=== PATIENT | male | born 1955 | race Caucasian/White ===

== ENCOUNTER 2017-03-18 07:10 | Outpatient (CLI) | payer MEDICAID | END 2017-03-18 07:11 | disposition critical access hospital (66) | LOC: EMS 07:10 | PROVIDERS: ATTEND Surgery | DX: R10.9 Unspecified abdominal pain (principal) | CPT/HCPCS: A0425; A0427 ==

== ENCOUNTER 2017-03-18 07:55 | Emergency (ER) | payer MEDICAID ==
[2017-03-18] MEDS ORDERED: SODIUM CHLORIDE 0.9% 1,000 ML IV ONE ×2 (08:08→10:36)
[2017-03-18] MEDS ORDERED: HYDROmorphone 1 MG/ML SYRINGE IVP STA ×4 (08:08→12:18)
[2017-03-18] MEDS ORDERED: ONDANSETRON 4 MG/2 ML VIAL IVP STA (08:08)
[2017-03-18] MEDS ORDERED: ONDANSETRON 4 MG/2 ML VIAL ONE (08:11)
[2017-03-18] MEDS ORDERED: HYDROmorphone 1 MG/ML SYRINGE ONE ×4 (08:11→12:21)
--- NOTE | 2017-03-18 08:12 | ED Physician Documentation ---
PD HPI ABD PAIN - Stated complaint Stated Complaint: ABD PAIN - Chief complaint Chief Complaint: Abd Pain - History obtained from History obtained from: Patient, EMS - History of Present Illness Timing - onset: How many days ago (2) Timing - duration: Days (2) Timing - details: Gradual onset, Still present, Waxing and waning (severe stabbing character at times.) Quality: Cramping, Aching, Pain Location: LUQ Radiation: Left flank. No: Chest Improved by: No: Eating Worsened by: No: Eating Associated symptoms: Fever (today), Nausea, Vomiting (once yesterday), Diarrhea (once yesterday and once today), Loss of appetite (today). No: Dysuria, Hematuria, Chest pain, Near syncope / syncope Similar symptoms before: Has not had sx before Recently seen: Clinic (has had 2 weeks of mid crampy abd pain not associated with eating. Seen at clinic and Rx Protonix but had not really changed. Has started an antidepressant a month ago and does not feel any side effects at time of starting it.) Review of Systems Constitutional: reports: Fever (today) Nose: denies: Rhinorrhea / runny nose, Congestion Throat: denies: Sore throat Cardiac: denies: Chest pain / pressure, Palpitations Respiratory: denies: Dyspnea, Cough, Wheezing GI: reports: Abdominal Pain, Nausea, Vomiting, Diarrhea. denies: Constipation, Hematemesis, Bloody / black stool : denies: Dysuria, Frequency Skin: reports: Rash (scaly rash left lower leg using steroid cream on it.) Musculoskeletal: denies: Neck pain, Back pain Neurologic: denies: Generalized weakness, Near syncope PD PAST MEDICAL HISTORY - Past Medical History Past Medical History: Yes Cardiovascular: Hypertension Respiratory: None Neuro: None Endocrine/Autoimmune: None GI: None Psych: Anxiety Other Past Medical History: gastritis - Past Surgical History Past Surgical History: No - Present Medications Home Medications: Ambulatory Orders Medication Instructions Recorded Confirmed Atenolol 100 mg PO DAILY 03/18/17 03/18/17 Bupropion HCl 100 mg PO DAILY 03/18/17 03/18/17 Fexofenadine HCl 180 mg PO DAILY 03/18/17 03/18/17 Fluticasone [Flonase] 1 spray PO DAILY 03/18/17 03/18/17 Lisinopril 40 mg PO DAILY 03/18/17 03/18/17 Pantoprazole [Protonix] 40 mg PO DAILY 03/18/17 03/18/17 Sertraline [Zoloft] 100 mg PO DAILY 03/18/17 03/18/17 - Allergies Allergies/Adverse Reactions: Allergies Allergy/AdvReac Type Severity Reaction Status Date / Time No Known Drug Allergies Allergy Verified 03/18/17 08:03 - Social History Does the pt smoke?: Yes Smoking Status: Current every day smoker Does the pt drink ETOH?: Yes ETOH Use: Liquor Substance Use and Type: Marijuana PD ED PE NORMAL - Vitals Vital signs reviewed: Yes - General General: Alert and oriented X 3, Well developed/nourished, Other (appears in pain intermittently, more with movement. ) - HEENT HEENT: PERRL (nonicteric), Pharynx benign, Other (hearing aids noted.) - Neck Neck: Supple, no meningeal sign, No adenopathy - Cardiac Cardiac: RRR, No murmur - Respiratory Respiratory: Clear bilaterally - Abdomen Abdomen: Normal bowel sounds, Soft, Non distended, No organomegaly, Other ( tender Left upper to mid abed with guarding. No perucssion tenderness. Some referred tender from LLQ. ) - Male Male : Deferred - Rectal Rectal: Deferred - Back Back: No CVA TTP - Derm Derm: Normal color - Extremities Extremities: No tenderness to palpate, No edema, No calf tenderness / cord - Neuro Neuro: Alert and oriented X 3, No motor deficit, Normal speech - Psych Psych: Normal mood, Normal affect Results - Vitals Vitals: Vital Signs - 24 hr 03/18/17 07:51 Temperature 38.4 C H Heart Rate 100 Respiratory 20 Rate Blood Pressure 160/74 H O2 Saturation 97 Oxygen O2 Source Room air - Labs Labs: Laboratory Tests 03/18/17 03/18/17 03/18/17 08:37 08:37 10:50 WBC 11.4 H RBC 3.53 L Hgb 8.4 L Hct 26.4 L MCV 74.9 L MCH 23.7 L MCHC 31.7 L RDW 18.7 H Plt Count 295 MPV 7.5 Neut # 9.7 H Lymph # 0.5 L [place] # 1.1 H Eos # 0.0 Baso # 0.0 Absolute Nucleated RBC 0.00 Nucleated RBCs 0.0 Sodium 137 Potassium 3.4 L Chloride 103 Carbon Dioxide 25 Anion Gap 9.0 BUN 16 Creatinine 0.9 Estimated GFR (MDRD) 85 L Glucose 119 H Calcium 8.5 Magnesium 1.9 Total Bilirubin 0.5 AST 18 ALT 13 Alkaline Phosphatase 63 Total Protein 6.3 L Albumin 3.3 Globulin 3.0 Albumin/Globulin Ratio 1.1 Lipase 24 Urine Color YELLOW Urine Clarity CLEAR Urine pH 5.0 Ur Specific [place] 1.010 Urine Protein NEGATIVE Urine Glucose (UA) NEGATIVE Urine Ketones NEGATIVE Urine Occult Blood MODERATE H Urine Nitrite NEGATIVE Urine Bilirubin NEGATIVE Urine Urobilinogen 0.2 (NORMAL) Ur Leukocyte Esterase NEGATIVE Urine RBC 0-5 Urine WBC 0-3 Ur Squamous Epith Cells NONE SEEN Urine Bacteria None Seen Ur Microscopic Review INDICATED Urine Culture Comments NOT INDICATED - Rads (name of study) abd CT Radiology: Prelim report reviewed, Discussed with rads (inflammation around transverse colon with 2.8 cm coalescence c/w early abscess. Also mesenteric nodes and possible liver ledions, rasing concern for colon Ca rather than diverticula.) PD MEDICAL DECISION MAKING - ED course Complexity details: considered differential (seems likely diverticulitis. Not had it in the past. Will get CT to eval for potential abscess/perf given the degree of pain. ), d/w patient, d/w information technology consultant (Dr. Fuller, surgery, with concern of the 2.8 cm abscess, that IR might be needed and suggests transfer. ) , other (Talked with Dr. Rojas, surgery at [facility], who accepts the patient. ) Departure - Departure Clinical Impression: Lesion of colon Diverticulitis Qualifiers: Diverticulitis site: large intestine Diverticulitis bleeding: without bleeding Diverticulitis complication: with abscess Qualified Code(s): K57.20 - Diverticulitis of large intestine with perforation and abscess without bleeding Abdominal pain Qualifiers: Abdominal location: left upper quadrant Qualified Code(s): R10.12 - Left upper quadrant pain Condition: Stable Record reviewed to determine appropriate education?: Yes
[2017-03-18] MEDS ORDERED: ACETAMINOPHEN 1,000 MG/100 ML 100 ML IV STA (08:53)
[2017-03-18] MEDS ORDERED: ACETAMINOPHEN 1,000 MG/100 ML 100 ML IV ONE (08:56)
[2017-03-18 09:02] LABS: BASOPHILS % (AUTO) 0.2 %; HCT - HEMATOCRIT 26.4 % (42.0-52.0); HGB - HEMOGLOBIN 8.4 g/dL (14.0-18.0); LYMPHOCYTES # (AUTO) 0.5 10^3/uL (1.5-3.5); LYMPHOCYTES % (AUTO) 4.6 %; MEAN CORPUSCULAR HEMOGLOBIN 23.7 pg (27.0-31.0); MEAN CORPUSCULAR HGB CONC 31.7 g/dL (32.0-36.0); MEAN CORPUSCULAR VOLUME 74.9 fL (80.0-94.0); MEAN PLATELET VOLUME 7.5 fL (7.4-11.4); MONOCYTES # (AUTO) 1.1 10^3/uL (0.0-1.0); MONOCYTES % (AUTO) 9.9 %; NEUTROPHILS # (AUTO) 9.7 10^3/uL (1.5-6.6); NEUTROPHILS % (AUTO) 85.3 %; RED BLOOD COUNT 3.53 10^6/uL (4.70-6.10); RED CELL DISTRIBUTION WIDTH 18.7 % (12.0-15.0); UNCORRECTED WHITE BLOOD COUNT 11.4 x10^3/uL; WHITE BLOOD COUNT 11.4 x10^3/uL (4.8-10.8)
[2017-03-18 09:05] LABS: ALBUMIN/GLOBULIN RATIO 1.1 (1.0-2.2); BILIRUBIN,TOTAL 0.5 mg/dL (0.2-1.0); CALCIUM 8.5 mg/dL (8.5-10.3); CREATININE 0.9 mg/dL (0.6-1.2); MAGNESIUM 1.9 mg/dL (1.7-2.8); POTASSIUM 3.4 mmol/L (3.5-5.0); TOTAL PROTEIN 6.3 g/dL (6.7-8.2)
[2017-03-18] MEDS ORDERED: IOPAMIDOL-300 100 ML VIAL IVP ONE (09:35)
[2017-03-18] MEDS ORDERED: metroNIDAZOLE 500 MG/100 ML 100 ML IV ONE (10:11)
[2017-03-18] MEDS ORDERED: cefTRIAXone 1 GM in SODIUM CHLORIDE 0.9% MINIBAG 100 ML IV STA (10:12)
--- NOTE | 2017-03-18 10:23 | CT Preliminary Report ---
Exam: CT Abdomen/Pelvis W/ IMPRESSION: 1. Inflammatory change greatest in left upper quadrant involving left aspect of transverse colon. Com plex air and fluid collection between colon and anterior abdominal wall may represent a giant diverti culum with inflammation, however, abscess measuring 2.8 cm diameter is not excluded. 2. Nonspecific colon wall thickening in transverse colon may be related to diverticulitis. Perforated colonic neoplasm not excluded. Free fluid in the abdomen and pelvis small in volume. No additional l oculated collection suspicious for abscess. No generalized free air. 3. Probable adenopathy in left upper quadrant and mid abdomen. Largest probable node 1.6 x 1.4 x 1.6 cm. Lymph nodes show suspicious low-attenuation centers with relative increased rim enhancement. 4. Multifocal liver masses suspicious for metastasis. 5. Nonspecific pancreatic duct dilation and probable pancreas divisum. No discrete pancreatic mass se en. 5. Exam otherwise as above. Report telephoned to Dr. Hernandez at [facility] 10:10 AM 03/18/2017. RADIA The above findings were discussed with Dr. Hernandez by Dr. Aydin Knox at 10:21 hrs on 03/18/17. SITE ID: [id number]
--- NOTE | 2017-03-18 10:26 | CT Report ---
EXAM: CT ABDOMEN AND PELVIS EXAM DATE: 03/18/2017 09:37 AM. CLINICAL HISTORY: Left abd pain for 2 days. COMPARISONS: None. TECHNIQUE: Routine helical CT imaging was performed through the abdomen and pelvis. IV contrast: 100 mL Isovue 300. Enteric contrast: No. Reconstructions: Coronal and sagittal. In accordance with CT protocol optimization, one or more of the following dose reduction techniques w ere utilized for this exam: automated exposure control, adjustment of mA and/or KV based on patient s ize, or use of iterative reconstructive technique. FINDINGS: Lung Bases: Heart size upper limits normal. Otherwise unremarkable. Liver: Multifocal areas of low attenuation in left and right lobe of liver. Pattern is suspicious for metastasis. Largest mass 3.7 cm diameter in subdiaphragmatic right lobe, series 3 image 16. Largest low-attenuation focus in the left lobe segment 3 measures 3.4 cm diameter, series 3 image 27. Gallbladder/Bile Ducts: Unremarkable. Spleen: Normal. Pancreas: Nonspecific prominence of main pancreatic duct measuring up to 4 mm in diameter in the panc reatic head and body. Ductal pattern in pancreas suspicious for pancreas disease and. No mass seen. O therwise unremarkable. Adrenal Glands: Normal. Kidneys: Subcentimeter low-attenuation lower pole focus most likely representing cyst on axial image 46. No additional masses, stones or hydronephrosis. Peritoneal Cavity/Bowel: Complex air and fluid collection between abdominal wall and anterior aspect of distal transverse colon, axial image 40 sagittal image 16, measuring 2.8 x 2.7 x 1.7 cm. Surroundi ng inflammatory change and adjacent thick-walled transverse colon. Multiple diverticula are seen in t he colon. Free fluid in the paracolic gutters and in the dependent pelvis. No generalized free intrap eritoneal air. No bowel obstruction. Multiple Probable enlarged lymph nodes in left upper abdomen and midabdomen anterior. Largest probable node in greater omentum axial image 3 sagittal image 6 14 x 16 x 16 mm. Lymph nodes show a typical pattern of low attenuation centrally. Pelvic Organs: The bladder and visualized pelvic organs are within normal limits. Vasculature: No aneurysms or other significant abnormality. Bones: No bone lesions suspicious for malignancy. No significant abnormality. Other: None. IMPRESSION: 1. Inflammatory change greatest in left upper quadrant involving left aspect of transverse colon. Com plex air and fluid collection between colon and anterior abdominal wall may represent a giant diverti culum with inflammation, however, abscess measuring 2.8 cm diameter is not excluded. 2. Nonspecific colon wall thickening in transverse colon may be related to diverticulitis. Perforated colonic neoplasm not excluded. Free fluid in the abdomen and pelvis small in volume. No additional l oculated collection suspicious for abscess. No generalized free air. 3. Probable adenopathy in left upper quadrant and mid abdomen. Largest probable node 1.6 x 1.4 x 1.6 cm. Lymph nodes show suspicious low-attenuation centers with relative increased rim enhancement. 4. Multifocal liver masses suspicious for metastasis. 5. Nonspecific pancreatic duct dilation and probable pancreas divisum. No discrete pancreatic mass se en. 5. Exam otherwise as above. Report telephoned to Dr. Hernandez at [facility] 10:10 AM 03/18/2017. RADIA The above findings were discussed with Dr. Hernandez by Dr. Aydin Knox at 10:21 hrs on 03/18/17. Referring Provider Line: [phone] SITE ID: [id number]
[2017-03-18] MEDS ORDERED: cefTRIAXone 1 GM VIAL ONE (10:56)
[2017-03-18 10:57] LABS: BILIRUBIN,URINE NEGATIVE (NEGATIVE)
[2017-03-18 11:02] LABS: UA w/ MICROSCOPIC CHARGE YES
[2017-03-18 11:13] LABS: UR CULTURE IF IND NOT INDICATED; WBC,URINE 0-3 /HPF (0-3)
[2017-03-18] MEDS ORDERED: metroNIDAZOLE 500 MG/100 ML 100 ML ONE (12:11)
[2017-03-18 13:01] VITALS: BP 154/74
== END 2017-03-18 12:22 | disposition short-term general hospital (02) ==
LOC: ED 07:55
DX: K63.9 Disease of intestine, unspecified (principal); K57.20 Diverticulitis of large intestine with perforation and abscess without bleeding; I10 Essential (primary) hypertension; F17.200 Nicotine dependence, unspecified, uncomplicated
CPT/HCPCS: 36415; 74177; 80053; 81001; 83690; 83735; 85025; 96361; 96365; 96375; 96376; 99284; 99285; J0131; J1170; Q9967; 81003; 87086

== ENCOUNTER 2017-03-18 12:30 | Outpatient (CLI) | payer MEDICAID | END 2017-03-18 12:31 | disposition short-term general hospital (02) | LOC: EMS 12:30 | PROVIDERS: ATTEND Surgery | DX: R10.9 Unspecified abdominal pain (principal) | CPT/HCPCS: A0170; A0425; A0428 ==

== ENCOUNTER 2017-05-18 09:50 | Outpatient (CLI) | payer MEDICAID ==
[2017-05-18 18:02] LABS: BASOPHILS % (AUTO) 0.8 %; EOSINOPHILS # (AUTO) 0.3 10^3/uL (0.0-0.7); EOSINOPHILS % (AUTO) 5.2 %; HCT - HEMATOCRIT 40.2 % (42.0-52.0); HGB - HEMOGLOBIN 13.2 g/dL (14.0-18.0); LYMPHOCYTES # (AUTO) 2.3 10^3/uL (1.5-3.5); LYMPHOCYTES % (AUTO) 38.5 %; MEAN CORPUSCULAR HEMOGLOBIN 26.6 pg (27.0-31.0); MEAN CORPUSCULAR HGB CONC 32.8 g/dL (32.0-36.0); MEAN CORPUSCULAR VOLUME 81.1 fL (80.0-94.0); MONOCYTES # (AUTO) 0.7 10^3/uL (0.0-1.0); MONOCYTES % (AUTO) 12.3 %; NEUTROPHILS # (AUTO) 2.5 10^3/uL (1.5-6.6); NEUTROPHILS % (AUTO) 43.2 %; NUCLEATED RED BLOOD CELLS AUTO 0.1 /100WBC; RED BLOOD COUNT 4.96 10^6/uL (4.70-6.10); RED CELL DISTRIBUTION WIDTH 25.3 % (12.0-15.0); UNCORRECTED WHITE BLOOD COUNT 5.9 x10^3/uL; WHITE BLOOD COUNT 5.9 x10^3/uL (4.8-10.8)
[2017-05-18 18:28] LABS: PLATELET ESTIMATE, MANUAL NORMAL (130-450,000) (NORMAL); PLATELET MORPHOLOGY NORMAL APPEARANCE (NORMAL)
[2017-05-18 18:41] LABS: ALBUMIN/GLOBULIN RATIO 1.5 (1.0-2.2); BILIRUBIN,TOTAL 0.5 mg/dL (0.2-1.0); BUN - BLOOD UREA NITROGEN 17 mg/dL (6-20); CALCIUM 9.8 mg/dL (8.5-10.3); CARBON DIOXIDE - CO2 26 mmol/L (21-32); CHLORIDE 109 mmol/L (101-111); GFR - MDRD 75 (>89); GLUCOSE 100 mg/dL (70-100); POTASSIUM 4.2 mmol/L (3.5-5.0); SODIUM 141 mmol/L (135-145); TOTAL PROTEIN 7.2 g/dL (6.7-8.2)
== END 2017-05-18 09:51 | disposition home or self-care (01) ==
LOC: LAB.F 09:50
PROVIDERS: ATTEND Internal Medicine
DX: R51 Headache (principal)
CPT/HCPCS: 36415; 80053; 85025; 85651; 86140

== ENCOUNTER 2017-09-19 14:42 | Outpatient (CLI) | payer MEDICAID | END 2017-09-19 14:43 | disposition home or self-care (01) | LOC: LAB.F 14:42 | PROVIDERS: ATTEND Internal Medicine Hematology & Oncology | DX: Z53.9 Procedure and treatment not carried out, unspecified reason (principal) ==

== ENCOUNTER 2017-09-26 13:56 | Emergency (ER) | payer MEDICAID ==
--- NOTE | 2017-09-26 16:29 | XRAY Preliminary Report ---
Exam: XR CHEST 2 VIEW PA/LAT IMPRESSION: No acute disease. RADIA SITE ID: [id number]
--- NOTE | 2017-09-26 16:32 | XRAY Report ---
EXAM: CHEST RADIOGRAPHY EXAM DATE: 09/26/2017 04:22 PM. CLINICAL HISTORY: Chest pain . COMPARISON: None. TECHNIQUE: 2 views. FINDINGS: Lungs/Pleura: Hyperexpanded with flattened diaphragm compatible with COPD. No localized infiltrate, c onsolidation, effusion, or pneumothorax. Mediastinum: Heart and mediastinal contours are unremarkable. Upper lobe vessels not distended. Other: Right Port-A-Cath. IMPRESSION: No acute disease. RADIA Referring Provider Line: [phone] SITE ID: [id number]
--- NOTE | 2017-09-26 16:52 | ED Physician Documentation ---
History of Present Illness - Stated complaint Stated Complaint: ESOPHIGIAL PX - Chief complaint Chief Complaint: Abd Pain - History obtained from History obtained from: Patient (pt is here for 4 days of problems swallowing. Pt states that 30 years ago he had an impacted Food bolus. had a scope in the past but that was 15 years ago. he states that 4 days ago he started to have pain with swallowing. is under chemo for colon cancer, no chest pain, no shortness of breath, did have some streaking of blood with a vomit.) Review of Systems Constitutional: denies: Fever, Chills Cardiac: reports: Chest pain / pressure (epigastric pain). denies: Palpitations Respiratory: denies: Dyspnea, Cough GI: reports: Abdominal Pain (epigastric pain), Other (colostomy bag in place). denies: Abdominal Swelling, Nausea : denies: Dysuria, Frequency Skin: denies: Rash, Lesions Musculoskeletal: denies: Joint swelling PD PAST MEDICAL HISTORY - Past Medical History Past Medical History: Yes Cardiovascular: Hypertension Respiratory: None Neuro: None Endocrine/Autoimmune: None GI: None, Esophageal varices Psych: Anxiety Other Past Medical History: colon CA - Past Surgical History Past Surgical History: No General: Bowel surgery - Present Medications Home Medications: Ambulatory Orders Medication Instructions Recorded Confirmed Atenolol 100 mg PO DAILY 03/18/17 09/26/17 Lisinopril 40 mg PO DAILY 03/18/17 09/26/17 Sertraline [Zoloft] 100 mg PO DAILY 03/18/17 09/26/17 Multivitamin [Multiple Vitamins] 1 each PO DAILY 04/24/17 09/26/17 Vitamin B Complex 1 each PO DAILY 04/24/17 09/26/17 Omeprazole [PriLOSEC] 20 mg PO DAILY 06/13/17 09/26/17 HYDROcod/ACETAM 5/325 [[place] 5/325] 1 - 2 tab ORAL Q4HR PRN 06/30/17 09/26/17 Fexofenadine HCl 180 mg PO DAILY 07/12/17 09/26/17 LORazepam [Ativan] 0.5 mg PO HS 08/22/17 09/26/17 Prochlorperazine Maleate 10 mg PO Q6H PRN 08/22/17 09/26/17 [Compazine] Ondansetron [Zuplenz] 4 mg PO Q4H PRN #30 film 08/25/17 09/26/17 Sucralfate [Carafate] 1 gm PO ACHS #120 ml 09/26/17 - Allergies Allergies/Adverse Reactions: Allergies Allergy/AdvReac Type Severity Reaction Status Date / Time No Known Drug Allergies Allergy Verified 03/18/17 08:03 - Social History Does the pt smoke?: Yes Smoking Status: Current every day smoker Does the pt drink ETOH?: Yes Does the pt have substance abuse?: No - POLST Patient has POLST: No PD ED PE NORMAL - Vitals Vital signs reviewed: Yes - General General: Alert and oriented X 3, No acute distress, Well developed/nourished - Cardiac Cardiac: RRR, No murmur - Respiratory Respiratory: No respiratory distress, Clear bilaterally - Abdomen Abdomen: Non tender, Other (colostomy bag in place ) - Derm Derm: Normal color, No rash - Neuro Neuro: Alert and oriented X 3, press maintainer 2-12 intact, No motor deficit, No sensory deficit Eye Opening: Spontaneous Motor: Obeys Commands Verbal: Oriented GCS Score: 15 - Psych Psych: Normal mood, Normal affect Results - Vitals Vitals: Vital Signs - 24 hr 09/26/17 09/26/17 09/26/17 14:03 15:50 16:14 Temperature 36.4 C L 36.8 C Heart Rate 83 64 72 Respiratory 18 15 13 Rate Blood Pressure 140/89 H 141/73 H 142/79 H O2 Saturation 99 99 98 09/26/17 16:50 Temperature 37.1 C Heart Rate 67 Respiratory 10 L Rate Blood Pressure 135/83 H O2 Saturation 99 Oxygen O2 Source Room air - Rads (name of study) CXR Radiology: Final report received PD MEDICAL DECISION MAKING - ED course Complexity details: d/w patient ED course: pt has a benign abdominal exam. CXR neg. pt with hx and PE that is C/W strictures. we discussed this. pt is on prilosec. No need for emergent GI consult. He has been in contact with a GI provider but does not have an appointment yet. Pt is not dehydrated. we discussed liquid diet and return precautions. Departure - Departure Disposition: 01 Home, Self Care Clinical Impression: Esophageal abnormality, Dysphagia Condition: Good Instructions: Dysphagia Follow-Up: primary, care provider [Other] Prescriptions: Sucralfate [Carafate] 1 gm PO ACHS #120 ml Comments: Chew your food. Recommend a mainly liquid diet until you see a GI provider. Return to the ER for any new worsening symptoms.
[2017-09-26 17:12] VITALS: BP 143/84
== END 2017-09-26 17:11 | disposition home or self-care (01) ==
LOC: ED 13:56
DX: R13.10 Dysphagia, unspecified (principal); K22.8 Other specified diseases of esophagus; I10 Essential (primary) hypertension; C18.9 Malignant neoplasm of colon, unspecified; F17.200 Nicotine dependence, unspecified, uncomplicated; Z93.3 Colostomy status; Z92.21 Personal history of antineoplastic chemotherapy
CPT/HCPCS: 71020; 99283

== ENCOUNTER 2018-01-26 13:20 | Emergency (ER) | payer MEDICAID ==
[2018-01-26] MEDS ORDERED: TETANUS/DIPHTHERIA/PERTUSSIS 0.5 ML SYRINGE IM ONE (13:55)
--- NOTE | 2018-01-26 13:59 | ED Physician Documentation ---
PD HPI UPPER EXT INJURY - Stated complaint Stated Complaint: L THUMB LAC - Chief complaint Chief Complaint: Laceration - History obtained from History obtained from: Patient - History of Present Illness Location: Left, Other (He cut his left thumb yesterday while working, he was chopping vegetables. Tetanus is unknown. No other injuries. This is about 10 AM yesterday, 27 hours ago.) Review of Systems Constitutional: reports: Reviewed and negative Cardiac: reports: Reviewed and negative Respiratory: reports: Reviewed and negative PD PAST MEDICAL HISTORY - Past Medical History Past Medical History: Yes Cardiovascular: Hypertension Respiratory: None Neuro: None Endocrine/Autoimmune: None GI: None, Esophageal varices Psych: Anxiety - Past Surgical History Past Surgical History: No General: Bowel surgery - Present Medications Home Medications: Ambulatory Orders Medication Instructions Recorded Confirmed Atenolol 100 mg PO DAILY 03/18/17 01/09/18 Lisinopril 40 mg PO DAILY 03/18/17 01/09/18 Sertraline [Zoloft] 100 mg PO DAILY 03/18/17 01/09/18 Multivitamin [Multiple Vitamins] 1 each PO DAILY 04/24/17 01/09/18 Vitamin B Complex 1 each PO DAILY 04/24/17 01/09/18 Fexofenadine HCl 180 mg PO DAILY 07/12/17 01/09/18 LORazepam [Ativan] 0.5 mg PO HS 08/22/17 01/09/18 Ondansetron [Zuplenz] 4 mg PO Q4H PRN #30 film 08/25/17 01/09/18 Sucralfate [Carafate] 1 gm PO BID 10/03/17 01/09/18 Gabapentin 300 mg PO DAILY 12/12/17 01/09/18 HYDROcod/ACETAM 5/325 [[place] 5/325] 1 - 2 tab ORAL Q12H PRN 12/12/17 01/09/18 Sucralfate [Carafate] 1 gm PO ACHS 12/12/17 01/09/18 HYDROcod/ACETAM 5/325 [[place] 5/325] 1 - 2 ea PO Q6H PRN #7 tablet 01/26/18 - Allergies Allergies/Adverse Reactions: Allergies Allergy/AdvReac Type Severity Reaction Status Date / Time No Known Drug Allergies Allergy Verified 01/26/18 13:47 - Social History Does the pt smoke?: Yes Smoking Status: Current every day smoker Does the pt drink ETOH?: Yes Does the pt have substance abuse?: No - Immunizations Immunizations are current?: No - POLST Patient has POLST: No PD ED PE NORMAL - Vitals Vital signs reviewed: Yes - General General: Alert and oriented X 3, No acute distress - Back Back: No CVA TTP, No spinal TTP - Extremities Extremities: Other (On the tip of the left thumb he has a partial thickness amputation of skin only measuring less than 1 cm.) - Neuro Neuro: Alert and oriented X 3, Normal speech Results - Vitals Vitals: Vital Signs - 24 hr 01/26/18 13:41 Temperature 36.9 C Heart Rate 62 Respiratory 14 Rate Blood Pressure 131/79 H O2 Saturation 95 Oxygen O2 Source Room air PD MEDICAL DECISION MAKING - ED course ED course: The wound was irrigated and dressed with Vaseline gauze and tube gauze and he was counseled on wound care. This should heal without specific intervention otherwise. Departure - Departure Disposition: 01 Home, Self Care Clinical Impression: Amputation, thumb, traumatic Qualifiers: Encounter type: initial encounter Laterality: left Qualified Code(s): S68.012A - Complete traumatic metacarpophalangeal amputation of left thumb, initial encounter Condition: Good Record reviewed to determine appropriate education?: Yes Instructions: ED Laceration Amputation Finger Tip Open Tx Prescriptions: HYDROcod/ACETAM 5/325 [[place] 5/325] 1 - 2 ea PO Q6H PRN #7 tablet PRN Reason: Pain Comments: Follow-up with your doctor next week for wound care. Return if worse. Your blood pressure was elevated today on check into the emergency department. This does not mean that you have hypertension, it is a common phenomenon to come to the emergency department and have elevated blood pressure. I recommend that you see your primary care physician within the week to have it rechecked when you are feeling better.
[2018-01-26 14:23] VITALS: BP 121/78
== END 2018-01-26 14:21 | disposition home or self-care (01) ==
LOC: ED 13:20
DX: S68.012A Complete traumatic metacarpophalangeal amputation of left thumb, initial encounter (principal); W45.8XXA Other foreign body or object entering through skin, initial encounter; Y93.G9 Activity, other involving cooking and grilling; I10 Essential (primary) hypertension; F17.200 Nicotine dependence, unspecified, uncomplicated
CPT/HCPCS: 99283

== ENCOUNTER 2019-02-28 11:46 | Outpatient (CLI) | payer MEDICARE, OTHER ==
[2019-02-28] MEDS ORDERED: IOVERSOL 320 50 ML VIAL ONE (12:01)
[2019-02-28] MEDS ORDERED: IOVERSOL 320 100 ML VIAL IVP ONE ×2 (12:01→18:09)
[2019-02-28] MEDS ORDERED: IOVERSOL 320 50 ML VIAL PO ONE (18:09)
--- NOTE | 2019-03-01 00:04 | CT Report ---
Reason: COLON CA, NEUROPATHY Procedure Date: 02/28/2019 Accession Number: [id number] / [id number] Procedure: CT - CHEST W CPT Code: FULL RESULT: EXAM: CT CHEST EXAM DATE: 02/28/2019 01:31 PM. CLINICAL HISTORY: COLON CA, NEUROPATHY. COMPARISONS: CHEST W/ 10/30/2018 9:44 AM. TECHNIQUE: Routine helical CT imaging was performed through the chest. IV contrast: None. Reconstructions: Coronal and sagittal. In accordance with CT protocol optimization, one or more of the following dose reduction techniques were utilized for this exam: automated exposure control, adjustment of mA and/or KV based on patient size, or use of iterative reconstructive technique. FINDINGS: Lungs/Pleura: There are a few scattered pulmonary nodules. Right upper lobe, series 3 image 20 small 3 mm nodule contiguous with the pleura unchanged. Left upper lobe series 3 image 21. Small pulmonary nodule measuring 5 mm unchanged. Superior segment left lower lobe series 3 image 28 small 3 mm pulmonary nodule unchanged. Left upper lobe series 3 image 31 small 3 mm pulmonary nodule unchanged. Small pulmonary nodule left lower lobe series 3 image 46 measuring 7 mm unchanged. Left lower lobe close to the left heart border small pulmonary nodule on series 3 image 54 measuring 8 mm slightly less conspicuous. Also on series 3 image 56 and other pulmonary nodule in the left lower lobe measuring 6 mm less conspicuous than on the prior study. Right lower lobe series 3 image 49 small 4 mm pulmonary nodule unchanged. Right lower lobe series 3 image 48 small pulmonary nodule measuring 8 mm unchanged. Importantly, no new pulmonary nodules have developed. Mediastinum: The diameter of the ascending thoracic aorta is aneurysmal measuring 48 mm. The diameter of the descending thoracic aorta measures 27 mm. The heart is not enlarged. There is no lymphadenopathy. Bones: Unremarkable. Visualized Abdomen: Unremarkable. Other: None. IMPRESSION: 1. Several small bilateral pulmonary nodule stable compared to the prior study. 2. Aneurysmal ascending thoracic aorta. No evidence for dissection. RADIA
--- NOTE | 2019-03-01 10:19 | CT Report ---
Reason: COLON CA, NEUROPATHY Procedure Date: 02/28/2019 Accession Number: [id number] / [id number] Procedure: CT - Abdomen/Pelvis W CPT Code: FULL RESULT: EXAM: CT ABDOMEN AND PELVIS WITH IV CONTRAST EXAM DATE: 02/28/2019 01:31 PM. CLINICAL HISTORY: Colon cancer, neuropathy. COMPARISONS: 10/30/2018. TECHNIQUE: Routine helical CT imaging was performed through the abdomen and pelvis. IV contrast: 100 cc of Optiray 320 contrast. Enteric contrast: 50 cc of Readi-Cat. Reconstructions: Coronal and sagittal. In accordance with CT protocol optimization, one or more of the following dose reduction techniques were utilized for this exam: automated exposure control, adjustment of mA and/or KV based on patient size, or use of iterative reconstructive technique. FINDINGS: Lung Bases: Dictated separately; please see separate chest CT report. Multiple basilar pulmonary nodules consistent with metastases. 3 nodules included on comparison exam of 10/30/2018 show minimal increase in volume. Liver: Multiple hepatic masses as previously described, majority of which are unchanged. Dominant heterogeneously rim-enhancing hypoechoic mass at the junctions of segments 8 and 4 showing interval increase in size, today measuring 42 x 27 x 41 mm compared to 25 x 38 x 29 mm on the prior exam. No new lesions appreciated. Gallbladder/Bile Ducts: Stable cholelithiasis without evidence of cholecystitis. No biliary ductal dilatation. Spleen: Normal. Pancreas: Normal. Adrenal Glands: Normal. Kidneys: No stone or hydronephrosis. Stable probable cortical cyst lower pole left kidney. Peritoneal Cavity/Bowel: Stable operative changes status post partial colectomy with a colostomy over the right mid abdomen. There is a colostomy defect which contains cecum and a portion of ascending colon as well as the ileocecal valve and portions of the appendix. No obstruction. Nonspecific low density in the region of the ileocecal valve most likely artifact of adherent stool. Stable appearance of the Marilyn's pouch with diverticulosis of the sigmoid and long-standing radiodense stool in the rectum. Stomach and small bowel are grossly unremarkable. There is new localized adenopathy in the high interaortocaval station with an 18 mm central low-density node seen best on series 6 image 27. New right pericrural node measuring 15 mm, series 6 image 31. No free fluid or free air. No masses or acute inflammatory process. The appendix is well visualized and normal. Pelvic Organs: Normal. The bladder and visualized pelvic organs are within normal limits. Vasculature: No aneurysms or other significant abnormality. Bones: No significant abnormality. Other: None. IMPRESSION: 1. Evidence of disease progression with enlargement in dominant hepatic mass, new focal adenopathy, and mild increase in size of basilar pulmonary nodules as described. 2. Stable cholelithiasis without evidence of cholecystitis. 3. Stable diverticulosis of the Marilyn's pouch. RADIA
== END 2019-02-28 11:47 | disposition home or self-care (01) ==
LOC: DI 11:46
PROVIDERS: ATTEND Internal Medicine Hematology & Oncology
DX: C18.9 Malignant neoplasm of colon, unspecified (principal); R91.8 Other nonspecific abnormal finding of lung field; I71.2 Thoracic aortic aneurysm, without rupture; R16.0 Hepatomegaly, not elsewhere classified; R59.0 Localized enlarged lymph nodes; K80.20 Calculus of gallbladder without cholecystitis without obstruction; K57.30 Diverticulosis of large intestine without perforation or abscess without bleeding
CPT/HCPCS: 71260; 74177; Q9967

== ENCOUNTER 2019-03-21 09:22 | Outpatient (CLI) | payer MEDICARE, OTHER ==
--- NOTE | 2019-03-21 23:00 | CONSULTATION NOTE ---
Palliative Care Consultation - Referral Referring Provider: Ivonne ALONZO Time of Visit: 0930-10:45 Referral setting: [facility] [place] Referral Reason: Metastatic Colon Cancer with liver mets/Peripheral neuropathy - Information Sources Records reviewed: RN notes reviewed, Previous records reviewed History/Review of Systems obtained from: Patient Exam limitations: No limitations - History of Present Illness Brief History of Present Illness: This is a 64-year-old gentleman who presented with acute pain and diarrhea, after several weeks of distress went to the ED in 03/2017. He was diagnosed with a bowel perforation, and had surgery at [place], this was complicated by alcohol withdrawal, which at that time was problematic, reports has since stopped drinking. He was found to have stage IV metastatic colon cancer with liver involvement, and underwent a laparotomy with transverse colectomy and colostomy with mobilization of the splenic flexure. He was originally treated with modified FOLFOX 6 with Avastin. He did have progression and was treated with FOLFIRI, again with progression and restarted on FOLFOX with Avastin and 02/2019. Last CT scan on 02/28/2019 shows several small bilateral pulmonary nodules stable compared to prior studies, multiple hepatic masses, with evidence of disease progression with enlargement in the dominant hepatic mass, new focal adenopathy, stable cholelithiasis without evidence of cholecystitis.He has high anxiety regarding his prognosis, has progressive peripheral neuropathy and abdominal pain. And presents for establishment with palliative care for pain and symptom management, advanced care planning, and anticipatory guidance. Medical/Surgical History - Past Medical History Cardiovascular: reports: Hypertension Respiratory: reports: None Neuro: reports: Peripheral neuropathy Endocrine/Autoimmune: reports: None GI: reports: GERD, Esophageal varices, Other (abdominal hernia; colostomy for colon cancer with liver mets) Psych: reports: Anxiety Musculoskeletal: reports: Gout, Fatigue, Chronic back pain MRSA Hx?: No - Past Surgical History General: reports: Bowel surgery, EGD - Substance History Use: Uses substance without health or social issues: Tobacco (smokes about 1/2 pack a day), Alcohol (hx of abuse) Social History - Living Situation Living arrangement: At home Living Situation: With family Support System: Patient does have one son, he is in [place]. He reports he is a big support to him. He lives with his mother who is 87 years old, who is starting to show signs and symptoms of 18 and concern about her health. They rent a house in [place], Reports significant financial stressors, he is on [employer] eye disability. 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 He has a father in [place] and stepmother, who is poor health as well, concerned about father's dementia and ability to understand of his condition. [place] have [place]. This is his fourth year here in [facility], reports is not a social person, but does have some friends he has not been able to work because of his difficulty standing on his feet, and pain in his hands. Family History - Family History Family History: Mother: Alive and Well, Father: Alive and Well, Alzheimer's Disease, CAD, Sister: Alive and Well Medications/Allergies - Medications Home Medications: Ambulatory Orders Medication Instructions Recorded Confirmed Atenolol 100 mg PO DAILY 03/18/17 03/22/19 Lisinopril 40 mg PO DAILY 03/18/17 03/22/19 Sertraline [Zoloft] 100 mg PO DAILY 03/18/17 03/22/19 Multivitamin [Multiple Vitamins] 1 each PO DAILY 04/24/17 03/22/19 Vitamin B Complex 1 each PO DAILY 04/24/17 03/22/19 Fexofenadine HCl 180 mg PO DAILY 07/12/17 03/22/19 Oxycodone HCl 10 mg PO Q4HR PRN MDD 5 X DAY 07/24/18 03/22/19 Ondansetron [Zofran Odt] 8 mg PO Q8H PRN 08/21/18 03/22/19 LORazepam [Lorazepam] 0.5 mg PO Q6HR 12/05/18 03/22/19 Cyclobenzaprine [Flexeril] 10 mg PO TID PRN 03/05/19 03/22/19 Pregabalin [Lyrica] 100 mg PO BID MDD titrate tid one 03/22/19 03/22/19 week - Allergies Allergies/Adverse Reactions: Allergies Allergy/AdvReac Type Severity Reaction Status Date / Time No Known Drug Allergies Allergy Verified 03/19/19 10:37 Review of Systems - Constitutional Constitutional: reports: Fatigue, Weight gain. denies: Fever, Chills - Eyes Eyes: reports: Vision loss, Corrective lenses - Ears, Nose & Throat Ears, Nose & Throat: reports: Hearing loss, Hearing aids, Postnasal drainage, Dry mouth - Cardiovascular Cardiovascular: reports: Exertional dyspnea, Decr. exercise tolerance. denies: Chest pain - Respiratory Respiratory: denies: SOB at rest - Gastrointestinal Gastrointestinal: reports: Good appetite, Other (colostomy). denies: Nausea - Musculoskeletal Musculoskeletal: reports: Back pain (recent acute back injury; resolved), Stiffness, Limited range of motion, Muscle weakness - Integumentary Integumentary: reports: Dryness - Neurological Neurological: reports: General weakness, Headache - Psychiatric Psychiatric: reports: Depression, Anxiety - Hematologic/Lymphatic Hematologic/Lymphatic: reports: Anemia - All Other Systems All Other Systems: reports: Reviewed and negative Physical Exam - Vital Signs Pulse Rate: 72 Respiratory Rate: 18 Blood Pressure: 141/104 (has not taken his b/p meds yet) - Physical Exam General Appearance: positive: Alert, Anxious Eyes Bilateral: positive: Normal inspection Neck: positive: No JVD, Trachea midline Cardiovascular: positive: Regular rate & rhythm Respiratory: positive: No respiratory distress, Diminished in bases. negative: Wheezes, Rales, Rhonchi Abdomen: positive: Non-tender, Soft, Other (noted abdominal hernia to right of colostomy; not easily reduced; patient reports weight gain worsened) Skin: positive: Pallor, Dryness Extremities: positive: No pedal edema Neurologic/Psychiatric: positive: Oriented x3, Depressed mood/affect Palliative Care - POLST Patient has POLST: No Pain: Pain worsening, Location (Patient reports worsening pain in his feet, also has bilateral pain in his thumbs, has been evaluated for surgery, orthopedist would not do it with his current health problems. His other pain is mostly mid abdominal kind of vague and achy in nature. He has been on gabapentin 300 mg 3 times daily, for 1 and half years feeling that does not help his peripheral neuropathy. He has oxycodone 5 mg at the limit of 5 and 24 hours, he usually needs to take 2 in the morning as it is acute and worsening. He often runs out as he is having progressive pain. He reports he does have headache now with a fast and this is new, is not addressed by the oxycodone but does respond to intermittent excedrin) Tiredness/Fatigue: Moderate (4-6) Drowsiness/Sedation: Moderate (4-6) Nausea: Mild (1-3) Depression: Moderate (4-6) Anxiety: Moderate (4-6) Dyspnea: Mild (1-3) Anorexia: Moderate (4-6) (patient has actually had weight gain) Sleep: Sleeps poorly, Variable sleep pattern Constipation: No Feelings of wellbeing/Perceived Quality of Life: Fair, Acceptable Performance Status: Patient's activity level is actually limited by his pain, with standing or walking does become worse. He is still able to drive, ambulate short distances and attend his own ADLs. I would put PPS 70% - Palliative Care Discussion: Patient's understanding of his disease is that it is palliative treatment in nature, he is having some increased anxiety with his CEA increasing, and needing to re-start alternative chemotherapy. He would like a more firm prognosis, if he had less than 2 years, he reports there would be other priorities or goals as far as follow-up with his family. Patient recognizes he is getting to the latter years of his original prognosis, but feels he still has several from understanding from oncologist. Patient does have a D POA, his son Mohsen Thorpe [phone] with an alternative of his mother Hodan Luong [phone]. He does have a POLST with attempt CPR/limited additional interventions filled out in May 2018. Patient is not really visited long-term goals are long-term planning regarding his disease, though is quite clear if his time is limited he has some other priorities he would be pursuing. Is very open and eager for me to follow-up with oncologist. Results - Lab Results Lab results reviewed: Yes Impression and Recommendations - Palliative Care Impression: This is a 64-year-old gentleman with metastatic colon cancer with liver and lung mets. Patient presents with poorly controlled pain, peripheral neuropathy secondary to prior chemotherapy, and progressive fatigue. Palliative care to establish rapport, ongoing support for pain and symptom management, and anticipatory guidance. Recommendations/Counseling Done: 1. Pain of neoplastic origin. Patient's most significant pain is actually his feet, limiting his ability to ambulate, tolerate activity. He also has severe neuropathic pain bilaterally in his thumbs, though this is present prior to his diagnosis of 6 to 7 years. Patient has been on gabapentin 300 mg 3 times daily, does not feel this is effective. Discussed could titrate up, or would recommend transitioning to Lyrica. Patient currently with some insurance issues, will go ahead and write prescription for Lyrica 100 mg twice daily, titrate up to 300 mg total over the next 2 to 3 weeks. Patient unable to get covered, will titrate up gabapentin. Patient also not getting adequate relief from 5 mg of oxycodone, he also has deep visceral abdominal pain, most acute first thing the morning. He is to using 2 pills with adequate relief, will increase his oxycodone to 10 mg tabs, given patient's history of substance abuse. Counseling provided regarding management of pain, and limitations at this point will make 5/tabs in 24 hours. Will focus on Lyrica, or titration of gabapentin. If this is not effective will transition over to fentanyl or methadone. 2. Abdominal hernia. Patient has had significant weight gain, discussed current intake and dietary choices. Counseling provided regarding decreasing fat and sugars, patient would benefit from 10 to 15 pound weight loss to decrease discomfort from hernia, and abdominal pressure. Patient verbalized understanding, and participated in problem solving. 3. Anxiety. Patient has multiple stressors including financial. Patient very much would like to have a better idea of his prognosis and expected long-term treatment plan. Will follow up with Dr. Zayas to assist with goal setting. Patient feels if he knew he had 2 years or less, he would be making different priorities and follow-up with his family. Patient's last scan did show progressive disease, and CEA has been increasing. Patient's most recent change in treatment plan was in February 2019, will await next set of scanning, but will continue to provide support and information as available and translation into prognosis. 4. Tobacco abuse. Counseling provided regarding patient's use of tobacco, is smoke about half a pack a day. Instructed prefer patient do not use Chantix given his multiple other medications he is on. Counseling provided just to focus on decreasing number of cigarettes daily, patient is doing it out of habit and with anxiety. Problem solving provided regarding ways to approach his current use. 5. Advanced care planning. Patient hope is to continue to have quality and quantity of life. Patient does have a son in [place], who is his D POA Mohsen Thorpe [phone]. Will revisit [facility] and goals of care and future visits, patient needing more information regarding his current prognosis. He feels he would make different priorities if he knew the "end was sooner". Counseling provided regarding the role of palliative care, and setting of rapport. Time Spent: 75 minutes was given 50% of this done in counseling regarding advanced care planning, pain and symptom management, counseling for safety regarding opioids and transition to Lyrica. Palliative care setting of rapport and counseling role of palliative care support.
== END 2019-03-21 09:23 | disposition home or self-care (01) ==
LOC: PC 09:22
PROVIDERS: ATTEND Nurse Practitioner Adult Health
DX: Z51.5 Encounter for palliative care (principal); C18.9 Malignant neoplasm of colon, unspecified; C78.7 Secondary malignant neoplasm of liver and intrahepatic bile duct; C78.00 Secondary malignant neoplasm of unspecified lung; Z93.3 Colostomy status; I10 Essential (primary) hypertension; G62.9 Polyneuropathy, unspecified; K46.9 Unspecified abdominal hernia without obstruction or gangrene; K21.9 Gastro-esophageal reflux disease without esophagitis; I85.00 Esophageal varices without bleeding; F41.9 Anxiety disorder, unspecified; F32.9 Major depressive disorder, single episode, unspecified; M10.9 Gout, unspecified; R53.83 Other fatigue; G89.29 Other chronic pain; M54.9 Dorsalgia, unspecified; F17.210 Nicotine dependence, cigarettes, uncomplicated; F10.11 Alcohol abuse, in remission; H54.7 Unspecified visual loss; H91.90 Unspecified hearing loss, unspecified ear; R53.1 Weakness; D64.9 Anemia, unspecified; Z74.09 Other reduced mobility; Z79.891 Long term (current) use of opiate analgesic
CPT/HCPCS: 99205

== ENCOUNTER 2019-04-02 11:16 | Outpatient (CLI) | payer MEDICARE, OTHER ==
--- NOTE | 2019-04-02 16:57 | CONSULTATION NOTE ---
Palliative Care Follow Up - Referral Referring Provider: Ivonne ALONZO Time of Visit: [id number] [place] setting[place] [facility] [place] Reason: Pain of neoplastic origin/Peripheral neuropathy/Met Colon Cancer - Information Sources Records reviewed: RN notes reviewed History/Review of Systems obtained from: Patient Exam limitations: No limitations - History of Present Illness Update Brief HPI Update: Patient has stage IV metastatic colon cancer with liver involvement, he is currently on FOLFOX with Avastin. His last CT scan 02/28/2019 showed several small bilateral pulmonary nodules stable compared to prior, but does have some evidence of disease progression with dominant hepatic mass, and new focal adenopathy. Patient has significant peripheral neuropathy, and moderate right upper abdominal pain. Patient's been on gabapentin 300 mg 3 times daily for long period of time, without any improvement. Had prescribed trialing Lyrica, unfortunately his insurance will not cover and he has a significant co-pay. We had titrated up to 400 mg as instructed, we discussed we still have some leeway to go, and we will go ahead and titrate him up to 600 mg 3 times daily, titration schedule provided and patient verbalized understanding. Patient has had better pain control with the oxycodone in his right upper quadrant of 10 mg, he is using about 4 tabs a day. Patient continues with high anxiety, feels like his family does not understand the seriousness of addition, reports if he had a better idea of his prognosis, particularly is less than 2 years, would be setting some different goals. And follow-up with oncology Dr. Zayas, felt he still may have extended past this imposed timeline. Patient will be due for rescanning, come May, at that point in time most likely be more clear as far as patient's ongoing prognosis and response to treatment. Also complaining of increased shortness of breath, this occurs at bedtime when laying flat. Reports continues to have a productive cough of dark brown sputum. He is continuing to smoke a half a pack of cigarettes a day. He reports these episodes last about 2 minutes, resolved with sitting up and taking deep breaths. He does have some expiratory wheezing and fine crackles in his left lower lobe. He does have some Advair and pro-air at home from his last bout of bronchitis. Social History - Living Situation Living arrangement: At home Living Situation: With family Support System: Patient lives with his mother, who is 87 years old, and is declining in health as well. He also has a son in [place], his father is quite ill also. [place] is fairly isolated socially. [place] Medications/Allergies - Medications Home Medications: Ambulatory Orders Medication Instructions Recorded Confirmed Atenolol 100 mg PO DAILY 03/18/17 04/02/19 Lisinopril 40 mg PO DAILY 03/18/17 04/02/19 Sertraline [Zoloft] 150 mg PO DAILY 03/18/17 04/02/19 Multivitamin [Multiple Vitamins] 1 each PO DAILY 04/24/17 04/02/19 Vitamin B Complex 1 each PO DAILY 04/24/17 04/02/19 Fexofenadine HCl 180 mg PO DAILY 07/12/17 04/02/19 Oxycodone HCl 10 mg PO Q4HR PRN MDD 5 X DAY 07/24/18 04/02/19 Ondansetron [Zofran Odt] 8 mg PO Q8H PRN 08/21/18 04/02/19 LORazepam [Lorazepam] 0.5 mg PO Q6HR 12/05/18 04/02/19 Cyclobenzaprine [Flexeril] 10 mg PO TID PRN 03/05/19 04/02/19 Albuterol Sulfate [Proair Hfa 2 puffs INH Q4HR PRN 04/02/19 04/02/19 Inhaler] Gabapentin 600 mg PO TID MDD titrating 04/02/19 04/02/19 - Allergies Allergies/Adverse Reactions: Allergies Allergy/AdvReac Type Severity Reaction Status Date / Time No Known Drug Allergies Allergy Verified 04/02/19 11:38 Review of Systems - Constitutional Constitutional: reports: Fatigue, Weight loss (loss of 5 pounds on purpose with decrease of sugar intake). denies: Fever, Chills - Ears, Nose & Throat Ears, Nose & Throat: reports: Hearing loss, Hearing aids, Nasal congestion - Cardiovascular Cardiovascular: reports: Decr. exercise tolerance - Respiratory Respiratory: reports: Cough, Sputum production (productive brown sputm), SOB with exertion, Other (reports when laying flat get brief episodes breathlessness resolve after 2 minutes; happening nightly; continues to smoke 1/2 pack daily) - Gastrointestinal Gastrointestinal: reports: Abdominal pain, Early satiety. denies: Nausea - Musculoskeletal Musculoskeletal: reports: Stiffness, Limited range of motion, Muscle weakness - Integumentary Integumentary: reports: Dryness - Neurological Neurological: reports: Other (peripheral neuropathy) - Psychiatric Psychiatric: reports: Anxiety (remains very anxious overall about his condition) - Hematologic/Lymphatic Hematologic/Lymphatic: reports: Anemia - All Other Systems All Other Systems: reports: Reviewed and negative Physical Exam - Vital Signs Temperature: 36.5 C Pulse Rate: 57 Respiratory Rate: 19 O2 Saturation: 98 (ra @ rest) Blood Pressure: 135/85 - Physical Exam General Appearance: positive: Anxious Eyes Bilateral: positive: Normal inspection ENT: positive: No signs of dehydration Neck: positive: No JVD, Trachea midline Cardiovascular: positive: Regular rate & rhythm Respiratory: positive: No respiratory distress, Wheezes (exp wheeze LLL; diminished in base) Abdomen: positive: Soft, Nml bowel sounds, Distended Skin: positive: Pallor, Dryness, Other (feet fungus right foot) Extremities: positive: No pedal edema Neurologic/Psychiatric: positive: Oriented x3 Palliative Care - POLST Patient has POLST: Yes POLST Status: Selective Treatment, Full Code Pain: Pain unchanged, Location (On gabapentin 400 mg 3 times daily, unable to access Lyrica secondary to cost and insurance. Is using oxycodone 10 mg up to 4 times a day, with better results. Still reports pain is still limiting as far as ambulation sharp shooting and numbness impacting his ability to be active.), Severity (5/10) Tiredness/Fatigue: Moderate (4-6) Drowsiness/Sedation: Moderate (4-6) Nausea: Moderate (4-6) Depression: Moderate (4-6) Anxiety: Mild (1-3) Dyspnea: Severe (7-10) Anorexia: Moderate (4-6) Sleep: Sleep improved Constipation: No Feelings of wellbeing/Perceived Quality of Life: Fair, Acceptable Performance Status: Patient able to attend his ADLs, though his activity is limited by his pain with standing or walking it becomes worse. He is able to drive currently. I would put him a PPS of 70%. - Palliative Care Discussion: Patient describes still feeling quite depressed, isolated, and perseverating on prognostic fair. When asked what he would do differently, he would travel, and take his mother on a trip. He has many financial constraints, but feels he would follow-up with his father regarding this. He feels currently that his family does not take in the seriousness of his underlying diagnosis. He would also spend more time with his son as well as perhaps moved back down to [place]. Impression and Recommendations - Palliative Care Impression: This is a 64-year-old gentleman with metastatic colon cancer to the liver and lung. Patient continues with poorly controlled pain mostly related to his ro pheral neuropathy induced by prior chemotherapy, and ongoing progressive fatigue. He does present with some new respiratory symptoms, and has had some weight loss, though this is intentional. Palliative care to continue to provide ongoing support for pain and symptom management and anticipatory guidance Recommendations/Counseling Done: 1. Pain of neoplastic origin. Lyrica is no longer an option, given his insurance. Titration schedule written for gabapentin over the next 2 weeks, with final dosing 600 mg 3 times daily. Prescription provided for gabapentin 600 mg 1 tab every 8 hours. Patient is to contact me if this is not improving his pain, or has side effects. Introduced the possibility of starting him on methadone, as a follow-up. 2. Abdominal hernia. Patient has lost 5 pounds, he feels his ultimate goal would be 175. Positive reinforcement given, patient does report though has had some decrease in appetite as well. 3. Dyspnea. This is multifactorial in origin, patient does have new finding of some expiratory wheezing in the left lower lobe as well as some crackles. He has long-term been smoking, he reports increased smoking of at least half pack daily. Brown-tinged sputum. Denies fever chills, white count within normal limits. O2 sats within normal limits. Mostly happens when he lays flat. Patient does have pro-air, instructed to try to puffs of pro-air prior to laying down at bedtime to see if this helps. 4. Anxiety. Patient has multiple stressors, including financial. Remains quite perseverative on finding underlying prognosis, shared current information shared by oncologist. Patient does feel quite isolated, with escalating anxiety. Counseling provided weighing benefits and burdens of changing out antidepressant, and agreement which is titrate up. Sertraline titrated from 100 to 150 mg a day. Patient will contact me if increased side effects. 5. Advanced care planning. Patient's hope is to continue to have quality and quantity of life, does have a son in [place] as his D POSujatha Thorpe [phone]. Will revisit the POLST at a future visit. Gently challenged patient's priorities given he is waiting until his prognosis is 2 years or less, reviewed at this point in time he would tolerate traveling and better able to enjoy things that were "on his bucket list". Counseling provided again regarding the role of palliative care and continue with setting of rapport Time Spent: 45 minutes with greater than 50% of this done in counseling regarding pain and symptom management goals of care, anticipatory guidance, and addressing anxiety and depression.
== END 2019-04-02 11:17 | disposition home or self-care (01) ==
LOC: PC 11:16
PROVIDERS: ATTEND Nurse Practitioner Adult Health
DX: Z51.5 Encounter for palliative care (principal); G89.3 Neoplasm related pain (acute) (chronic); C34.90 Malignant neoplasm of unspecified part of unspecified bronchus or lung; C78.7 Secondary malignant neoplasm of liver and intrahepatic bile duct; C78.00 Secondary malignant neoplasm of unspecified lung; G62.2 Polyneuropathy due to other toxic agents; T45.1X5D Adverse effect of antineoplastic and immunosuppressive drugs, subsequent encounter; R06.00 Dyspnea, unspecified; F32.9 Major depressive disorder, single episode, unspecified; F41.9 Anxiety disorder, unspecified; F17.210 Nicotine dependence, cigarettes, uncomplicated; H91.90 Unspecified hearing loss, unspecified ear; R53.83 Other fatigue; Z79.51 Long term (current) use of inhaled steroids
CPT/HCPCS: 99215

== ENCOUNTER 2019-04-16 12:59 | Outpatient (CLI) | payer MEDICARE, OTHER ==
--- NOTE | 2019-04-16 17:15 | CONSULTATION NOTE ---
Palliative Care Follow Up - Referral Referring Provider: Dr. Ivonne Montano Time of Visit: 12:30-13:30 Referral setting: [facility] [place] Referral Reason: Pain on neoplastic origin/Peripheral neuropathy/Met Colon Cancer - Information Sources Records reviewed: Previous records reviewed History/Review of Systems obtained from: Patient Exam limitations: No limitations - History of Present Illness Update Brief HPI Update: This is a 64-year-old gentleman with stage IV metastatic colon cancer with mets to liver, he is currently on FOLFOX with Avastin. His last CT scan 02/28/2019 shows several small bilateral pulmonary nodules stable compared to prior, but did have some evidence of disease progression with dominant hepatic mass and new focal adenopathy. Patient has been having decrease in his CEA, yesterday's CEA was 13.8. Palliative care seen patient for management of his pain. Has been complicated as we have were wanting to trial Lyrica, now with insurance issues resolved, will mushroom picker today. He will initiate with 100 mg of Lyrica twice daily. We will check again in 1 week, and can titrate accordingly. Patient's most intense pain has been his peripheral neuropathy, reporting sharp shooting pains in his feet, exacerbated with walking, and has impacted his ability to sustain any kind of activity long-term. He also has bilateral pain in his tendons in his thumb, he is awaiting possibility of surgical intervention. Cortisone shots in the past of been ineffective. Patient does have some vague abdominal discomfort in the right upper quadrant, but this is been well controlled with his 10 mg oxycodone, he is using about 4 tabs a day. He had been titrated up on his gabapentin, but continued dosing was limited because of running out. Patient continues with high anxiety, he was unable to start the sertraline either secondary insurance issues, he will be increasing it from 100-1 50. He still fluctuates as far as intermittent panic attacks, he does use Lorazepam at that point in time, he reports only using 3-4 tabs a week. Patient also continues complain of shortness of breath, continues have intermit tent productive cough of brown sputum. He continues to smoke, today his lungs are clear without wheezes or crackles. Social History - Living Situation Living arrangement: At home Living Situation: With family Support System: He lives at home with his elderly mother, she is declining health as well. He also has a son in [place], as well as his father who is quite ill. He is fairly again isolated socially[place] Medications/Allergies - Medications Home Medications: Ambulatory Orders Medication Instructions Recorded Confirmed Atenolol 100 mg PO DAILY 03/18/17 04/16/19 Lisinopril 40 mg PO DAILY 03/18/17 04/16/19 Sertraline [Zoloft] 150 mg PO DAILY 03/18/17 04/16/19 Multivitamin [Multiple Vitamins] 1 each PO DAILY 04/24/17 04/16/19 Vitamin B Complex 1 each PO DAILY 04/24/17 04/16/19 Fexofenadine HCl 180 mg PO DAILY 07/12/17 04/16/19 Oxycodone HCl 10 mg PO Q4HR PRN MDD 5 X DAY 07/24/18 04/16/19 Ondansetron [Zofran Odt] 8 mg PO Q8H PRN 08/21/18 04/16/19 LORazepam [Lorazepam] 0.5 mg PO Q6HR PRN 12/05/18 04/16/19 Albuterol Sulfate [Proair Hfa 2 puffs INH Q4HR PRN 04/02/19 04/16/19 Inhaler] Omeprazole 20 mg PO DAILY 04/16/19 04/16/19 Pregabalin [Lyrica] 100 mg PO BID MDD 300 mg 04/16/19 04/16/19 - Allergies Allergies/Adverse Reactions: Allergies Allergy/AdvReac Type Severity Reaction Status Date / Time No Known Drug Allergies Allergy Verified 04/16/19 11:44 Review of Systems - Constitutional Constitutional: reports: Fatigue, Weight loss (185). denies: Fever, Chills - Eyes Eyes: reports: Vision loss, Corrective lenses - Ears, Nose & Throat Ears, Nose & Throat: reports: Hearing loss, Hearing aids, Nasal congestion - Cardiovascular Cardiovascular: reports: Decr. exercise tolerance (more limited by peripheral neuropathy) - Respiratory Respiratory: reports: Cough (continues to smoke;), Sputum production, SOB with exertion. denies: SOB at rest - Gastrointestinal Gastrointestinal: reports: Abdominal distention, Reflux/heartburn, Good appetite. denies: Constipation, Nausea - Musculoskeletal Musculoskeletal: reports: Stiffness, Muscle weakness - Integumentary Integumentary: reports: Dryness - Neurological Neurological: reports: General weakness - Psychiatric Psychiatric: reports: Depression, Anxiety - Hematologic/Lymphatic Hematologic/Lymphatic: denies: Recurrent infections - All Other Systems All Other Systems: reports: Reviewed and negative Physical Exam - Physical Exam General Appearance: positive: No acute distress, Alert Eyes Bilateral: positive: Normal inspection ENT: negative: Pharyngeal erythema, Oral lesions, Dry mucous membranes Neck: positive: No JVD, Trachea midline Cardiovascular: positive: Regular rate & rhythm Respiratory: positive: Diminished in bases. negative: Wheezes, Rales, Rhonchi Abdomen: positive: Soft, Nml bowel sounds, Distended (has severe hernia), Other (colostomy) Skin: positive: Dryness Extremities: positive: No pedal edema Neurologic/Psychiatric: positive: Oriented x3, Mood/affect nml Palliative Care - POLST Patient has POLST: No POLST Status: Full Code Pain: Pain unchanged, Location (see HPI) Tiredness/Fatigue: Moderate (4-6) Drowsiness/Sedation: None Nausea: None Depression: Moderate (4-6) Anxiety: Moderate (4-6) Dyspnea: Moderate (4-6) Anorexia: Mild (1-3), Weight loss (patient is hoping for decrease in weight goal 175) Sleep: Variable sleep pattern Constipation: No Feelings of wellbeing/Perceived Quality of Life: Fair, Acceptable, No change Performance Status: Patient's activity level actually impacted by his peripheral neuropathy, and difficulty walking. He does have poor activity tolerance, but is still able to drive and manage his own ADLs. - Palliative Care Discussion: Patient appears to be doing a little bit better with mood today, is feeling encouraged at the current resolution of his insurance issues. He is going to also access friends of friends to see if can assist with any co-pays. We did discuss looking at other ways to support him, introduced healing circles as possible social support, he will consider, but unclear if will follow through. Patient looking forward to his scans, and to get a better sense of where his disease status is. Patient's goals currently are to see if can qualify for surgery on his thumbs, get better pain control regarding his peripheral neuropathy, and try to stay positive in the midst of his fluctuating anxiety. Results - Lab Results Lab results reviewed: Yes Impression and Recommendations - Palliative Care Impression: This is a 64-year-old gentleman with stage IV metastatic colon cancer to liver and lung. Patient continues with poorly controlled pain mostly related to his peripheral neuropathy induced by prior chemotherapy. Patient to initiate trial of Lyrica, and titration of his sertraline to address increased anxiety. Palliative care continue provide ongoing support for pain and symptom management and anticipatory guidance. Recommendations/Counseling Done: 1. Pain of neoplastic origin. Patient did resolve insurance issue, will go ahead and trial Lyrica. Patient will start with Lyrica 100 mg twice daily, and will increase to 3 times daily next week if not effective. [facility], prescription sent to her [facility]. He still has a co-pay, will be contacting friends of friends. Prescription provided for oxycodone 10 mg tabs, patient using up to 4-day, this has little impact on his peripheral neuropathy, but does help with his abdominal pain and discomfort. Will trial Lyrica for the next month, if not effective, may consider transitioning to methadone as follow-up. 2. Abdominal hernia. Patient continues with mild weight loss, currently today continues with the goal for 175. Patient has gained weight, and feels this is worsened pressure on his hernia/colostomy. 3. Dyspnea. This is multifactorial in origin, his breath sounds have improved from baseline. Counseling provided regarding tobacco cessation, patient does often smoke out of boredom. Patient would like to decrease or quit. Counseling provided regarding strategies of slow taper. 4. Anxiety. Patient has multiple stressors, including financial. Patient is quite isolated, has not been able to initiate increase in sertraline, will mushroom picker prescriptions today. Counseling provided regarding other sources of support, and normalized feelings regarding his current situation. He is due to have scans, mid May, feels like this will help define his next set of goals. 5. Advanced care planning. Patient's D POA is his son Mohsen Thorpe [phone], who lives in [place]. Will continue to work with patient regarding goals of care, and follow-up on advanced care planning documents after next scan. Time Spent: 60 minutes with greater than 50% of this done in counseling regarding pain and symptom management and anticipatory guidance.
== END 2019-04-16 13:00 | disposition home or self-care (01) ==
LOC: PC 12:59
PROVIDERS: ATTEND Nurse Practitioner Adult Health
DX: Z51.5 Encounter for palliative care (principal); C18.9 Malignant neoplasm of colon, unspecified; C78.7 Secondary malignant neoplasm of liver and intrahepatic bile duct; C78.00 Secondary malignant neoplasm of unspecified lung; G89.3 Neoplasm related pain (acute) (chronic); K46.9 Unspecified abdominal hernia without obstruction or gangrene; R10.11 Right upper quadrant pain; G62.9 Polyneuropathy, unspecified; M79.645 Pain in left finger(s); M79.644 Pain in right finger(s); F41.9 Anxiety disorder, unspecified; R06.00 Dyspnea, unspecified; R05 Cough; F17.200 Nicotine dependence, unspecified, uncomplicated; Z93.3 Colostomy status; Z79.899 Other long term (current) drug therapy
CPT/HCPCS: 99215

== ENCOUNTER 2019-05-14 11:25 | Outpatient (CLI) | payer MEDICARE, OTHER ==
--- NOTE | 2019-05-14 12:33 | CONSULTATION NOTE ---
Palliative Care Follow Up - Referral Referring Provider: Dr Shah Time of Visit: Scotty 05/14/2019. 11:25 - 11:55 Referral setting: [facility] Referral Reason: Pain management - Information Sources Records reviewed: Previous records reviewed History/Review of Systems obtained from: Patient Exam limitations: No limitations - History of Present Illness Update Brief HPI Update: 64-year-old man with stage IV metastatic colon cancer with mets to liver and lung, currently on FOLFOX with Avastin. His last CT scan 02/28/2019 shows several small bilateral pulmonary nodules stable compared to prior, but did have some evidence of disease progression with dominant hepatic mass and new focal adenopathy. Medical history: colon cancer mets to liver and lung, on FOLFOX with Avastin; HTN; AAA; drug-induced neuropathic pain; current smoker; CKDIII; HLD; transverse colectomy with colostomy. Palliative Care has been seeing patient for pain management. His abdominal pain is controlled with oxycodone 10mg tablets which patient takes 4-5 times a day. He reports Lyrica is not working as well as he hoped. He no longer has pain in legs but has constant tingling pain on feet, particularly the medial aspect on plantar surfaces. The pain interferes with walking and he often has to lie down after exertion. We discussed increasing Lyrica or possibly switching back to gabapentin since Lyrica isn't working as well as previously. Agreed to increase dosing for now. He finds fatigue increasing, but not severely; he's better in the mornings, but his afternoons are shot. There are times he takes an afternoon nap and doesn't wake up until the next morning. His fatigue had worried his mother, with whom bernadine garza lives, but now she's adjusted and is less distressed about it. Discussed scheduling his priorities in the mornings as much as possible, "budgeting" his energy and his time. He had been pursuing having surgery done on his thumbs, he may get injections instead. Social History - Living Situation Living arrangement: At home Living Situation: With family (With mother) Support System: He lives at his elderly mother's house, who is in poor health. He moved from [facility] to [facility] about 4-5 years ago. His son lives in [place], as does his father who is quite ill. He is fairly again isolated socially, [place] Medications/Allergies - Medications Home Medications: Ambulatory Orders Medication Instructions Recorded Confirmed Atenolol 100 mg PO DAILY 03/18/17 04/30/19 Lisinopril 40 mg PO DAILY 03/18/17 04/30/19 Sertraline [Zoloft] 150 mg PO DAILY 03/18/17 04/30/19 Multivitamin [Multiple Vitamins] 1 each PO DAILY 04/24/17 04/30/19 Vitamin B Complex 1 each PO DAILY 04/24/17 04/30/19 Fexofenadine HCl 180 mg PO DAILY 07/12/17 04/30/19 Oxycodone HCl 10 mg PO Q4HR PRN MDD 5 X DAY 07/24/18 05/14/19 MAXIMUM Ondansetron [Zofran Odt] 8 mg PO Q8H PRN 08/21/18 04/30/19 Albuterol Sulfate [Proair Hfa 2 puffs INH Q4HR PRN 04/02/19 04/30/19 Inhaler] Omeprazole 20 mg PO DAILY 04/16/19 04/30/19 Pregabalin [Lyrica] 150 mg PO TID 05/14/19 05/14/19 - Allergies Allergies/Adverse Reactions: Allergies Allergy/AdvReac Type Severity Reaction Status Date / Time No Known Drug Allergies Allergy Verified 04/30/19 10:29 Review of Systems - Constitutional Constitutional: reports: Fatigue, Weight loss (183.5 lbs (83.4kg, 26.4 BMI)) - Eyes Eyes: reports: Vision loss, Corrective lenses - Ears, Nose & Throat Ears, Nose & Throat: reports: Hearing loss, Hearing aids - Cardiovascular Cardiovascular: reports: Edema, Decr. exercise tolerance (pain in feet from peripheral neuropathy) - Respiratory Respiratory: reports: Cough (active smoker), Sputum production, SOB with exertion. denies: SOB at rest - Gastrointestinal Gastrointestinal: reports: Good appetite. denies: Abdominal pain (improved with oxycodone) - Genitourinary Genitourinary: denies: Incontinence - Musculoskeletal Musculoskeletal: reports: Stiffness, Muscle weakness - Integumentary Integumentary: reports: Dryness - Neurological Neurological: reports: General weakness - Psychiatric Psychiatric: denies: Depression (excited about prospective trip to [place] with his son) - Hematologic/Lymphatic Hematologic/Lymphatic: denies: Recurrent infections - All Other Systems All Other Systems: reports: Reviewed and negative Physical Exam - Vital Signs Temperature: 96.4 F Pulse Rate: 65 O2 Saturation: 98 (room air) Blood Pressure: 145/77 (wrist cuff) - Physical Exam General Appearance: positive: No acute distress, Alert Eyes Bilateral: positive: Normal inspection ENT: positive: Oral lesions, Dry mucous membranes Neck: positive: No JVD, Trachea midline Cardiovascular: positive: Regular rate & rhythm, No murmur Respiratory: positive: Diminished in bases. negative: Wheezes, Rales, Rhonchi Skin: positive: Dryness Extremities: positive: Nml appearance, No pedal edema Neurologic/Psychiatric: positive: Oriented x3, Mood/affect nml Palliative Care - POLST Patient has POLST: No POLST Status: Full Code Pain: Pain worsening (neuropathic pain soles of feet) Tiredness/Fatigue: Moderate (4-6) Drowsiness/Sedation: Moderate (4-6) Nausea: None Depression: Mild (1-3) (excited about trip with son) Anxiety: Mild (1-3) Dyspnea: Moderate (4-6) (active smoker) Anorexia: Mild (1-3) Sleep: Variable sleep pattern Constipation: No Performance Status: Walking is curtailed due to pain Performs own ADLs Continues to drive - Palliative Care Discussion: Patient is feeling positive about a planned trip to [place] with his son to take place next week. He wants to change his appointment to accommodate this trip. Currently he receives chemotherapy every two weeks. He sounds philosophical today about his prognosis. He says he was given 4-5 years originally, which was 2-3 years ago. Then he says he was more recently told prognosis could be 7 years, so he's not worrying about it until it happens. Patient [place] 4-5 years. He says this is OK and it doesn't bother him. Impression and Recommendations - Palliative Care Impression: 64-year-old man with stage IV metastatic colon cancer to liver and lung. Patient continues to experience neuropathic pain in feet induced by prior chemotherapy. Palliative care will increase Lyrica dosing and continue to provide ongoing support for pain and symptom management. Recommendations/Counseling Done: Pain of neoplastic origin: Was started on Lyrica earlier this month after insurance issues were resolved. He started at 100mg BID, then increased to TID. Patient reports continuing pain in feet, so today we will increase Lyrica to 150 mg TID. He is considering switching back to gabapentin if Lyrica ultimately doesn't improve the pain control, or stopping neuropathic pain medication altogether if it wasn't making a difference. Did discuss that it takes several weeks for full effects, something to consider before stopping completely. Wrote refill script for oxycodone 10 mg tabs, maximum 5 per day, for his abdominal pain and discomfort. Primary Palliative [employer] had planned to trial Lyrica for the next month, and if not effective, would consider transitioning to methadone. Advance care planning: Patient is full code, with no POLST. His son/DPOA is Mohsen Thorpe [phone], in [place]. Patient has scheduled the next chemo appointment for 06/04/19 so he can take a trip with his son, starting next week. The next scans are in May and he feels that getting the scans will help define his next set of goals. Primary Palliative Care [employer] plans to follow-up on advanced care planning documents after next scan. Time Spent: 30 minutes were spent with greater than 50% of this spent in counseling, education, and coordination of care on pain and neuropathic medications.
== END 2019-05-14 11:26 | disposition home or self-care (01) ==
LOC: PC 11:25
PROVIDERS: ATTEND Nurse Practitioner
DX: Z51.5 Encounter for palliative care (principal); G89.3 Neoplasm related pain (acute) (chronic); G62.0 Drug-induced polyneuropathy; T45.1X5S Adverse effect of antineoplastic and immunosuppressive drugs, sequela; C18.9 Malignant neoplasm of colon, unspecified; C78.7 Secondary malignant neoplasm of liver and intrahepatic bile duct; C78.01 Secondary malignant neoplasm of right lung; C78.02 Secondary malignant neoplasm of left lung; R59.0 Localized enlarged lymph nodes; I12.9 Hypertensive chronic kidney disease with stage 1 through stage 4 chronic kidney disease, or unspecified chronic kidney disease; N18.3 Chronic kidney disease, stage 3 (moderate); F17.200 Nicotine dependence, unspecified, uncomplicated; Z93.3 Colostomy status; Z79.899 Other long term (current) drug therapy; Z90.49 Acquired absence of other specified parts of digestive tract; Z79.891 Long term (current) use of opiate analgesic
CPT/HCPCS: 99214

== ENCOUNTER 2019-06-20 10:09 | Outpatient (CLI) | payer MEDICARE, OTHER | END 2019-06-20 10:10 | disposition home or self-care (01) | LOC: PC 10:09 | PROVIDERS: ATTEND Nurse Practitioner Adult Health | DX: Z51.5 Encounter for palliative care (principal); C18.9 Malignant neoplasm of colon, unspecified; C78.7 Secondary malignant neoplasm of liver and intrahepatic bile duct; C78.00 Secondary malignant neoplasm of unspecified lung; G89.3 Neoplasm related pain (acute) (chronic); G62.9 Polyneuropathy, unspecified; R53.1 Weakness; F32.9 Major depressive disorder, single episode, unspecified; H54.7 Unspecified visual loss; H91.90 Unspecified hearing loss, unspecified ear; K94.09 Other complications of colostomy; Z79.891 Long term (current) use of opiate analgesic; Z79.51 Long term (current) use of inhaled steroids; Z79.899 Other long term (current) drug therapy | CPT/HCPCS: 99215 ==

== ENCOUNTER 2019-07-15 08:00 | Outpatient (CLI) | payer MEDICARE, OTHER | END 2019-07-15 08:15 | disposition home or self-care (01) | LOC: LAB.S 08:00 | PROVIDERS: ATTEND Nurse Practitioner Adult Health | DX: M10.9 Gout, unspecified (principal) | CPT/HCPCS: 36415; 84550 ==

== ENCOUNTER 2019-07-16 10:15 | Outpatient (CLI) | payer MEDICARE, OTHER ==
--- NOTE | 2019-07-16 21:18 | CONSULTATION NOTE ---
Palliative Care Follow Up - Referral Referring Provider: Dr. Nydia Zayas Time of Visit: [id number] [place] [facility] [place] Reason: Pain of neoplastic origin/Met Colon Ca with liver mets - Information Sources Records reviewed: RN notes reviewed, Previous records reviewed History/Review of Systems obtained from: Patient Exam limitations: No limitations - History of Present Illness Update Brief HPI Update: This is a 64-year-old gentleman with stage IV metastatic colon cancer with mets to liver and lung, currently on FOLFOX with Avastin. Patient's CEA has continued to decrease, he is doing fairly well overall, except for had an acute exacerbation of pain related to his gout in his right foot. With extreme piercing pain with weightbearing, has had it previously. In recall does remember now has been eating shrimp for the last 3 days, most likely the precipitating factor. He does have an elevated uric acid of 7.5. He did respond well to the colchicine, and feels like it is resolving. Patient reports his pain in his right upper abdomen, is well controlled with the intermittent oxycodone, is using anywhere from 3 to 5 tablets depending on how active he is. He has had more acute pain with his right foot and gout. His long-standing CIPN, is better controlled and tolerable with the Lyrica 150 mg TID. He has not followed through our been contacted by performance therapy, did recommend given he has done better in the past with exercise, to make contact and get started. He has developed over the last couple weeks increase in headache pain, this is intermittent and does not appear related to anything in particular. It does respond to Excedrin, we did discuss in the context of his decreased intake, if might be exacerbated by dehydration, he will make more observations regarding his headache pain. He has had no confusion, vision changes, or other neurological symptoms of concern.Patient continues to deal with multiple stressors regarding finances, transportation, but overall feels he is doing fairly well. He has had a decline in his appetite, but with no resulting weight loss. Social History - Living Situation Living arrangement: At home Living Situation: With family Support System: Patient lives at home with his mother, she is elderly, he is having to do more supportive functions in the household for her. They do get along quite well. He does have a son in [place] he states in close contact to. He has had more limited isolation with difficulty with his car, he has found transportation for his chemo appointments though. Medications/Allergies - Medications Home Medications: Ambulatory Orders Medication Instructions Recorded Confirmed Atenolol 100 mg PO DAILY 03/18/17 07/17/19 Lisinopril 40 mg PO DAILY 03/18/17 07/17/19 Sertraline [Zoloft] 150 mg PO DAILY 03/18/17 07/17/19 Multivitamin [Multiple Vitamins] 1 each PO DAILY 04/24/17 07/17/19 Vitamin B Complex 1 each PO DAILY 04/24/17 07/17/19 Fexofenadine HCl 180 mg PO DAILY 07/12/17 07/17/19 Oxycodone HCl 10 mg PO Q4HR PRN MDD 5 X DAY 07/24/18 07/17/19 MAXIMUM Ondansetron [Zofran Odt] 8 mg PO Q8H PRN 08/21/18 07/17/19 Albuterol Sulfate [Proair Hfa 2 puffs INH Q4HR PRN 04/02/19 07/17/19 Inhaler] Omeprazole 20 mg PO DAILY 04/16/19 07/17/19 Pregabalin [Lyrica] 150 mg PO TID 05/14/19 07/17/19 LORazepam [Ativan] 0.5 mg PO Q8HR PRN 07/17/19 07/17/19 - Allergies Allergies/Adverse Reactions: Allergies Allergy/AdvReac Type Severity Reaction Status Date / Time No Known Drug Allergies Allergy Verified 05/28/19 13:41 Review of Systems - Constitutional Constitutional: reports: Fatigue, Poor appetite, Weight stable. denies: Fever - Eyes Eyes: reports: Vision loss, Corrective lenses (needs adjusting; pending eye doctor visit) - Ears, Nose & Throat Ears, Nose & Throat: reports: Hearing loss, Hearing aids, Nasal congestion, Dry mouth - Cardiovascular Cardiovascular: reports: Decr. exercise tolerance. denies: Chest pain, Edema - Respiratory Respiratory: reports: Cough, Sputum production (yellow to brown), SOB with exertion, Other (continues to smoke). denies: SOB at rest - Gastrointestinal Gastrointestinal: reports: Early satiety, Other (colostomy; liquid/soft c onsistency; abdominal hernia). denies: Abdominal pain, Nausea - Musculoskeletal Musculoskeletal: reports: Stiffness, Limited range of motion, Muscle weakness, J oint pain (new foot pain attributed to gout) - Integumentary Integumentary: reports: Dryness - Neurological Neurological: reports: General weakness, Headache (new this last few weeks; intermittent; using occasional excedrin with relief), Abnormal gait (related to neuropathy) - Psychiatric Psychiatric: reports: Depression (controlled), Anxiety - Hematologic/Lymphatic Hematologic/Lymphatic: denies: Recurrent infections - All Other Systems All Other Systems: reports: Reviewed and negative Physical Exam - Physical Exam General Appearance: positive: No acute distress, Alert Eyes Bilateral: positive: Normal inspection ENT: positive: No signs of dehydration. negative: Pharyngeal erythema Neck: positive: No JVD, Trachea midline Cardiovascular: positive: Regular rate & rhythm Respiratory: positive: No respiratory distress, Breath sounds nml, Diminished in bases. negative: Wheezes, Rales, Rhonchi Abdomen: positive: Non-tender, Soft, Nml bowel sounds, Distended, Other (abdominal hernia) Skin: positive: Pallor, Dryness Extremities: positive: No pedal edema Neurologic/Psychiatric: positive: Oriented x3, Mood/affect nml Palliative Care - POLST Patient has POLST: No POLST Status: Full Code Pain: Severity (7/10), Comment (see HPI, Abdominal pain improved, CIPN managed with lyrica; acute pain of right foot with gout improving but not resolved) Tiredness/Fatigue: Severe (7-10) Drowsiness/Sedation: Severe (7-10) Nausea: Mild (1-3) Depression: Mild (1-3) Anxiety: Mild (1-3) Dyspnea: Moderate (4-6) Anorexia: Mild (1-3) Sleep: Variable sleep pattern Constipation: No Feelings of wellbeing/Perceived Quality of Life: Fair Performance Status: Patient limited in his ambulation the last few days because of his acute pain from his gout in his right foot. He is trying to black pickler his activity though previous to this, has gotten new boots, has been encouraged to follow through on his physical therapy and increased walking. Patient is able to manage his own ADLs. He has though been impacted by activity intolerance and fatigue - Palliative Care Discussion: Patient continues to hope for the best, continue to focus on quality of life issues. Still wondering about prognosis, though at this point in time does not feel he would make any other adjustments to his current living situation. His father is doing poorly, is looking at going down for another visit. Continues to struggle with financial stressors. Feels like he is doing fairly well overall, but has fluctuating mood at times. Results - Lab Results Lab results reviewed: Yes Impression and Recommendations - Palliative Care Impression: This is a 64-year-old gentleman with stage IV metastatic colon cancer to the liver and lung, who has chemotherapy-induced peripheral neuropathy, currently managed with Lyrica. He does have intermittent abdominal pain is right upper quadrant correlating with his liver mets, and abdominal hernia as well as presents today with acute pain secondary to his gout in his right foot.Palliative care continue to follow for pain and symptom management and quality of life issues. Recommendations/Counseling Done: 1. Pain of neoplastic origin, with multiple pain generators. Patient is currently on Lyrica 150 mg 3 times daily, for management of his lower extremity neuropathic pain. He also is taking oxycodone 10 mg has increased this over the last several days secondary to his acute gout pain. Patient has not followed through on physical therapy, but has gotten a new supportive boots. Patient does not require any changes to his current regimen. 2. Depression. Patient feels like despite his fluctuating mood at times, is doing well with his underlying depression. He does have quite a few financials and psychosocial stressors, he still continues with some intermittent anxiety. Uses the lorazepam only 1 or 2 times a month with good results if he gets "panicky. Patient has been encouraged to cut down or quit his smoking. 3. Gout. Patient with elevated uric acid, now with second round of gout. Does feel "crunchy" in his feet. Patient treated acutely with colchicine with some improvement, will go ahead and do 0.6 mg daily for two weeks, if renal function remains adequate, will put on allopurinol for prevention. 4. Advanced care planning. Patient's D POA is his son Mohesn Thorpe [phone] who lives in [place]. Patient's goals are to remain as independent as possible, continue with his treatment regimen, and is hoping to have some time, money, and energy to travel in the near future. Time Spent: 45 minutes with greater than 50% of this done in counseling regarding pain and symptom management, management of gout, and anticipatory guidance.
== END 2019-07-16 10:16 | disposition home or self-care (01) ==
LOC: PC 10:15
PROVIDERS: ATTEND Nurse Practitioner Adult Health
DX: Z51.5 Encounter for palliative care (principal); C18.9 Malignant neoplasm of colon, unspecified; C78.7 Secondary malignant neoplasm of liver and intrahepatic bile duct; C78.00 Secondary malignant neoplasm of unspecified lung; G62.0 Drug-induced polyneuropathy; T45.1X5A Adverse effect of antineoplastic and immunosuppressive drugs, initial encounter; G89.3 Neoplasm related pain (acute) (chronic); M10.9 Gout, unspecified; R51 Headache; F32.9 Major depressive disorder, single episode, unspecified; H54.7 Unspecified visual loss; H91.90 Unspecified hearing loss, unspecified ear; Z79.891 Long term (current) use of opiate analgesic; Z79.51 Long term (current) use of inhaled steroids
CPT/HCPCS: 99215

== ENCOUNTER 2019-08-13 10:40 | Outpatient (CLI) | payer MEDICARE, OTHER ==
--- NOTE | 2019-08-13 18:24 | CONSULTATION NOTE ---
Palliative Care Follow Up - Referral Referring Provider: Dr. Nydia Zayas Time of Visit: [id number] [place] [facility] [place] Reason: Pain of neoplastic origin/Met Colon Ca/Goals of Care - Information Sources Records reviewed: Previous records reviewed History/Review of Systems obtained from: Patient, Family (mother present) Exam limitations: No limitations - History of Present Illness Update Brief HPI Update: This is a 64-year-old gentleman with stage IV metastatic colon cancer with mets to liver and lung, currently on FOLFOX and Avastin every 2 weeks. He is starting to have some cumulative fatigue, has managed his CIPN, with Lyrica 150 mg TID, But this is his most limiting factor as far as ambulation and discomfort. He has also developed persistent headaches, they occur about 1 sometimes 2 times a day, across the top of his head. Have increased from just few times a week to daily, are not related to his ondansetron use, though he does have low-grade nausea. He denies any vision changes, balance changes or other confusion. It does respond to intermittent use of Excedrin, but does often need to take a nap. Patient does admit to poor fluid intake, may have dehydration contributing. If pain persists, will follow up with oncology if want any imaging. Patient to call if they become more intense or more persistent, for further follow-up. Patient reports his right upper quadrant pain is well controlled with intermittent use of oxycodone, he uses anywhere from 3-5 tabs depending on how active visits. His acute gout pain has resolved, though he does present with some superficial thrombophlebitis on his left ankle. There is no redness or heat, it is tender to palpation, does not report remember any trauma, has had ankle injury in the area before with mild swelling. Patient overall is doing fairly well, his mother wanted to attend and have an idea about what was going on, and how best to support him. She does see him less active, more fatigued, and worried about his fluctuating days. We did engage in a goals of care conversation today, we did complete the POLST, as a DNA R and selective treatment. Patient's biggest concern is his prognosis, he very much wants to know at what point he has 2 years of left to live, as he will reset his goals. His mother is quite frail, "they take care of each other". Patient does have quite a few financial stressors, is open to having the medical palliative care director social service meet with him and his mom. Social History - Living Situation Living arrangement: At home Living Situation: With family Support System: This with mother who is 86 years old, is quite frail herself. She does present with concerns about how best to support her son and his ongoing health issues. She is hoping for better understanding. [place] to [place]. Mother expresses sadness as there is some estrangement, patient's father is in [place] and his health is poor as well. Patient has multiple financial stressors, and known underlying depression and anxiety. Medications/Allergies - Medications Home Medications: Ambulatory Orders Medication Instructions Recorded Confirmed Atenolol 100 mg PO DAILY 03/18/17 07/30/19 Lisinopril 40 mg PO DAILY 03/18/17 07/30/19 Sertraline [Zoloft] 150 mg PO DAILY 03/18/17 07/30/19 Multivitamin [Multiple Vitamins] 1 each PO DAILY 04/24/17 07/30/19 Vitamin B Complex 1 each PO DAILY 04/24/17 07/30/19 Fexofenadine HCl 180 mg PO DAILY 07/12/17 07/30/19 Oxycodone HCl 10 mg PO Q4HR PRN MDD 5 X DAY 07/24/18 07/30/19 MAXIMUM Ondansetron [Zofran Odt] 8 mg PO Q8H PRN 08/21/18 07/30/19 Albuterol Sulfate [Proair Hfa 2 puffs INH Q4HR PRN 04/02/19 07/30/19 Inhaler] Omeprazole 20 mg PO DAILY 04/16/19 07/30/19 Pregabalin [Lyrica] 150 mg PO TID 05/14/19 07/30/19 - Allergies Allergies/Adverse Reactions: Allergies Allergy/AdvReac Type Severity Reaction Status Date / Time No Known Drug Allergies Allergy Verified 07/30/19 09:59 Review of Systems - Constitutional Constitutional: reports: Fatigue, Weight stable (184). denies: Fever, Chills - Eyes Eyes: reports: Vision loss, Corrective lenses - Ears, Nose & Throat Ears, Nose & Throat: reports: Hearing loss, Hearing aids, Nasal congestion - Cardiovascular Cardiovascular: reports: Decr. exercise tolerance. denies: Chest pain - Respiratory Respiratory: reports: Cough, Sputum production (productive), Wheezing (brown sputum in AM/ continues to smoke), SOB with exertion. denies: SOB at rest - Gastrointestinal Gastrointestinal: reports: Abdominal distention, Nausea (at least daily), Reflux/heartburn, Bloating, Early satiety. denies: Abdominal pain - Musculoskeletal Musculoskeletal: reports: Stiffness, Muscle weakness - Integumentary Integumentary: reports: Dryness, Other (pain at left ankle; palpalble firm area along venous area 1 x 2 cm; no redness or warmth; some venous congestion in area; old area of injury) - Neurological Neurological: reports: General weakness - Psychiatric Psychiatric: reports: Depression, Anxiety - Endocrine Endocrine: reports: Intolerance to cold (after treatment about 3 days) - Hematologic/Lymphatic Hematologic/Lymphatic: reports: Anemia. denies: Recurrent infections - All Other Systems All Other Systems: reports: Reviewed and negative Physical Exam - Vital Signs Temperature: 36.8 C Pulse Rate: 54 Respiratory Rate: 18 Blood Pressure: 134/79 - Physical Exam General Appearance: positive: No acute distress, Alert Eyes Bilateral: positive: Normal inspection ENT: negative: Oral lesions Neck: positive: No JVD, Trachea midline Respiratory: positive: No respiratory distress, Diminished in bases. negative: Wheezes Abdomen: positive: Soft, Nml bowel sounds, Distended, Other (large abdominal hernia; patient feels more distended) Skin: positive: Pallor, Dryness Extremities: positive: Full ROM, Pedal edema (slight swelling left leg-baseline from previous injury has not been wearing support hose) Neurologic/Psychiatric: positive: Oriented x3, Mood/affect nml Palliative Care - POLST Patient has POLST: Yes POLST Status: DNR, Selective Treatment (completed today at visit;) Pain: Pain unchanged, Location (abdominal RUQ controlled with oxycodone 10 mg 3- 4 tabs daily; LE neuropathy-worsens with ambulation and increasing in severeity- some relief with lyrica), Severity (3/10), Comment (headache pain most problematic; not managed with oxycodone uses ASA and rest) Tiredness/Fatigue: Moderate (4-6) Drowsiness/Sedation: Moderate (4-6) Nausea: None Depression: Mild (1-3) Anxiety: None Dyspnea: Moderate (4-6) Anorexia: Moderate (4-6) Sleep: Variable sleep pattern Constipation: No, Comment (has colostomy with liquid stool) Feelings of wellbeing/Perceived Quality of Life: Good, Acceptable Performance Status: Patient has had decreased activity level, some of this is impacted by his lower extremity neuropathy and also his intermittent headache pains. He is having more fatigue, does know he does better with ambulation, has not followed through and is declined further referral to physical therapy.Is able to manage his own ADLs - Palliative Care Discussion: Met with his mother first, Hodan Luong. She is a theodore 86-year-old woman, who is quite forgiving and wanting to be supporting her son. Is wanting to better understand his diagnosis and how best to support him, as he has had some persistent fatigue. She worries about how much to push him to get up and going, she also share some family dynamics and concerns. Patient does have significant financial stressors, as well as high anxiety. She is interested both for herself and son in meeting with the medical palliative care director social service. Met with patient and mother together, we discussed current concerns, patient does have Wang BILLINGSLEY who is his son Mohsen Thorpe [phone]. Reports they have had end-of-life conversations including with his mother, she he does feel like she knows what he would want not want. They have talked about cremation and disposition of this remains. He reports he does have a POLST, we reviewed that this was not on record and agreed to walk through it today. His goals are to focus on quality of life, treat reversible conditions and the end of life he would do have to have a comfortable respectful if possible at home. He does not quite sure where home will be at that point in time. He has some things that if he knew his life was more limited within a 2-year range, he would want to do some things on his bucket list. He is due for restaging scans in September, discussed that would be a good point to revisit prognosis with oncology and expectations. He is experiencing more side effects and cumulative side effects from his therapies, as well as feeling some treatment fatigue.POLST was completed with DNA R, selective treatments, use antibiotics for prolongation of life, and no medically assisted nutrition by tube. Results - Lab Results Lab results reviewed: Yes Impression and Recommendations - Palliative Care Impression: This is a 64-year-old gentleman with stage IV metastatic colon cancer to the liver and lung, who has chemotherapy-induced peripheral neuropathy currently managed moderately well with Lyrica. Patient's persistent and most impactful quality of life issue, has been his increasing intermittent headaches, no other neurological signs, patient does admit to poor fluid intake. He does respond to Excedrin, but does find himself taking more rest. He also is having more persistent fatigue. Palliative care providing support for pain and symptom management and ongoing discussions regarding advanced care planning. Recommendations/Counseling Done: 1. Headaches. These are multifactorial in origin, patient does not not feel they are related to his ondansetron use, though he is using this daily for low- grade nausea. He is using Excedrin intermittently, but headaches have persisted to daily. We will follow-up with oncology team if want to do further imaging, patient this point does not have any acute neurological changes other than the pain and discomfort. In these last for 45 minutes to a couple hours. Patient is going to increase his fluid intake, observe if related to it all to his ondansetron, and call if they increase in intensity or has any other neurological changes. 2.Left venous phelebitis. Is a small palpable area, it is tender on evaluation, but no redness or warmth. No significant swelling patient has low-grade edema in this area secondary to a left ankle injury. Instructed to use heat, wear his support hose, and watch for any further signs of swelling, redness, warmth or increase in pain. Verbalized understanding. 3. Gout. Patient did not to the colchicine x2 weeks as insurance would not pay. He does report his symptoms in his right foot have resolved. He would like a prescription if it recurs, as it was effective intervention for 3 tabs of colchchine. review and counseled on use. 4. Chemotherapy-induced peripheral neuropathy. This continues to be persistent, there may be some worsening as far as functional status impacted by pain. Has been instructed to try and be more active, short distances more frequently. Does not want further pursue physical therapy. He does find spending time in hot tub helpful, when he was in [place]. 5. Fatigue. This is multifactorial in origin. Patient is expressing both emotional and physical fatigue with his persistent ongoing treatment. Patient has had some decrease in his appetite, though no weight loss. Instructed again to increase activity to tolerance of both pain and endurance. 6. Cough. Patient has had ongoing intermittent cough with productive of brown sputum. This is not increased or decreased, intermittently uses his inhaler. Denies any changes in baseline shortness of breath, does have some deconditioning. No fever or chills, or changes in breath sounds. Patient does have known lung mets. 7. Advanced care planning. Discussion with both mother and patient regarding patient's goals of care, completed POLST. Counseling provided regarding the role of the medical palliative care director social service Derian, will have him make contact and provide counseling, support, exploration of family issues, as well as address financial stressors. Patient due for restaging scans in September, would be helpful to follow-up and have information available for patient regarding prognosis is best as possible. Time Spent: 45 minutes with greater than 50% of this done in counseling regarding goals of care, counseling regarding tooth disease process and expectations, symptom management, and anticipatory guidance
== END 2019-08-13 10:41 | disposition home or self-care (01) ==
LOC: PC 10:40
PROVIDERS: ATTEND Nurse Practitioner Adult Health
DX: Z51.5 Encounter for palliative care (principal); C18.9 Malignant neoplasm of colon, unspecified; C78.7 Secondary malignant neoplasm of liver and intrahepatic bile duct; C78.00 Secondary malignant neoplasm of unspecified lung; R53.83 Other fatigue; M10.9 Gout, unspecified; I80.02 Phlebitis and thrombophlebitis of superficial vessels of left lower extremity; F32.9 Major depressive disorder, single episode, unspecified; F41.9 Anxiety disorder, unspecified; H54.7 Unspecified visual loss; H91.90 Unspecified hearing loss, unspecified ear; G62.0 Drug-induced polyneuropathy; T45.1X5D Adverse effect of antineoplastic and immunosuppressive drugs, subsequent encounter; R51 Headache; R05 Cough; Z79.51 Long term (current) use of inhaled steroids; Z79.891 Long term (current) use of opiate analgesic
CPT/HCPCS: 99215

== ENCOUNTER 2019-08-29 13:44 | Outpatient (CLI) | payer MEDICARE, OTHER ==
--- NOTE | 2019-08-29 15:34 | Ultrasound Report ---
Reason: COLON CA Procedure Date: 08/29/2019 Accession Number: [id number] / [id number] Procedure: US - Duplex Ext Veins Left CPT Code: Addended Final Report FULL RESULT: EXAM: LEFT LOWER EXTREMITY VENOUS ULTRASOUND. EXAM DATE: 08/29/2019 02:50 PM. CLINICAL HISTORY: Colon cancer. COMPARISON: None. TECHNIQUE: Real-time sonographic vascular imaging was performed by the extrusion utility worker through the lower extremity utilizing both color-flow and Doppler spectral analysis. Multiple guest service representative static images were saved for review. FINDINGS: Common Femoral Vein (CFV): Normal. CFV-GSV Junction: Normal. Profunda Femoral Vein (PFV): Normal. Femoral Vein (FV) Prox: Normal. Femoral Vein (FV) Mid: Normal. Femoral Vein (FV) Dist: Normal. Popliteal Vein: Normal. Posterior Tibial Veins: Normal. Peroneal Veins: Normal. Contralateral Side CFV: Normal. Greater saphenous vein shows occlusive thrombus throughout its course. Other: None. IMPRESSION: No evidence for deep venous thrombosis. Greater saphenous vein (superficial vein), shows occlusive thrombus throughout its course. [facility] The call report notification system was initiated by Dr. Vaughn Kaplan at 03:31 PM on 08/29/2019. ADDENDUM: 08/29/19 16:00 The above call report findings were discussed with Charge Nurse by Dr. Vaughn Kaplan at 04:00 PM on 08/29/2019.
== END 2019-08-29 13:45 | disposition home or self-care (01) ==
LOC: DI 13:44
PROVIDERS: ATTEND Internal Medicine Hematology & Oncology
DX: I82.812 Embolism and thrombosis of superficial veins of left lower extremity (principal)

== ENCOUNTER 2019-08-29 17:23 | Outpatient (CLI) | payer MEDICARE | END 2019-08-29 17:24 | disposition short-term general hospital (02) | LOC: EMS 17:23 | PROVIDERS: ATTEND Surgery | DX: M79.652 Pain in left thigh (principal) | CPT/HCPCS: A0425; A0429 ==

== ENCOUNTER 2019-09-09 12:55 | Outpatient (CLI) | payer MEDICARE, OTHER | END 2019-09-09 23:59 | disposition home or self-care (01) | LOC: LAB.S 12:55 | PROVIDERS: ATTEND Internal Medicine | DX: I26.99 Other pulmonary embolism without acute cor pulmonale (principal) | CPT/HCPCS: 85610 ==

== ENCOUNTER 2019-09-10 08:57 | Outpatient (CLI) | payer MEDICARE, OTHER ==
--- NOTE | 2019-09-10 11:29 | CONSULTATION NOTE ---
Palliative Care Follow Up - Referral Referring Provider: Dr. Nydia Zayas Time of Visit: Ref[place] setting[place] [facility] [place] Reason: Pain of neoplastic origin/DVT & PE/Met Colon Ca with liver mets - Information Sources Records reviewed: Previous records reviewed History/Review of Systems obtained from: Patient Exam limitations: No limitations - History of Present Illness Update Brief HPI Update: This is a 64-year-old gentleman with stage IV metastatic colon cancer with mets to liver and lung, currently on FOLFOX and Avastin every 2 weeks. He was recently presented on 08/27 to oncologist, with left inner thigh pain and swelling, and ultrasound was ordered urgently. Unfortunately did not have this done until 08/29, it did show no evidence for deep vein thrombosis, but the greater saphenous vein showed occlusive thrombus through its course, and was to start on Lovenox. When the nurse called to give him instructions, he was having increased shortness of breath, progressive pain, and he called 911. He went to [facility], where he was admitted 08/29 and discharged 08/31 2019. He did have a CT of the lung, that showed his pleura with patchy groundglass infiltrates on his left lobe, and multiple PEs through all lower lobes, as well as his ascending aortic aneurysm. He was placed on Lovenox, was given teaching how to give the shots himself, and has had progressive improvement in his leg pain and shortness of breath. He did see his PCP Dr. Vásquez year on Monday, who had converted him then to warfarin, patient took his last dose of Lovenox yesterday. Patient also presenting with increased side effects and pain, which attributed to his oxaliplatin. He reports the pain is tolerable, has been better on the Lyrica, but has had worsening numbness and equilibrium. He is more unsteady in his feet, and does have difficulty even when getting from sitting to standing to center himself. This is been progressive, and more pronounced over the last couple weeks. He is managed with a combination of oxycodone 10 mg tablets usually takes 2 in the AM, and depending on how active he is up to 6 tabs during the day. He reports his sleep pattern has been messed up since he has been home, he has had increased back pain, but attributes this to spending more time in bed. His other pronounced and progressive symptom has been his fatigue, he is finding himself more tired, with less energy, discussed may also be some persistent depressive symptoms. Social History - Living Situation Living arrangement: At home (Patient lives with his elderly mother, he is quite concerned about him, he has 2 sisters who are supportive and one who is not so much. His father is in frail health, and he has multiple financial stressors.) Living Situation: With family Medications/Allergies - Medications Home Medications: Ambulatory Orders Medication Instructions Recorded Confirmed Atenolol 100 mg PO DAILY 03/18/17 09/10/19 Lisinopril 40 mg PO DAILY 03/18/17 09/10/19 Sertraline [Zoloft] 150 mg PO DAILY 03/18/17 09/10/19 Multivitamin [Multiple Vitamins] 1 each PO DAILY 04/24/17 09/10/19 Vitamin B Complex 1 each PO DAILY 04/24/17 09/10/19 Fexofenadine HCl 180 mg PO DAILY 07/12/17 09/10/19 Oxycodone HCl 10 mg PO Q4HR PRN MDD 6 X DAY 07/24/18 09/10/19 MAXIMUM Ondansetron [Zofran Odt] 8 mg PO Q8H PRN 08/21/18 09/10/19 Albuterol Sulfate [Proair Hfa 2 puffs INH Q4HR PRN 04/02/19 09/10/19 Inhaler] Omeprazole 20 mg PO DAILY 04/16/19 09/10/19 Pregabalin [Lyrica] 150 mg PO TID 05/14/19 09/10/19 Warfarin [Coumadin] 5 mg ORAL DAILY 08/30/19 09/10/19 Promethazine [Phenergan] 25 mg PO Q6HR PRN 09/10/19 09/10/19 - Allergies Allergies/Adverse Reactions: Allergies Allergy/AdvReac Type Severity Reaction Status Date / Time No Known Drug Allergies Allergy Verified 08/27/19 11:40 Review of Systems - Constitutional Constitutional: reports: Fatigue (worsening attributes to poor sleep as well), Weakness, Weight stable - Eyes Eyes: reports: Vision loss, Corrective lenses - Ears, Nose & Throat Ears, Nose & Throat: reports: Hearing loss, Hearing aids, Hoarseness, Dry mouth - Cardiovascular Cardiovascular: reports: Exertional dyspnea, Decr. exercise tolerance. denies: Chest pain (resolved) - Respiratory Respiratory: reports: Cough, Sputum production (thick sputum/brown flecks somewhat worse than baseline), SOB at rest (improved over last few days), SOB with exertion, Pleuritic pain (improved) - Gastrointestinal Gastrointestinal: reports: Abdominal distention (related to hernia), Nausea (fleeting and intermittent; worse day or two after treatment), Bloating, Early satiety, Other (taste changes). denies: Constipation, Reflux/heartburn - Genitourinary Genitourinary: reports: Frequency - Musculoskeletal Musculoskeletal: reports: Back pain (worsened with laying in bed more), Stiffness, Muscle weakness. denies: Gout - Integumentary Integumentary: reports: Dryness, Other (bruising with recent lovenox injections) - Neurological Neurological: reports: General weakness, Abnormal gait (worsening balance/equilibrium pain better but numbness worsening), Incoordination (no falls). denies: Headache (improved) - Psychiatric Psychiatric: reports: Depression (feeling somewhat overwhelmed with ongoing stressors; symptoms), Anxiety - Hematologic/Lymphatic Hematologic/Lymphatic: reports: Anemia, Blood clots (new dx of PE and DVT left vein) - All Other Systems All Other Systems: reports: Reviewed and negative Physical Exam - Vital Signs Temperature: 36.5 C Pulse Rate: 73 Respiratory Rate: 18 O2 Saturation: 94 (ra @ rest) Blood Pressure: 120/81 - Physical Exam General Appearance: positive: Mild distress, Anxious Eyes Bilateral: positive: Normal inspection ENT: positive: No signs of dehydration. negative: Pharyngeal erythema, Dry mucous membranes Neck: positive: Trachea midline Cardiovascular: positive: Regular rate & rhythm Respiratory: positive: No respiratory distress, Diminished in bases. negative: Wheezes, Rales, Rhonchi Abdomen: positive: Soft, Distended (abdominal hernia), Other (colostomy) Skin: positive: Pallor, Dryness Extremities: positive: No pedal edema, Other (left upper thigh with continued swelling; tender and palpable vein along inside; discolored) Neurologic/Psychiatric: positive: Oriented x3, Depressed mood/affect, Flat affect, Other (gait and balance worsening) Palliative Care - POLST Patient has POLST: Yes POLST Status: DNR, Selective Treatment Pain: Location (acute pain of left leg improving; mangle tender but not needing extra pain medication; baseline peripheral neuropathy with lyrica not much change though sensation of numbness and tingling worsening; using 2 oxycodone 10 mg in am; then as needed through day; pain worse on getting up; and with activity), Severity (6/10) Tiredness/Fatigue: Severe (7-10) (severe last few days) Drowsiness/Sedation: Severe (7-10) Nausea: None (feels ondansetron not working; intermittent) Anorexia: Mild (1-3) (attributes to taste changes as well) Dyspnea: Mild (1-3) Depression: Mild (1-3) Anxiety: Mild (1-3) Feelings of wellbeing/Perceived Quality of Life: Fair, Worsening Sleep: Sleeps poorly, Variable sleep pattern Constipation: No Performance Status: Patient having increased difficulty with walking with numbness, and increased pain overall. He is reporting balance issues and has been more sedentary. He has not followed through on physical therapy, is willing to have me send another referral. - Palliative Care Discussion: Patient is feeling more vulnerable with his most recent stay in the hospital, we did discuss in the context of the complexity of living with a cancer diagnosis that there can be complications specific to the cancer, and this is not an uncommon one. He does have on his "bucket list" wanting to go to [place], to take his mom and son. He is very insistent that when we know his prognosis is getting to 2 years or less, he would like to have that information to be able to plan and execute his wishes. We did discuss in the context of the unknown, would recommend he move forward on his plans. He has had conversations with the oncologist about the "what next", including possibly a drug holiday and a break to be able to do some traveling. He has had a good response his CEA continues to drop on 08/27 it was 2.9.Patient does have his POLST in place with DNA R and selective treatments, his son is his D JOSE CRUZ Connolly Maurilio [phone] Results - Lab Results Lab results reviewed: Yes Impression and Recommendations - Palliative Care Impression: This is a 64-year-old gentleman with stage IV metastatic colon cancer with mets to liver and lung, his chemotherapy-induced peripheral neuropathy is currently worsening, attributed to the oxaliplatin. He is having increased balance issues, increased numbness, and has led to increased sedentary lifestyle. Patient is having also more persistent fatigue. He also has presented now acutely with PEs, there is some question as far as whether to continue the Love nox versus the warfarin. I do have a call out to his PCP. Patient continues to want to focus on quality of life issues, is feeling somewhat discouraged and vulnerable with his most recent complication of his cancer and increased symptom burden. Palliative care continue to follow for pain and symptom management and anticipatory guidance. Recommendations/Counseling Done: 1. Headaches. He reports these have improved, he is only having these maybe once a week, he has ondansetron is not perceive it effective. He does use Excedrin intermittently and is trying to improve his fluid intake. 2. PEs. Patient hospitalized recently and started on Lovenox regarding his PEs and clot in his left saphenous vein. He saw his PCP on Monday who started him on warfarin, and follow-up with oncologist, unless there was specific rationale would recommend as a standard of care to continue Lovenox in the setting of malignancy vs warfarin. His shortness of breath and his pain in his left leg is improving, he still remains with significant fatigue. Agreed would follow up with PCP regarding treatment plan 3. Chemotherapy-induced peripheral neuropathy. This continues to be persistent, and patient perceives is worsening particularly in the area of numbness, balance, and fluctuating pain levels. The Lyrica has helped with his overall pain, but has continued to increase, despite the addition of oxycodone on a more regular basis. We will follow-up with oncology, would attribute it most likely to his oxaliplatin. He has been on for a long extended period of time. 4. Fatigue. This is multifactorial in origin. Patient is expressing both emotional and physical fatigue with his persistent treatment. He may also have some persistent depressive feelings. He is willing to meet with the palliative care mental health social worker, referral completed and report given. He is also willing to pursue again physical therapy, does admit his sedentary lifestyle is most likely adding to his back pain. Prescription sent off again to would be performance physical therapy, but he had not heard back from them last time. 5. Cough. Patient has ongoing intermittent cough with production of brown speckled sputum. He reports it is a little bit thicker, his shortness of breath had worsened with his diagnosis of PE, this is improving. He is not hypoxic, he does have decreased breath sounds in his right lower lobe, he is continue to try to cut down on smoking. 6. Pain of neoplastic origin. Patient at this point reports his peripheral neuropathy pain is worse than his abdominal pain. He is using the oxycodone appropriately, new Rx provided. 7. Advanced care planning. Patient quite anxious to get restaging scans done, very much wants to work on his "bucket list". Patient has been encouraged to pursue the sooner than later, given complications that can arise, as well as one would expect with progressive disease decline in functional status. Reported sooner particularly regarding travel is recommended versus waiting. He will continue to consider wearing those benefits of burdens moving forward. ADDENDUM: Follow up with Dr. Shah, feels adequate to continue warfarin, will defer to patient preference. Spoke with patient in follow up, will continue the warfarin, having trouble with bruising and the shots, will give it a try unless otherwise indicated medically. PCP to monitor and follow protimes. Time Spent: 45 minutes with greater than 50% of this done in counseling regarding new diagnosis, pain and symptom management, anticipatory guidance, and psychosocial support.
== END 2019-09-10 08:58 | disposition home or self-care (01) ==
LOC: PC 08:57
PROVIDERS: ATTEND Nurse Practitioner Adult Health
DX: Z51.5 Encounter for palliative care (principal); G89.3 Neoplasm related pain (acute) (chronic); I82.812 Embolism and thrombosis of superficial veins of left lower extremity; I26.99 Other pulmonary embolism without acute cor pulmonale; R53.83 Other fatigue; R51 Headache; G62.0 Drug-induced polyneuropathy; T45.1X5D Adverse effect of antineoplastic and immunosuppressive drugs, subsequent encounter; R05 Cough; C18.9 Malignant neoplasm of colon, unspecified; C78.00 Secondary malignant neoplasm of unspecified lung; C79.51 Secondary malignant neoplasm of bone; Z79.01 Long term (current) use of anticoagulants; Z79.899 Other long term (current) drug therapy; Z79.891 Long term (current) use of opiate analgesic; Z66 Do not resuscitate
CPT/HCPCS: 99215

== ENCOUNTER 2019-09-13 12:27 | Outpatient (CLI) | payer MEDICARE | END 2019-09-13 23:59 | disposition home or self-care (01) | LOC: LAB.S 12:27 | PROVIDERS: ATTEND Internal Medicine | DX: I26.99 Other pulmonary embolism without acute cor pulmonale (principal) | CPT/HCPCS: 85610 ==

== ENCOUNTER 2019-09-24 16:59 | Outpatient (CLI) | payer MEDICARE | END 2019-09-24 17:00 | disposition EMS.NT | LOC: EMS 16:59 | PROVIDERS: ATTEND Surgery | DX: R46.89 Other symptoms and signs involving appearance and behavior (principal); R32 Unspecified urinary incontinence ==

== ENCOUNTER 2019-10-09 18:23 | Outpatient (CLI) | payer MEDICARE | END 2019-10-09 18:24 | disposition critical access hospital (66) | LOC: EMS 18:23 | PROVIDERS: ATTEND Surgery | DX: R53.1 Weakness (principal); R11.0 Nausea; M54.9 Dorsalgia, unspecified; G89.29 Other chronic pain; R26.89 Other abnormalities of gait and mobility; R50.9 Fever, unspecified; Z93.3 Colostomy status; Z95.828 Presence of other vascular implants and grafts | CPT/HCPCS: A0425; A0427 ==

== ENCOUNTER 2019-10-09 18:59 | Emergency (ER) | payer MEDICARE ==
--- NOTE | 2019-10-09 19:18 | ED Physician Documentation ---
History of Present Illness - Stated complaint Stated Complaint: WEAKNESS, LETHARGY, CHEMO - Chief complaint Chief Complaint: General - History obtained from History obtained from: EMS - History of Present Illness Timing: Today (84-year-old gentleman with metastatic colon cancer presents by ambulance for altered mental status. He is unable to really give any history because he is altered. So the only history is from the paramedics. I guess this started today. I tried calling both phone numbers on the chart to get a hold of his mother with whom he lives on arrival, one was disconnected and the o ther just rang to the cell phone that was on the patient.) Review of Systems Unable to obtain: Confused PD PAST MEDICAL HISTORY - Past Medical History Past Medical History: Yes Cardiovascular: Hypertension Respiratory: None Neuro: Dementia Endocrine/Autoimmune: None GI: GERD, Esophageal varices, Other : None HEENT: None Psych: Anxiety Musculoskeletal: None, Gout, Fatigue, Chronic back pain Derm: None Other Past Medical History: colon cancer with mets to lung and liver - Past Surgical History Past Surgical History: No General: Bowel surgery, EGD - Present Medications Home Medications: Ambulatory Orders Medication Instructions Recorded Confirmed Sertraline [Zoloft] 150 mg PO DAILY 03/18/17 09/24/19 atenoloL [Atenolol] 100 mg PO DAILY 03/18/17 09/24/19 lisinopriL [Lisinopril] 40 mg PO DAILY 03/18/17 09/24/19 Multivitamin [Multiple Vitamins] 1 each PO DAILY 04/24/17 09/24/19 Vitamin B Complex 1 each PO DAILY 04/24/17 09/24/19 Fexofenadine HCl 180 mg PO DAILY 07/12/17 09/24/19 Oxycodone HCl 10 mg PO Q4HR PRN MDD 6 X DAY 07/24/18 09/24/19 MAXIMUM Ondansetron [Zofran Odt] 8 mg PO Q8H PRN 08/21/18 09/24/19 Omeprazole 20 mg PO DAILY 04/16/19 09/24/19 Pregabalin [Lyrica] 150 mg PO TID 05/14/19 09/24/19 Promethazine [Phenergan] 25 mg PO Q6HR PRN 09/10/19 09/24/19 Enoxaparin Sodium 0.8 ml SUBQ BID 09/24/19 09/24/19 - Allergies Allergies/Adverse Reactions: Allergies Allergy/AdvReac Type Severity Reaction Status Date / Time No Known Drug Allergies Allergy Verified 10/09/19 19:11 - Social History Does the pt smoke?: Yes Smoking Status: Current every day smoker Does the pt drink ETOH?: Yes Does the pt have substance abuse?: No - Immunizations Immunizations are current?: No - POLST Patient has POLST: Yes PD ED PE NORMAL - General General: Other ( He is alert to person only, he can figure out he is in the hospital but not why he is otherwise very confused. Does not know the date. Does not know circumstances.) - HEENT HEENT: Other (Right pupil is larger than the left; Unable to check extraocular movements due to some issues with following commands.) - Neck Neck: Supple, no meningeal sign, No bony TTP - Cardiac Cardiac: RRR, No murmur - Respiratory Respiratory: No respiratory distress, Clear bilaterally - Abdomen Abdomen: Other (Multiple anterior abdominal wall hernias with a right sided ostomy, hyperactive bowel tones. A lot of bruising on the abdomen. I guess he is on Lovenox and I am not sure why.) - Derm Derm: Normal color, Warm and dry - Extremities Extremities: No edema, No calf tenderness / cord Results - Vitals Vitals: Vital Signs - 24 hr 10/09/19 19:05 Temperature 37 C Heart Rate 75 Respiratory 18 Rate Blood Pressure 144/99 H O2 Saturation 98 Oxygen O2 Source Room air - EKG (time done) 1924 Rate: Rate (enter#) (75) Rhythm: NSR [place]: Normal Intervals: Prolonged QT, Other (lafb) QRS: Normal Computer interpretation: Agree with computer - Labs Labs: Laboratory Tests 10/09/19 10/09/19 10/09/19 19:24 19:24 19:24 WBC 4.1 L RBC 3.85 L Hgb 12.5 L Hct 37.2 L MCV 96.6 H MCH 32.5 H MCHC 33.6 RDW 17.4 H Plt Count 89 L MPV 9.6 Neut # (Auto) 1.9 Lymph # (Auto) 1.1 L [place] # (Auto) 1.0 Eos # (Auto) 0.0 Baso # (Auto) 0.0 Absolute Nucleated RBC 0.00 Nucleated RBC % 0.0 PT INR Sodium 142 Potassium 3.6 Chloride 107 Carbon Dioxide 24 Anion Gap 11.0 BUN 20 Creatinine 0.9 Estimated GFR (MDRD) 84 L Glucose 126 H Lactic Acid Calcium 9.9 Magnesium 2.2 Total Bilirubin 0.9 AST 33 ALT 29 Alkaline Phosphatase 57 Troponin I High Sens 7.6 Total Protein 7.1 Albumin 4.1 Globulin 3.0 Albumin/Globulin Ratio 1.4 Lipase 30 Ethyl Alcohol < 5.0 10/09/19 10/09/19 19:24 19:31 WBC RBC Hgb Hct MCV MCH MCHC RDW Plt Count MPV Neut # (Auto) Lymph # (Auto) [place] # (Auto) Eos # (Auto) Baso # (Auto) Absolute Nucleated RBC Nucleated RBC % PT 13.9 H INR 1.2 Sodium Potassium Chloride Carbon Dioxide Anion Gap BUN Creatinine Estimated GFR (MDRD) Glucose Lactic Acid 2.1 Calcium Magnesium Total Bilirubin AST ALT Alkaline Phosphatase Troponin I High Sens Total Protein Albumin Globulin Albumin/Globulin Ratio Lipase Ethyl Alcohol - Rads (name of study) Ct A/P Radiology: EMP read contemporaneously (1. No evidence of acute inflammatory or obstructive process in the abdomen or pelvis. 2. Stable partial colectomy and right abdominal colostomy with parastomal hernia. No bowel obstruction, free fluid or free air. 3. Sigmoid diverticula without evidence of acute diverticulitis. 4. Cholelithiasis without evidence of acute cholecystitis. 5. Decreased size of hepatic dome hypodense lesion measuring 2.9 cm, previously 3.8 cm. Previously seen segment 7 lesion not visualized. Stable hepatic hemangioma. 6. Scattered density and foci of air in subcutaneous fat along left anterior abdominal wall. Correlate for recent subcutaneous injections. 7. Small umbilical hernia containing nonobstructed small bowel.) 2v chest Radiology: EMP read contemporaneously (normal) CT Head Radiology: EMP read contemporaneously (normal) PD MEDICAL DECISION MAKING - ED course ED course: Got ahold of mom after trying several numbers: [phone] Decreased appetite and energy since yesterday maybe 48 hrs. Very tired today. Mom left for Xmas dinner and was worse on return. She wonders if he might have had too much oxycodone. He is on lovenox for PEs. After work-up though, no specific etiology was found and he had cleared his mental status. He actually became quite pushy about his pain medications, But was alert and oriented. Mom was updated and agreeable. Departure - Departure Disposition: 01 Home, Self Care Clinical Impression: Colon cancer Qualifiers: Colon location: unspecified part of colon Qualified Code(s): C18.9 - Malignant neoplasm of colon, unspecified Altered mental status Qualifiers: Altered mental status type: delirium Qualified Code(s): R41.0 - Disorientation, unspecified Condition: Good Record reviewed to determine appropriate education?: Yes Instructions: ED Altered Loc
[2019-10-09 19:36] LABS: BASOPHILS % (AUTO) 0.2 %; EOSINOPHILS % (AUTO) 0.5 %; HGB - HEMOGLOBIN 12.5 g/dL (14.0-18.0); LYMPHOCYTES # (AUTO) 1.1 10^3/uL (1.5-3.5); MEAN CORPUSCULAR HEMOGLOBIN 32.5 pg (27.0-31.0); MEAN CORPUSCULAR HGB CONC 33.6 g/dL (32.0-36.0); MEAN CORPUSCULAR VOLUME 96.6 fL (80.0-94.0); MEAN PLATELET VOLUME 9.6 fL (7.4-11.4); MONOCYTES % (AUTO) 24.6 %; NEUTROPHILS # (AUTO) 1.9 10^3/uL (1.5-6.6); NEUTROPHILS % (AUTO) 47.2 %; PLT - PLATELET COUNT 89 10^3/uL (130-450); RED BLOOD COUNT 3.85 10^6/uL (4.70-6.10); RED CELL DISTRIBUTION WIDTH 17.4 % (12.0-15.0); WHITE BLOOD COUNT 4.1 x10^3/uL (4.8-10.8)
[2019-10-09 19:47] LABS: ALBUMIN 4.1 g/dL (3.2-5.5); ALBUMIN/GLOBULIN RATIO 1.4 (1.0-2.2); ALKALINE PHOSPHATASE 57 IU/L (42-121); ALT ALANINE AMINOTRANSFERASE 29 IU/L (10-60); AST ASPARTATE AMINOTRANSFERASE 33 IU/L (10-42); BILIRUBIN,TOTAL 0.9 mg/dL (0.2-1.0); BUN - BLOOD UREA NITROGEN 20 mg/dL (6-20); CALCIUM 9.9 mg/dL (8.5-10.3); CARBON DIOXIDE - CO2 24 mmol/L (21-32); CHLORIDE 107 mmol/L (101-111); CREATININE 0.9 mg/dL (0.6-1.2); GFR - MDRD 84 (>89); GLUCOSE 126 mg/dL (70-100); LIPASE 30 U/L (22-51); MAGNESIUM 2.2 mg/dL (1.7-2.8); SODIUM 142 mmol/L (135-145); TOTAL PROTEIN 7.1 g/dL (6.7-8.2)
[2019-10-09] MEDS ORDERED: IOVERSOL 320 100 ML VIAL IVP ONE ×2 (19:51→20:45)
[2019-10-09 19:55] LABS: INR 1.2 (0.8-1.2); PT - PROTHROMBIN TIME 13.9 secs (9.9-12.6)
[2019-10-09] MEDS ORDERED: oxyCODONE 5 MG TABLET PO STA ×3 (20:43→21:55)
--- NOTE | 2019-10-09 21:05 | CT Report ---
Reason: altered Procedure Date: 10/09/2019 Accession Number: [id number] / [id number] Procedure: CT - HEAD WO CPT Code: Final Report FULL RESULT: EXAM: CT HEAD EXAM DATE: 10/09/2019 08:20 PM. CLINICAL HISTORY: Altered. COMPARISON: None. TECHNIQUE: Multiaxial CT images were obtained from the foramen magnum to the vertex. Reformats: Sagittal and coronal. IV contrast: None. In accordance with CT protocol optimization, one or more of the following dose reduction techniques were utilized for this exam: automated exposure control, adjustment of mA and/or KV based on patient size, or use of iterative reconstructive technique. FINDINGS: Parenchyma: No intraparenchymal hemorrhage. No evidence of mass, midline shift, or CT findings of infarction. Maldonado-white differentiation is distinct. Extraaxial Spaces: Normal for age. No subdural or epidural collections identified. Ventricles: Normal in size and position. Sinuses and Orbits: Imaged paranasal sinuses, orbits, and mastoids show no significant abnormality. Bones: No evidence of fracture or calvarial defect. Other: None. IMPRESSION: No acute intracranial abnormality. RADIA
--- NOTE | 2019-10-09 21:10 | XRAY Report ---
Reason: altered Procedure Date: 10/09/2019 Accession Number: [id number] / [id number] Procedure: XR - Chest 2 View X-Ray CPT Code: 91833 Final Report FULL RESULT: EXAM: CHEST RADIOGRAPHY EXAM DATE: 10/09/2019 08:34 PM. CLINICAL HISTORY: Altered. COMPARISON: CHEST 2 VIEW PA/LAT 09/26/2017 3:48 PM. TECHNIQUE: 2 views. FINDINGS: Lungs/Pleura: No focal opacities evident. No pleural effusion. No pneumothorax. Normal volumes. Mediastinum: Heart and mediastinal contours are unremarkable. Other: Right chest port noted. IMPRESSION: No acute cardiopulmonary abnormality. RADIA
--- NOTE | 2019-10-09 21:31 | CT Report ---
Reason: altered, abd TTP Procedure Date: 10/09/2019 Accession Number: [id number] / [id number] Procedure: CT - Abdomen/Pelvis W CPT Code: Final Report FULL RESULT: EXAM: CT ABDOMEN AND PELVIS EXAM DATE: 10/09/2019 08:24 PM. CLINICAL HISTORY: Altered, abd TTP. History of colon cancer with metastatic disease. COMPARISONS: ABDOMEN/PELVIS W/ 06/19/2019 11:44 AM ABDOMEN/PELVIS W02/28/2019 1:31 PM. TECHNIQUE: Routine helical CT imaging was performed through the abdomen and pelvis. IV contrast: 100 ML OPTIRAY 320. Enteric contrast: No. Reconstructions: Coronal and sagittal. In accordance with CT protocol optimization, one or more of the following dose reduction techniques were utilized for this exam: automated exposure control, adjustment of mA and/or KV based on patient size, or use of iterative reconstructive technique. FINDINGS: Lung Bases: Tiny hiatal hernia. Visualized lower chest otherwise unremarkable. Liver: Decreased size of hypodense lesion at hepatic dome measuring approximately 2.9 cm, previously 3.8 cm. Previously identified segment 7 lesion not seen. Subtle hemangioma is stable. Gallbladder/Bile Ducts: Cholelithiasis without evidence of acute cholecystitis. Spleen: Normal. Pancreas: Unremarkable. Adrenal Glands: Normal. Kidneys: Left renal cysts, largest measuring 1.7 cm. Kidneys otherwise unremarkable. No hydronephrosis or urinary calculi. Peritoneal Cavity/Bowel: Postsurgical changes of partial colectomy and right abdominal colostomy with stable parastomal hernia. Small umbilical hernia containing nonobstructed small bowel. Sigmoid diverticula without evidence of acute diverticulitis. Moderate stool compatible with fecal retention in rectum. Normal appendix visualized. No bowel obstruction, free fluid or free air. No lymphadenopathy. Further decrease in size of aortocaval lymph node measuring 4 mm, previously 7 mm. Pelvic Organs: Normal. The bladder and visualized pelvic organs are within normal limits. Vasculature: Atherosclerotic vascular disease. No abdominal aortic aneurysm. Bones: No acute osseous abnormality. Other: Scattered dense foci and foci of air along left anterior abdominal wall. Stable surgical clips in upper abdomen at midline. IMPRESSION: 1. No evidence of acute inflammatory or obstructive process in the abdomen or pelvis. 2. Stable partial colectomy and right abdominal colostomy with parastomal hernia. No bowel obstruction, free fluid or free air. 3. Sigmoid diverticula without evidence of acute diverticulitis. 4. Cholelithiasis without evidence of acute cholecystitis. 5. Decreased size of hepatic dome hypodense lesion measuring 2.9 cm, previously 3.8 cm. Previously seen segment 7 lesion not visualized. Stable hepatic hemangioma. 6. Scattered density and foci of air in subcutaneous fat along left anterior abdominal wall. Correlate for recent subcutaneous injections. 7. Small umbilical hernia containing nonobstructed small bowel. RADIA
[2019-10-09 22:19] VITALS: BP 147/93
[2019-10-09 22:20] LABS: MUDS CUTOFF CONCENTRATIONS CUTOFF CONC BELOW:
[2019-10-09 22:22] LABS: GLUCOSE, URINE (UA) NEGATIVE (NEGATIVE); KETONES,URINE (UA) 15 mg/dL (NEGATIVE); LEUKOCYTE ESTERASE, URINE NEGATIVE (NEGATIVE); NITRITE,URINE NEGATIVE (NEGATIVE); OCCULT BLOOD,URINE NEGATIVE (NEGATIVE); PROTEIN,URINE NEGATIVE (NEGATIVE); UROBILINOGEN,URINE 0.2 (NORMAL) E.U./dL (NORMAL)
[2019-10-09 22:23] LABS: BILIRUBIN,URINE NEGATIVE (NEGATIVE); CLARITY,URINE CLEAR (CLEAR); ICTOTEST,URINE NEGATIVE
[2019-10-09 22:32] LABS: AMPHETAMINE SCREEN,URINE NEGATIVE (NEGATIVE); BENZODIAZEPINES SCREEN, URINE POSITIVE (NEGATIVE); COCAINE SCREEN URINE NEGATIVE (NEGATIVE); METHADONE SCREEN, URINE NEGATIVE (NEGATIVE); METHAMPHETAMINES SCREEN, URINE NEGATIVE (NEGATIVE); OPIATE SCREEN, URINE POSITIVE (NEGATIVE); OXYCODONE SCREEN, URINE POSITIVE (NEGATIVE); PROPOXYPHENE SCREEN, URINE NEGATIVE (NEGATIVE); TRICYCLIC ANTIDEPRESSANT,URINE NEGATIVE (NEGATIVE)
== END 2019-10-09 23:15 | disposition home or self-care (01) ==
LOC: EDUNIT# → EDBD → ED 18:59
DX: R41.0 Disorientation, unspecified (principal); C78.00 Secondary malignant neoplasm of unspecified lung; C78.7 Secondary malignant neoplasm of liver and intrahepatic bile duct; Z85.038 Personal history of other malignant neoplasm of large intestine; Z90.49 Acquired absence of other specified parts of digestive tract; Z93.3 Colostomy status; Z86.711 Personal history of pulmonary embolism; Z79.01 Long term (current) use of anticoagulants; I44.4 Left anterior fascicular block; I45.81 Long QT syndrome; I10 Essential (primary) hypertension; K80.20 Calculus of gallbladder without cholecystitis without obstruction; K42.9 Umbilical hernia without obstruction or gangrene; K43.9 Ventral hernia without obstruction or gangrene; K44.9 Diaphragmatic hernia without obstruction or gangrene; F03.90 Unspecified dementia, unspecified severity, without behavioral disturbance, psychotic disturbance, mood disturbance, and anxiety; F17.200 Nicotine dependence, unspecified, uncomplicated
CPT/HCPCS: 36415; 70450; 71046; 74177; 80053; 81003; 83605; 83690; 83735; 84484; 85025; 85610; 87040; 93005; 99285; A9270; Q9967; 80306; 80320; 81001; 87086

== ENCOUNTER 2019-10-10 13:06 | Outpatient (CLI) | payer MEDICARE, OTHER ==
--- NOTE | 2019-10-10 16:43 | CONSULTATION NOTE ---
Palliative Care Follow Up - Referral Referring Provider: Dr. Nydia Zayas Time of Visit: [id number] Ref[place] setting: [facility] [place] Reason: Confusion/worsening pain/met colon cancer - Information Sources Records reviewed: RN notes reviewed, Previous records reviewed History/Review of Systems obtained from: Patient, Family (mother at visit; spoke to son on face time) Exam limitations: Clinical condition (patient with some mild STM issues continuing) - History of Present Illness Update Brief HPI Update: This is a 64-year-old gentleman who has had a series of unfortunate events over the last 24 hours. He had been feeling poorly for couple days, has been sleeping more, not eating or drinking, with escalating pain and increased confusion. When his mother came home from dinner, she ended up having called 911. Patient presented to the emergency room, unable to provide any history, patient was confused, and somewhat belligerent. They did work him up, with a CT of the head, concern for possible stroke, found no acute intracranial abnormality. His labs were within normal limits, he was somewhat dehydrated, d id receive some fluids. They did do a CT of abdomen pelvis, without any acute findings, looking for obstruction. They did not find any evidence of acute inflammatory obstructive process, no acute diverticulitis, he had cholelithiasis without evidence of acute cholecystitis, and in fact his hypodense lesion on the hepatic dome was measuring 2.9 cm down from previously 3.8 cm. He is recently on Lovenox injections, did correlate with recent subcutaneous injections. They are unable to identify the underlying etiology, and patient was returned home. Patient has very poor recall of events, is starting to feel little bit better and clear, he presents today with his mother with him. In review with patient, suspect underlying etiology was patient stopped his Lyrica acutely several days ago. His pain is been escalating, paresthesias worse, balance worse, unable to tolerate walking. [place] like Lyrica was not working, so decided to stop without any taper. Lyrica does need a taper and withdrawals, and can cause increased confusion, suspect this combined with patient took some lorazepam as he was feeling quite anxious, would attribute these to withdrawal symptoms, and increased oxycodone because of his escalating pain. His appetite is been poor, he has had several pound weight loss, reports poor changes, increased fatigue and decreased intake for several days. Nausea, headache most likely attributed to dehydration, and increased lethargy with above physical changes. Patient experiencing increased toxicities from his oxaliplatin, pain is becoming intolerable, worsening numbness and worsening balance. He is unsteady in his feet, has difficulty from getting sitting to standing to center himself. Lyrica is no longer effective, and oxycodone not touching it. Unfortunately patient has already started his infusion, will follow up with his oncologist. He was also scheduled for scans on 10/14, will follow up if needed repeat. Patient on Lovenox for PEs, reports breathing and no respiratory distress is returned back to baseline. Social History - Living Situation Living arrangement: At home Living Situation: With family Support System: Patient lives with his mother, who is in her 80s and has poor health as well. She is feeling somewhat overwhelmed and frustrated with him, recognizing he is not tracking well and will need to participate more in his care. She did ask for education and support regarding medication management and to be included more in his care plan. She would also like support from the medical palliative care licensed clinical social worker, who had come and visited patient, but with like specific support for her issues. This was communicated to an medical palliative care licensed clinical social worker. Medications/Allergies - Medications Home Medications: Ambulatory Orders Medication Instructions Recorded Confirmed Sertraline [Zoloft] 150 mg PO DAILY 03/18/17 10/10/19 atenoloL [Atenolol] 100 mg PO DAILY 03/18/17 10/10/19 lisinopriL [Lisinopril] 40 mg PO DAILY 03/18/17 10/10/19 Multivitamin [Multiple Vitamins] 1 each PO DAILY 04/24/17 10/10/19 Vitamin B Complex 1 each PO DAILY 04/24/17 10/10/19 Fexofenadine HCl 180 mg PO DAILY 07/12/17 10/10/19 Oxycodone HCl 10 mg PO Q4HR PRN MDD 6 X DAY 07/24/18 10/10/19 MAXIMUM Ondansetron [Zofran Odt] 8 mg PO Q8H PRN 08/21/18 10/10/19 Omeprazole 20 mg PO DAILY 04/16/19 10/10/19 Pregabalin [Lyrica] 150 mg PO TID 05/14/19 10/10/19 Promethazine [Phenergan] 25 mg PO Q6HR PRN 09/10/19 10/10/19 Enoxaparin Sodium 0.8 ml SUBQ BID 09/24/19 10/10/19 Dexamethasone 2 mg PO DAILY MDD 4 mg x 1 week, 10/10/19 10/10/19 then 2 mg daily LORazepam [Ativan] 0.5 mg PO DAILY PRN 10/10/19 10/10/19 - Allergies Allergies/Adverse Reactions: Allergies Allergy/AdvReac Type Severity Reaction Status Date / Time No Known Drug Allergies Allergy Verified 10/09/19 19:11 Review of Systems - Constitutional Constitutional: reports: Fatigue, Poor appetite, Weight loss (167). denies: Fever, Chills - Eyes Eyes: reports: Vision loss, Corrective lenses - Ears, Nose & Throat Ears, Nose & Throat: reports: Hearing loss, Hearing aids, Nasal congestion, Dry mouth - Cardiovascular Cardiovascular: reports: Lightheadedness, Decr. exercise tolerance - Respiratory Respiratory: reports: SOB with exertion, Other (decreased smoking to 2-3 cigerettes daily). denies: Cough, SOB at rest - Gastrointestinal Gastrointestinal: reports: Nausea (needing meds 1-2 times a day; worse last few days), Poor appetite, Early satiety, Other (taste changes) - Genitourinary Genitourinary: reports: Frequency - Musculoskeletal Musculoskeletal: reports: Muscle aches, Stiffness, Limited range of motion, Muscle weakness, Joint pain - Integumentary Integumentary: reports: Dryness - Neurological Neurological: reports: General weakness, Headache (occurs about 50% of days), Memory problems (worsening even before acute decline), Abnormal gait - Psychiatric Psychiatric: reports: Depression, Anxiety - Hematologic/Lymphatic Hematologic/Lymphatic: reports: Anemia, Bruising (left anticubital from contrast ), Blood clots (hx PE/DVT left leg) - All Other Systems All Other Systems: reports: Reviewed and negative Physical Exam - Vital Signs Temperature: 36.6 C Pulse Rate: 76 Respiratory Rate: 16 Blood Pressure: 139/90 - Physical Exam General Appearance: positive: Moderate distress, Anxious, Other (tired from last 24 hours) Eyes Bilateral: positive: Normal inspection ENT: positive: Other (will be getting 1 1/2 liter of fluids with meds today). negative: Pharyngeal erythema, Dry mucous membranes Neck: positive: No JVD, Trachea midline Cardiovascular: positive: Regular rate & rhythm Respiratory: positive: No respiratory distress, Breath sounds nml, Diminished in bases. negative: Wheezes, Rales, Rhonchi Abdomen: positive: Non-tender, Soft, Distended (hernia). negative: Mass Skin: positive: Pallor, Dryness Extremities: positive: No pedal edema Neurologic/Psychiatric: positive: Oriented x3, Weakness, Depressed mood/affect, Flat affect Palliative Care - POLST Patient has POLST: Yes POLST Status: DNR, Selective Treatment Pain: Pain worsening, Location (see HPI) Tiredness/Fatigue: Severe (7-10) Drowsiness/Sedation: Moderate (4-6) Nausea: Moderate (4-6) Anorexia: Severe (7-10), Weight loss Dyspnea: Mild (1-3) Depression: Moderate (4-6) Anxiety: Severe (7-10) Feelings of wellbeing/Perceived Quality of Life: Fair, Worsening Sleep: Variable sleep pattern Constipation: No Performance Status: Patient has had decline in physical status, reports this is attributed both pain, numbness, and equilibrium and balance issues. He has been able to manage his ADLs, but is less able to walk and more sedentary. - Palliative Care Discussion: Patient is somewhat overwhelmed with his latest series of unfortunate events. This now is his second acute event over the last couple months, is feeling somewhat discouraged. His pain has been escalating, impacting his quality of life dramatically, and is needing more support to manage his current regimen. Patient very much wants his son involved, he is coming in the next 2 weeks, requested that he be included in the conversation so did have him face time along with conversation with mother regarding most likely the withdrawal of Lyrica, and escalating neuropathy secondary to his oxaliplatin him explain the series of unfortunate events over the last few days. Patient's dx appears improved, but symptom burden worsening. Results - Lab Results Lab results reviewed: Yes Impression and Recommendations - Palliative Care Impression: This is a 64-year-old gentleman who acutely presented with confusion/AMS in ED yesterday, ruled out stroke or brain mets, most likely attributed to acute withdrawal of Lyrica and taking lorazepam in response to withdrawal symptoms and increased opioid use. Patient with escalating neuropathic pain as a side effect of his oxaliplatin, no longer managed with Lyrica and opioids, will follow up with oncology regarding ongoing treatment plan with recent escalation of toxicities. Patient continues with increasing symptom burden, palliative care continue to provide support for pain and symptom management and anticipatory guidance. Recommendations/Counseling Done: 1. Chemotherapy induced peripheral neuropathy. This now appears to have met threshold for grade 2/3 toxicity, patient with increased in severe pain, no longer controlled with Lyrica, increased numbness, balance issues, will follow- up with oncology regarding consistent concerns and treatment plan. Patient was to have CT scan 10/14 had one done in ED, that did show improvement in hepatic dome lesion, his CEA continues to improve, may be able to drop oxaliplatin. Counseling provided regarding need to taper Lyrica, would recommend given exacerbation of his pain, though it is not controlling it adequately it is better than off of it, patient will reinitiate Lyrica at 150 mg 3 times daily. 2. PEs. Patient was hospitalized last month, started on Lovenox, he is doing better with his Lovenox injections. His shortness of breath has resolved, back to baseline. Has not resumed heavy smoking, left leg pain improved as well. 3. Anorexia. Patient reports worsening anorexia, poor intake, patient did become dehydrated during this acute episode, but was having weight loss prior to this. Counseling provided regarding weighing benefits and burdens will initiate dexamethasone for appetite stimulant short-term, to help with both fatigue and appetite, was started on 4 mg to take with food x7 days, then decrease to 2 mg daily will reevaluate at next visit. 4. Pain of neoplastic origin, his abdominal pain has mostly resolved, he is using oxycodone more so for his worsening paresthesias in his lower extremities, he has been using up to 6-7 a day,. Did summer counselor regarding patient's altered mental status, and recommended to try to stay with him 4-5 oxycodone, patient is wanted to sleep to be devoid of the pain. 5. Fatigue. This is multifactorial in origin, patient is expressing both emotional and physical fatigue with his persistent treatment. He has met with the palliative care licensed clinical social worker, he has not followed through on physical therapy. He did recommend increased activity of short duration and short distance. Last time he tried it he went for almost 1/4 of a mile and worsened his pain. 6. Advanced care planning. Patient remains quite anxious, very much wants to work on his "bucket list". Patient does have POLST as DNA R and selective treatments, his DURABLE POWER OF DIRECT SELLING COUNSELOR is his son Mohsen who will be available in the next couple weeks. Patient had wanted do some traveling, recommended consider doing this sooner than later. 7.Medication adherence. Patient does get easily overwhelmed, his mother would like to understand better what he is taking so she can help him. Patient does have intermittent panic attacks, was recommended use lorazepam only as needed, has been up to 4 times a month, last several days I suspect his anxiety was exacerbated by his withdrawal symptoms. Written list was reviewed and medications reviewed with both patient and patient's mother. Time Spent: 60 minutes with greater than 50% of this done in counseling regarding pain and symptom management, particular around withdrawal symptoms of Lyrica, reached out to Dr. Jarrett regarding if needs repeat scans, and also concern for neurotoxicity.
== END 2019-10-10 13:07 | disposition home or self-care (01) ==
LOC: PC 13:06
PROVIDERS: ATTEND Nurse Practitioner Adult Health
DX: Z51.5 Encounter for palliative care (principal); G62.0 Drug-induced polyneuropathy; T45.1X5A Adverse effect of antineoplastic and immunosuppressive drugs, initial encounter; G89.3 Neoplasm related pain (acute) (chronic); R53.83 Other fatigue; R63.0 Anorexia; R63.4 Abnormal weight loss; Z79.899 Other long term (current) drug therapy; Z79.891 Long term (current) use of opiate analgesic; Z86.711 Personal history of pulmonary embolism; Z79.01 Long term (current) use of anticoagulants; Z66 Do not resuscitate
CPT/HCPCS: 99215

== ENCOUNTER 2019-11-12 09:58 | Outpatient (CLI) | payer MEDICARE, OTHER | END 2019-11-12 09:59 | disposition home or self-care (01) | LOC: PC 09:58 | PROVIDERS: ATTEND Nurse Practitioner Adult Health | DX: Z53.9 Procedure and treatment not carried out, unspecified reason (principal) ==

== ENCOUNTER 2019-11-12 10:30 | Emergency (ER) | payer MEDICARE, OTHER ==
--- NOTE | 2019-11-12 13:09 | Ultrasound Report ---
Reason: upper ext Procedure Date: 11/12/2019 Accession Number: [id number] / [id number] Procedure: US - Duplex Ext Veins Right CPT Code: Final Report FULL RESULT: EXAM: RIGHT UPPER EXTREMITY VENOUS ULTRASOUND EXAM DATE: 11/12/2019 12:17 PM. CLINICAL HISTORY: Upper extremity pain and swelling. COMPARISON: None. TECHNIQUE: Real-time sonographic vascular imaging was performed by the check and transfer beader through the upper extremity utilizing both color-flow and Doppler spectral analysis. Multiple teleservices representative static images were saved for review. FINDINGS: Internal Jugular Vein (IJV): Normal. Subclavian Vein (SCV): Normal. Axillary Vein : Normal. Cephalic Vein (superficial vein): Normal. Basilic Vein (superficial vein): Normal. Brachial Vein: Normal. Other: None. IMPRESSION: No evidence for deep vein thrombosis. [facility]
--- NOTE | 2019-11-12 13:31 | ED Physician Documentation ---
PD HPI UPPER EXT INJURY - Stated complaint Stated Complaint: RT ARM PX - Chief complaint Chief Complaint: Ext Problem - History obtained from History obtained from: Patient - History of Present Illness Location: Right, Elbow Type of injury: Other (takes lovenox) Where injury occurred: Home Timing - onset: How many days ago (2) Timing - duration: Days Timing - details: Abrupt onset, Still present Improved by: Rest, Immobilization Worsened by: Moving, Palpating Associated symptoms: Swelling. No: Weakness, Numbness, Tingling Contributing factors: Anticoagulated Similar symptoms before: Has not had sx before Recently seen: Other - Additonal information Additional information: 64-year-old male who is getting chemotherapy for colon cancer stage IV is on some Lovenox for pulmonary embolism and he has developed some pain in his right elbow. He is sent to the emergency department for evaluation of possible DVT in his upper extremity. He is unable to move the elbow in a flexion extension he is able to supinate and pronate the elbow without difficulty Review of Systems Constitutional: denies: Fever Eyes: denies: Decreased vision Ears: denies: Ear pain Nose: denies: Congestion Throat: denies: Sore throat Cardiac: denies: Chest pain / pressure Respiratory: denies: Dyspnea, Cough GI: denies: Vomiting : denies: Dysuria Musculoskeletal: reports: Joint pain, Joint swelling Neurologic: denies: Generalized weakness, Focal weakness, Numbness PD PAST MEDICAL HISTORY - Past Medical History Past Medical History: Yes Cardiovascular: Hypertension Respiratory: None Neuro: Dementia Endocrine/Autoimmune: None GI: GERD, Esophageal varices, Other : None HEENT: None Psych: Anxiety Musculoskeletal: None, Gout, Fatigue, Chronic back pain Derm: None - Past Surgical History Past Surgical History: Yes General: Bowel surgery, EGD - Present Medications Home Medications: Ambulatory Orders Medication Instructions Recorded Confirmed Sertraline [Zoloft] 150 mg PO DAILY 03/18/17 10/22/19 atenoloL [Atenolol] 100 mg PO DAILY 03/18/17 10/22/19 lisinopriL [Lisinopril] 40 mg PO DAILY 03/18/17 10/22/19 Multivitamin [Multiple Vitamins] 1 each PO DAILY 04/24/17 10/22/19 Vitamin B Complex 1 each PO DAILY 04/24/17 10/22/19 Fexofenadine HCl 180 mg PO DAILY 07/12/17 10/22/19 Oxycodone HCl 10 mg PO Q4HR PRN MDD 6 X DAY 07/24/18 10/22/19 MAXIMUM Ondansetron [Zofran Odt] 8 mg PO Q8H PRN 08/21/18 10/22/19 Omeprazole 20 mg PO DAILY 04/16/19 10/22/19 Pregabalin [Lyrica] 150 mg PO TID 05/14/19 10/22/19 Promethazine [Phenergan] 25 mg PO Q6HR PRN 09/10/19 10/22/19 Enoxaparin Sodium 0.8 ml SUBQ BID 09/24/19 10/22/19 Dexamethasone 2 mg PO DAILY MDD 4 mg x 1 week, 10/10/19 10/22/19 then 2 mg daily LORazepam [Ativan] 0.5 mg PO DAILY PRN 10/10/19 10/22/19 - Allergies Allergies/Adverse Reactions: Allergies Allergy/AdvReac Type Severity Reaction Status Date / Time No Known Drug Allergies Allergy Verified 11/12/19 10:38 - Social History Does the pt smoke?: Yes Smoking Status: Current every day smoker Does the pt drink ETOH?: No Does the pt have substance abuse?: Yes Substance Use and Type: Marijuana - Immunizations Immunizations are current?: Yes - POLST Patient has POLST: Yes PD ED PE NORMAL - Vitals Vital signs reviewed: Yes (normal ) - General General: Alert and oriented X 3, No acute distress, Well developed/nourished - HEENT HEENT: Atraumatic, PERRL, EOMI - Neck Neck: Supple, no meningeal sign - Cardiac Cardiac: RRR, No murmur - Respiratory Respiratory: No respiratory distress, Clear bilaterally - Abdomen Abdomen: Soft, Non tender - Derm Derm: Normal color, Warm and dry - Extremities Extremities: Other (There is mild swelling to the right elbow and there is significant restriction to ROM of the elbow with flexion/extention and there is no restriction to supination/pronation. The disatl n/v is intact. ) - Neuro Neuro: Alert and oriented X 3, machine specialist 2-12 intact, No motor deficit, No sensory deficit, Normal speech Eye Opening: Spontaneous Motor: Obeys Commands Verbal: Oriented GCS Score: 15 - Psych Psych: Normal mood, Normal affect Results - Vitals Vitals: Vital Signs - 24 hr 11/12/19 11/12/19 11/12/19 10:34 11:33 13:15 Temperature 36.0 C L 36.8 C Heart Rate 68 54 L 59 L Respiratory 14 18 18 Rate Blood Pressure 123/74 109/76 124/75 O2 Saturation 97 93 97 11/12/19 15:00 Temperature 37 C Heart Rate 70 Respiratory 16 Rate Blood Pressure 126/93 H O2 Saturation 96 Oxygen O2 Source Room air - Rads (name of study) duplex upper ext Radiology: Prelim report reviewed (Impression: No evidence for deep venous thrombosis), EMP read indepedently, See rad report elbow Radiology: Prelim report reviewed (Impression: 1. Prominent right elbow joint effusion. No radiographic evidence for fracture.), EMP read indepedently, See rad report PD MEDICAL DECISION MAKING - ED course Complexity details: reviewed results, re-evaluated patient, considered differential, d/w patient, d/w family ED course: 64-year-old male with stage IV colon cancer on chemotherapy is on some Lovenox he has a hemarthrosis of the right elbow causing restriction of motion flexion extension. He has no other joints involved. He does not have evidence of DVT in the right upper extremity. He is placed into a sling for comfort. Departure - Departure Disposition: 01 Home, Self Care Clinical Impression: Hemarthrosis involving elbow joint Qualifiers: Laterality: right Qualified Code(s): M25.021 - Hemarthrosis, right elbow Condition: Stable Instructions: ED Sprain Elbow Follow-Up: Jose Shah MD [Credentialed Staff Provider] - Comments: Today it appears the decreased range of motion in her elbow is due to blood in the joint space. This is likely due to the blood thinner that you are on. If you develop the symptoms in other joints stop taking your injection and follow- up with your primary care doctor. Discharge Date/Time: 11/12/19 15:06
--- NOTE | 2019-11-12 14:30 | XRAY Report ---
Reason: cant flex or extend Procedure Date: 11/12/2019 Accession Number: [id number] / [id number] Procedure: XR - Elbow 3 View RT CPT Code: Final Report FULL RESULT: EXAM: RIGHT ELBOW RADIOGRAPHY EXAM DATE: 11/12/2019 02:15 PM. CLINICAL HISTORY: Cant flex or extend. Right elbow pain and limited range of motion. No known trauma. COMPARISON: None. TECHNIQUE: 3 views. 4 films FINDINGS: Bones: Normal. No fractures or bone lesions. Joints: Prominent right elbow joint effusion. No subluxation. Soft Tissues: Normal. No soft tissue swelling. IMPRESSION: 1. Prominent right elbow joint effusion. 2. No radiographic evidence for fracture. [facility]
[2019-11-12 15:01] VITALS: BP 126/93
== END 2019-11-12 15:06 | disposition home or self-care (01) ==
LOC: ED 10:30
DX: M25.021 Hemarthrosis, right elbow (principal); Z79.01 Long term (current) use of anticoagulants; I26.99 Other pulmonary embolism without acute cor pulmonale; C18.9 Malignant neoplasm of colon, unspecified; I10 Essential (primary) hypertension; F03.90 Unspecified dementia, unspecified severity, without behavioral disturbance, psychotic disturbance, mood disturbance, and anxiety; F17.200 Nicotine dependence, unspecified, uncomplicated
CPT/HCPCS: 99282; 99283

== ENCOUNTER 2019-11-14 16:45 | Inpatient (IN) | payer MEDICARE, OTHER ==
--- NOTE | 2019-11-14 16:59 | ED Physician Documentation ---
PD HPI ALTERED MENTAL STATUS - Stated complaint Stated Complaint: CONFUSION, SLURRED SPEECH - History obtained from History obtained from: Patient, Caregiver (RN from [facility] [place]) - History of Present Illness Timing - onset: Today (64-year-old gentleman with stage IV colon cancer is referred over from the cancer clinic after a FOLFOX infusion for acutely altered mental status. Reportedly showed up for treatment today at around 11 AM with normal mental status, but after waking from a nap at 3 PM was confused, slurring his speech, potentially had abnormal pupils. Patient cannot really give any history due to altered mental status.) Review of Systems Unable to obtain: Confused PD PAST MEDICAL HISTORY - Past Medical History Cardiovascular: Hypertension Respiratory: None Neuro: Dementia Endocrine/Autoimmune: None GI: GERD, Esophageal varices, Other : None HEENT: None Psych: Anxiety Musculoskeletal: None, Gout, Fatigue, Chronic back pain Derm: None - Past Surgical History Past Surgical History: No General: Bowel surgery, EGD - Present Medications Home Medications: Ambulatory Orders Medication Instructions Recorded Confirmed Sertraline [Zoloft] 150 mg PO DAILY 03/18/17 10/22/19 atenoloL [Atenolol] 100 mg PO DAILY 03/18/17 10/22/19 lisinopriL [Lisinopril] 40 mg PO DAILY 03/18/17 10/22/19 Multivitamin [Multiple Vitamins] 1 each PO DAILY 04/24/17 10/22/19 Vitamin B Complex 1 each PO DAILY 04/24/17 10/22/19 Fexofenadine HCl 180 mg PO DAILY 07/12/17 10/22/19 Oxycodone HCl 10 mg PO Q4HR PRN MDD 6 X DAY 07/24/18 10/22/19 MAXIMUM Ondansetron [Zofran Odt] 8 mg PO Q8H PRN 08/21/18 10/22/19 Omeprazole 20 mg PO DAILY 04/16/19 10/22/19 Pregabalin [Lyrica] 150 mg PO TID 05/14/19 10/22/19 Promethazine [Phenergan] 25 mg PO Q6HR PRN 09/10/19 10/22/19 Enoxaparin Sodium 0.8 ml SUBQ BID 09/24/19 10/22/19 Dexamethasone 2 mg PO DAILY MDD 4 mg x 1 week, 10/10/19 10/22/19 then 2 mg daily LORazepam [Ativan] 0.5 mg PO DAILY PRN 10/10/19 10/22/19 - Allergies Allergies/Adverse Reactions: Allergies Allergy/AdvReac Type Severity Reaction Status Date / Time No Known Drug Allergies Allergy Verified 11/12/19 10:38 - Social History Does the pt smoke?: Yes Smoking Status: Current every day smoker Does the pt drink ETOH?: Yes Does the pt have substance abuse?: No - Immunizations Immunizations are current?: No - POLST Patient has POLST: Yes PD ED PE NORMAL - Vitals Vital signs reviewed: Yes - General General: Other (He is alert and oriented to person, can identify that he is in the hospital but not why. Cannot name the date or time.) - HEENT HEENT: EOMI, Other (Pupil 2 mm, left pupil 4 mm, both reactive) - Neck Neck: Supple, no meningeal sign, No bony TTP - Cardiac Cardiac: RRR, No murmur - Respiratory Respiratory: No respiratory distress, Clear bilaterally - Abdomen Abdomen: Other (Ostomy on the right side, abdomen nontender) - Back Back: No CVA TTP, No spinal TTP - Derm Derm: Normal color, Warm and dry - Neuro Neuro: No motor deficit, No sensory deficit, Other (He is alert and oriented to person and place but not time or events) Eye Opening: Spontaneous Verbal: Confused NIHSS - Time Time: 16:55 - Level of Consciousness Level of consciousness: (0) Alert, Keenly responsive LOC Questions: (2) Answers neither correct LOC Commands: (0) Performs both correctly - Gaze Best Gaze: (0) Normal - Visual Visual: (0) No loss - Facial Palsy Facial Palsy: (0) Normal, symmetrical movement - Motor Arms (both separate) Motor Arm (right): (0) No drift Motor Arm (left): (0) No drift - Motor Legs (both separate) Motor Leg (right): (0) No drift Motor Leg (left): (0) No drift - Limb Ataxia Limb Ataxia: (0) Absent - Sensory Sensory: (0) Normal - Best Language Best Language: (0) No aphasia - Dysarthria Dysarthria: (1) [id number] dysarthria - Extinction and Inattention (formally neg Extinction and inattention: (0) No abnormality - Total Score/Results Total Score/Result: 3 Results - Vitals Vitals: Vital Signs - 24 hr 11/14/19 11/14/19 11/14/19 17:01 17:51 18:14 Temperature 38.9 C H 38.8 C H Heart Rate 95 97 Respiratory 25 H 21 Rate Blood Pressure 160/89 H 154/74 H O2 Saturation 93 93 Oxygen O2 Source Room air - Labs Labs: Laboratory Tests 11/14/19 11/14/19 11/14/19 17:19 17:19 17:19 WBC 2.2 L RBC 4.13 L Hgb 13.8 L Hct 43.0 MCV 104.1 H MCH 33.4 H MCHC 32.1 RDW 17.4 H Plt Count 113 L MPV 10.9 Neut # (Auto) Not Reportable Lymph # (Auto) Not Reportable [place] # (Auto) Not Reportable Eos # (Auto) Not Reportable Baso # (Auto) Not Reportable Absolute Nucleated RBC Not Reportable Total Counted 100 Band Neuts % (Manual) 74 H Abnorm Lymph % (Manual) 0 Nucleated RBC % Not Reportable Neutrophils # (Manual) 2.1 Lymphocytes # (Manual) 0.1 L Monocytes # (Manual) 0.0 Eosinophils # (Manual) 0.0 Basophils # (Manual) 0.0 Differential Comment MANUAL DIFFERENTIAL Manual Slide Review Indicated WBC Morphology 1+ VACUOLATION Platelet Estimate DECREASED (<130,000) Platelet Morphology 1+ LARGE PLATELETS RBC Morph Micro Appear OVALOCYTES Sodium 138 Potassium 3.7 Chloride 100 L Carbon Dioxide 25 Anion Gap 13.0 BUN 14 Creatinine 1.1 Estimated GFR (MDRD) 67 L Glucose 133 H Lactic Acid 2.7 H Calcium 9.6 Total Bilirubin 0.8 AST 52 H ALT 34 Alkaline Phosphatase 121 Total Protein 7.7 Albumin 4.2 Globulin 3.5 Albumin/Globulin Ratio 1.2 Lipase 32 Ethyl Alcohol < 5.0 - Rads (name of study) 1v chest Radiology: EMP read contemporaneously (NAD) CT Head Radiology: EMP read contemporaneously (NAD) PD MEDICAL DECISION MAKING - ED course ED course: 64-year-old gentleman presents with altered mental status. He had a similar episode on which was felt to be due to inappropriate medications, he did not receive anything other than his chemotherapy infusion at the [facility] so that seems less likely since he arrived there in normal mental status. He is not a TPA candidate because of ongoing Lovenox use for PE. He was febrile, as such a septic work-up was undertaken with pertinent positive findings of leukopenia but with significant bandemia. This is very concerning for sepsis. At the time of admission the chest x-ray was negative for pneumonia. The nurse tried to straight catheter but no urine was resulted and we got a condom cath on him. He was administered cefepime and vancomycin after blood cultures for presumed sepsis. There is no evidence of meningismus. Spoke with Dr. Eagle for admission at 6:30 PM. Departure - Departure Disposition: 64 [facility] DC/Xfer Clinical Impression: Altered mental status Qualifiers: Altered mental status type: delirium Qualified Code(s): R41.0 - Disorientation, unspecified Sepsis Qualifiers: Sepsis type: sepsis due to unspecified organism Sepsis acute organ dysfunction status: with acute organ dysfunction Severe sepsis acute organ dysfunction type: encephalopathy Severe sepsis shock status: without septic shock Qualified Code(s): A41.9 - Sepsis, unspecified organism; R65.20 - Severe sepsis without septic shock; G93.40 - Encephalopathy, unspecified Condition: Serious
[2019-11-14 17:32] LABS: HGB - HEMOGLOBIN 13.8 g/dL (14.0-18.0); LYMPHOCYTES % (AUTO) 1.4 %; MEAN CORPUSCULAR HEMOGLOBIN 33.4 pg (27.0-31.0); MEAN CORPUSCULAR HGB CONC 32.1 g/dL (32.0-36.0); MEAN CORPUSCULAR VOLUME 104.1 fL (80.0-94.0); MEAN PLATELET VOLUME 10.9 fL (7.4-11.4); MONOCYTES % (AUTO) 2.3 %; NEUTROPHILS % (AUTO) 95.8 %; PLT - PLATELET COUNT 113 10^3/uL (130-450); RED BLOOD COUNT 4.13 10^6/uL (4.70-6.10); RED CELL DISTRIBUTION WIDTH 17.4 % (12.0-15.0); WHITE BLOOD COUNT 2.2 x10^3/uL (4.8-10.8)
[2019-11-14 17:45] LABS: ALBUMIN 4.2 g/dL (3.2-5.5); ALBUMIN/GLOBULIN RATIO 1.2 (1.0-2.2); ALKALINE PHOSPHATASE 121 IU/L (42-121); ALT ALANINE AMINOTRANSFERASE 34 IU/L (10-60); AST ASPARTATE AMINOTRANSFERASE 52 IU/L (10-42); BILIRUBIN,TOTAL 0.8 mg/dL (0.2-1.0); BUN - BLOOD UREA NITROGEN 14 mg/dL (6-20); CALCIUM 9.6 mg/dL (8.5-10.3); CARBON DIOXIDE - CO2 25 mmol/L (21-32); CHLORIDE 100 mmol/L (101-111); CREATININE 1.1 mg/dL (0.6-1.2); GFR - MDRD 67 (>89); GLUCOSE 133 mg/dL (70-100); LIPASE 32 U/L (22-51); SODIUM 138 mmol/L (135-145); TOTAL PROTEIN 7.7 g/dL (6.7-8.2)
[2019-11-14] MEDS ORDERED: SODIUM CHLORIDE 0.9% 1,000 ML IV ONE (17:45)
--- NOTE | 2019-11-14 17:48 | XRAY Report ---
Reason: fever Procedure Date: 11/14/2019 Accession Number: [id number] / [id number] Procedure: XR - Chest 1 View X-Ray CPT Code: 50125 Final Report FULL RESULT: EXAM: CHEST RADIOGRAPHY EXAM DATE: 11/14/2019 04:55 PM. CLINICAL HISTORY: Fever. COMPARISON: CHEST 2 VIEW 10/09/2019 8:22 PM. TECHNIQUE: 1 view. FINDINGS: Lungs/Pleura: No dense consolidation. No large effusion or pneumothorax. No pulmonary edema. Mediastinum: Heart and mediastinal contours are unremarkable. Other: Right port tip terminates at the cavoatrial junction. IMPRESSION: No acute radiographic pulmonary abnormalities. RADIA
--- NOTE | 2019-11-14 18:16 | CT Report ---
Reason: altered Procedure Date: 11/14/2019 Accession Number: [id number] / [id number] Procedure: CT - HEAD WO CPT Code: Final Report FULL RESULT: EXAM: CT HEAD EXAM DATE: 11/14/2019 05:42 PM. CLINICAL HISTORY: Altered. COMPARISON: HEAD W/O 10/09/2019 8:20 PM. TECHNIQUE: Multiaxial CT images were obtained from the foramen magnum to the vertex. Reformats: Sagittal and coronal. IV contrast: None. In accordance with CT protocol optimization, one or more of the following dose reduction techniques were utilized for this exam: automated exposure control, adjustment of mA and/or KV based on patient size, or use of iterative reconstructive technique. FINDINGS: Parenchyma: No intraparenchymal hemorrhage. No evidence of mass, midline shift, or CT findings of infarction. Maldonado-white differentiation is distinct. Extraaxial Spaces: Normal for age. No subdural or epidural collections identified. Ventricles: Normal in size and position. Sinuses and Orbits: Imaged paranasal sinuses, orbits, and mastoids show no significant abnormality. Bones: No evidence of fracture or calvarial defect. Other: None. IMPRESSION: No acute intracranial findings. RADIA
[2019-11-14 18:20] LABS: ABNORMAL LYMPHS % (MANUAL) 0 %
[2019-11-14 18:22] LABS: BAND NEUTROPHILS % (MANUAL) 74 %; LYMPHOCYTES # (MANUAL) 0.1 10^3/uL (1.5-3.5); LYMPHOCYTES % (MANUAL) 5 %
[2019-11-14 18:23] LABS: PLATELET ESTIMATE, MANUAL DECREASED (<130,000) (NORMAL); PLATELET MORPHOLOGY 1+ LARGE PLATELETS (NORMAL)
[2019-11-14 18:24] LABS: DIFFERENTIAL COMMENT MANUAL DIFFERENTIAL
[2019-11-14] MEDS ORDERED: CEFEPIME 2 GM in SODIUM CHLORIDE 0.9% MINIBAG 100 ML IV STA (18:28)
[2019-11-14] MEDS ORDERED: VANCOMYCIN INJ 2 GM in SODIUM CHLORIDE 0.9% 500 ML IV STA (18:28)
[2019-11-14] MEDS ORDERED: ACETAMINOPHEN 325 MG TABLET PO PRN (19:19)
[2019-11-14] MEDS ORDERED: oxyCODONE 5 MG TABLET PO PRN (19:19)
--- NOTE | 2019-11-14 19:19 | HISTORY & PHYSICAL EXAMINATION ---
Chief Complaint - Chief Complaint Chief Complaint: confusion and fever History of Present Illness - Admitted From Admitted From:: [facility] - History Obtained From Records Reviewed: yes History obtained from: ED H&P Exam Limitations: encephalopathy - History of Present Illness HPI Comment/Other: The history below was obtained from the HPI of the ED H&P because the patient is currently confused and unable to provide. The patient is a 64 y/o male with Hx of stage IV colon cancer with mets to the lungs and liver, who presented to the ED from the [facility] clinic. He sees Dr Zayas (oncology) and had just completed his infusion of FOLFOX today when he was noted to be acutely confused. He presented to the cancer clinic around 11 am with a normal mental status , napped through out the infusion and was encephalopathic around 3pm upon waking up. In the ED he was found to have a temp of 38.9 degree celsius, WBC of 2.2 and a lactic acid of 2.7. As a result he was presented for admission for further evaluation and treatment. At bedside he is still confused, thus unable to provide further history. He knows he is in the hospital but does not know the reason why. He asks of his . History - Past Medical History Cardiovascular: reports: Hypertension Respiratory: reports: None Neuro: reports: Dementia Endocrine/Autoimmune: reports: None GI: reports: GERD, Esophageal varices, Other : reports: None HEENT: reports: None Psych: reports: Anxiety Musculoskeletal: reports: None, Gout, Fatigue, Chronic back pain Derm: reports: None MRSA Hx?: No Other Past Medical History: colon cancer - Past Surgical History General: reports: Bowel surgery (colostomy bag in place), EGD - Family & Social History Family History: Mother: Alive and Well, Father: Alive and Well, Alzheimer's Disease, CAD, Sister: Alive and Well Social History Notes: Lives at home with family - Substance History Use: Uses substance without health or social issues: Tobacco, Alcohol - POLST Patient has POLST: Yes POLST Status: DNR Meds/Allgy - Home Medications Home Medications: Ambulatory Orders Medication Instructions Recorded Confirmed Sertraline [Zoloft] 150 mg PO DAILY 03/18/17 10/22/19 atenoloL [Atenolol] 100 mg PO DAILY 03/18/17 10/22/19 lisinopriL [Lisinopril] 40 mg PO DAILY 03/18/17 10/22/19 Multivitamin [Multiple Vitamins] 1 each PO DAILY 04/24/17 10/22/19 Vitamin B Complex 1 each PO DAILY 04/24/17 10/22/19 Fexofenadine HCl 180 mg PO DAILY 07/12/17 10/22/19 Oxycodone HCl 10 mg PO Q4HR PRN MDD 6 X DAY 07/24/18 10/22/19 MAXIMUM Ondansetron [Zofran Odt] 8 mg PO Q8H PRN 08/21/18 10/22/19 Omeprazole 20 mg PO DAILY 04/16/19 10/22/19 Pregabalin [Lyrica] 150 mg PO TID 05/14/19 10/22/19 Promethazine [Phenergan] 25 mg PO Q6HR PRN 09/10/19 10/22/19 Enoxaparin Sodium 0.8 ml SUBQ BID 09/24/19 10/22/19 Dexamethasone 2 mg PO DAILY MDD 4 mg x 1 week, 10/10/19 10/22/19 then 2 mg daily LORazepam [Ativan] 0.5 mg PO DAILY PRN 10/10/19 10/22/19 - Allergies Allergies/Adverse Reactions: Allergies Allergy/AdvReac Type Severity Reaction Status Date / Time No Known Drug Allergies Allergy Verified 11/12/19 10:38 Review of Systems - Constitutional Constitutional: reports: Fever, Weakness - Eyes Eyes: denies: Pain, Dipolpia - Ears, Nose & Throat Ears, Nose & Throat: denies: Tinnitus, Sore throat - Cardiovascular Cariovascular: denies: Irregular heart rate, Palpitations, Chest pain, Edema, Syncope, Exertional dyspnea - Respiratory Respiratory: denies: Cough, Sputum production, Wheezing, Snoring, Hemoptysis, Orthopnea, SOB at rest, SOB with exertion - Gastrointestinal Gastrointestinal: reports: Other (colostomy bag appreciable). denies: Abdominal pain, Abdominal distention, Nausea, Vomiting, Coffee grounds emesis, Reflux/heartburn - Genitourinary Genitourinary: reports: Dysuria. denies: Incontinence, Flank pain - Musculoskeletal Musculoskeletal: denies: Muscle pain, Back pain - Integumentary Integumentary: denies: Rash, Pruritis - Neurological Neurological: reports: General weakness. denies: Focal weakness, Headache, Dizziness - Psychiatric Psychiatric: reports: Depression, Anxiety - Endocrine Endocrine: denies: Polyuria, Polydypsia - Hematologic/Lymphatic Hematologic/Lymphatic: denies: Anemia, Bruising, Petechiae Prior Level of Functionality: Unable to ascertain patient's baseline functional status at the moment Exam - Vital Signs Vital Signs: Vital Signs x48h Temp Pulse Resp BP Pulse Ox 11/14/19 19:00 82 13 112/68 92 11/14/19 18:30 91 14 141/73 H 91 L 11/14/19 18:14 38.8 C H 11/14/19 17:51 97 21 154/74 H 93 11/14/19 17:01 38.9 C H 95 25 H 160/89 H 93 - Physical Exam General Appearance: positive: No acute distress, Other (weak, confused) Eyes Bilateral: positive: Normal inspection, PERRL, EOMI ENT: positive: Dry mucous membranes Neck: positive: No JVD, Trachea midline Respiratory: positive: Chest non-tender, No respiratory distress, Breath sounds nml. negative: Wheezes, Rales, Rhonchi Cardiovascular: positive: Regular rate & rhythm Abdomen: positive: Non-tender, No organomegaly, Nml bowel sounds, Other (colosto my bag in place. Pericolostomy hernia palpable). negative: Guarding, Rebound Back: positive: Nml inspection Skin: positive: No rash, Warm, Dry, Other (bruises on abdomen from lovenox shots) Extremities: positive: Non-tender, Full ROM, Nml appearance, No pedal edema Neurologic/Psychiatric: positive: Other (Disoriented to reason for being here). negative: Disoriented to person, Disoriented to place Sepsis Event Note (H) - Evaluation Current Stage of Sepsis: Sepsis - Sepsis Criteria Sepsis Criteria: Recorded Temperature greater than 38.3C or Less than 36C, Recorded Heart Rate greater than 90 bpm, WBC count greater than 12,000 or less than 4000, PALLETIZER: altered consciousness (unrelated to primary neuro pathology), Metabolic: lactate > 2 mmol/L Conclusion/Plan - Problem List (1) Sepsis Conclusion/Plan: Etiology undetermined. Blood culture and UA pending Patient started on vancomycin and cefepime. Will continue. Initial lactic acid 2.7. Will trend Tylenol for fever. Neutropenic diet precautions Qualifiers: Sepsis type: sepsis due to unspecified organism Sepsis acute organ dysfunction status: with acute organ dysfunction Severe sepsis acute organ dysfunction type: encephalopathy Severe sepsis shock status: without septic shock Qualified Code(s): A41.9 - Sepsis, unspecified organism; R65.20 - Severe sepsis without septic shock; G93.40 - Encephalopathy, unspecified (2) Colon cancer Conclusion/Plan: Mets to liver and lung Patient on FOLFOX. Seen at the [facility] [place] by Dr Zayas Last visit was today 11/14/2019 Qualifiers: Colon location: unspecified part of colon Qualified Code(s): C18.9 - Malignant neoplasm of colon, unspecified (3) Hypertension Conclusion/Plan: On atenolol and lisinopril. Will resume once verified (4) Chronic back pain Conclusion/Plan: On oxycodone prn (5) Anxiety Conclusion/Plan: On lorazepam (6) Depression Conclusion/Plan: On zoloft. (7) GERD (gastroesophageal reflux disease) Conclusion/Plan: Protonix ordered - Lab Results Fish Bones: 11/14/19 17:19 11/14/19 17:19 Core Measures - Anticipated LOS I expect patient to be DC'd or transferred within 96 hours.: Yes - DVT/VTE - Prophylaxis VTE/DVT Device ordered at admit?: Yes VTE/DVT Prophylaxis med ordered at admit?: Yes
[2019-11-14] MEDS: SODIUM CHLORIDE FLUSH 0.9% 10 ML SYRINGE IVP PRN (19:45)
[2019-11-14] MEDS ORDERED: VANCOMYCIN PER PHARMACY 100 GM in SODIUM CHLORIDE 0.9% 250 ML IV SCH (20:00)
[2019-11-14 22:31] LABS: MUDS CUTOFF CONCENTRATIONS CUTOFF CONC BELOW:
[2019-11-14 22:33] LABS: BILIRUBIN,URINE NEGATIVE (NEGATIVE); GLUCOSE, URINE (UA) NEGATIVE (NEGATIVE); KETONES,URINE (UA) NEGATIVE (NEGATIVE); LEUKOCYTE ESTERASE, URINE NEGATIVE (NEGATIVE); NITRITE,URINE NEGATIVE (NEGATIVE); OCCULT BLOOD,URINE NEGATIVE (NEGATIVE); PH,URINE 5.5 PH (5.0-7.5); PROTEIN,URINE NEGATIVE (NEGATIVE); UROBILINOGEN,URINE 0.2 (NORMAL) E.U./dL (NORMAL)
[2019-11-14 22:44] LABS: AMPHETAMINE SCREEN,URINE NEGATIVE (NEGATIVE); BENZODIAZEPINES SCREEN, URINE POSITIVE (NEGATIVE); CLARITY,URINE CLEAR (CLEAR); COCAINE SCREEN URINE NEGATIVE (NEGATIVE); METHADONE SCREEN, URINE NEGATIVE (NEGATIVE); METHAMPHETAMINES SCREEN, URINE NEGATIVE (NEGATIVE); OPIATE SCREEN, URINE NEGATIVE (NEGATIVE); TRICYCLIC ANTIDEPRESSANT,URINE NEGATIVE (NEGATIVE)
[2019-11-14 22:45] LABS: OXYCODONE SCREEN, URINE POSITIVE (NEGATIVE); PROPOXYPHENE SCREEN, URINE NEGATIVE (NEGATIVE)
[2019-11-15] MEDS: SODIUM CHLORIDE FLUSH 0.9% 10 ML SYRINGE IVP SCH ×3 (00:39→16:24)
[2019-11-15 05:32] LABS: BASOPHILS % (AUTO) 0.4 %; EOSINOPHILS % (AUTO) 0.4 %; HGB - HEMOGLOBIN 11.1 g/dL (14.0-18.0); LYMPHOCYTES % (AUTO) 1.7 %; MEAN CORPUSCULAR HEMOGLOBIN 32.8 pg (27.0-31.0); MEAN CORPUSCULAR HGB CONC 31.8 g/dL (32.0-36.0); MEAN CORPUSCULAR VOLUME 103.3 fL (80.0-94.0); MEAN PLATELET VOLUME 11.8 fL (7.4-11.4); MONOCYTES % (AUTO) 7.7 %; NEUTROPHILS % (AUTO) 89.3 %; PLT - PLATELET COUNT 75 10^3/uL (130-450); RED BLOOD COUNT 3.38 10^6/uL (4.70-6.10); RED CELL DISTRIBUTION WIDTH 17.2 % (12.0-15.0); WHITE BLOOD COUNT 8.4 x10^3/uL (4.8-10.8)
[2019-11-15 05:40] LABS: ABNORMAL LYMPHS % (MANUAL) 0 %; CREATININE 0.9 mg/dL (0.6-1.2)
[2019-11-15 06:14] LABS: BAND NEUTROPHILS % (MANUAL) 20 %; EOSINOPHILS # (MANUAL) 0.2 10^3/uL (0-0.7); LYMPHOCYTES # (MANUAL) 0.8 10^3/uL (1.5-3.5); LYMPHOCYTES % (MANUAL) 10 %; MONOCYTES # (MANUAL) 0.3 10^3/uL (0.0-1.0); RBC MORPHOLOGY (MULTIPLE) NORMAL APPEARANCE (NORMAL)
[2019-11-15 06:15] LABS: DIFFERENTIAL COMMENT MANUAL DIFFERENTIAL; PLATELET ESTIMATE, MANUAL DECREASED (<130,000) (NORMAL)
[2019-11-15] MEDS: CEFEPIME 2 GM in SODIUM CHLORIDE 0.9% MINIBAG 100 ML IV SCH ×2 (06:37→18:59)
[2019-11-15] MEDS ORDERED: PANTOPRAZOLE 40 MG VIAL IVP SCH (07:00)
[2019-11-15] MEDS ORDERED: VANCOMYCIN 1 GM VIAL ONE (08:14)
[2019-11-15] MEDS: VANCOMYCIN INJ 1 GM in SODIUM CHLORIDE 0.9% 250 ML IV SCH ×2 (08:34→19:49)
[2019-11-15] MEDS: ENOXAPARIN 40 MG/0.4 ML SYRINGE SUBQ SCH ×2 (09:05→11:59)
[2019-11-15] MEDS: oxyCODONE 5 MG TABLET PO PRN ×4 (10:13→22:22)
--- NOTE | 2019-11-15 10:51 | PHARMACY PROGRESS NOTE ---
- Best Possible Medication History Admit Date and Time: 11/14/19 1834 Processed by: Pharmacy Medication History completed: Yes Patient Interview: Completed Secondary Source(s): Physician records, Pharmacy records As the person ultimately responsible for medication therapy, providers are able to order a medication from an existing home medication list in [facility] via the "Reconcile Routine" prior to Confirmation of that medication by lab support service tech. Such practice is discouraged except when the physician, in their clinical judgment, deems that a medical need exists for a medication without regard to previous use.
--- NOTE | 2019-11-15 13:34 | PROVIDER PROGRESS NOTE ---
Assessment/Plan - Problem List (1) Sepsis Qualifiers: Sepsis type: sepsis due to unspecified organism Sepsis acute organ dysfunction status: with acute organ dysfunction Severe sepsis acute organ dysfunction type: encephalopathy Severe sepsis shock status: without septic shock Qualified Code(s): A41.9 - Sepsis, unspecified organism; R65.20 - Severe sepsis without septic shock; G93.40 - Encephalopathy, unspecified Assessment/Plan: He had neutropenia, elevated lactic acid level and a fever. Empiric antibiotics were started. Source of a poss infection is not clear. Await culture results (2) Neutropenic fever Assessment/Plan: The white blood count is improved from 2.2-8. There were no more fevers. Neutropenic precautions will be removed. Await blood culture results since chest x-ray and urinalysis are negative. Continue empiric antibiotics (3) Altered mental status Qualifiers: Altered mental status type: delirium Qualified Code(s): R41.0 - Disor ientation, unspecified (4) Colon cancer Qualifiers: Colon location: unspecified part of colon Qualified Code(s): C18.9 - Malign ant neoplasm of colon, unspecified (5) Peripheral neuropathic pain Assessment/Plan: His Lyrica and oxycodone at proper doses were resumed (6) Hypertension Assessment/Plan: His blood pressure meds were resumed with hold orders in case blood pressure drops while septic - Current Meds Current Meds: Current Medications Generic Name Dose Route Start Last Admin Trade Name Freq PRN Reason Stop Dose Admin Enoxaparin Sodium 40 mg 11/15/19 09:00 11/15/19 11:59 Lovenox SUBQ Not Given DAILY [place] Cefepime HCl 2 gm/ Sodium 100 mls @ 200 mls/hr 11/15/19 07:00 11/15/19 07:07 Chloride IV Infused Q12H [place] Infusion Vancomycin HCl 1 gm/ Sodium 250 mls @ 167 mls/hr 11/15/19 08:00 11/15/19 10:04 Chloride IV Infused Q12H [place] Infusion Oxycodone HCl 10 mg 11/15/19 10:01 11/15/19 10:13 Roxicodone PO 10 mg Q4HR PRN Administration Pain 5 to 7 Pantoprazole Sodium 40 mg 11/15/19 07:00 11/15/19 06:32 Protonix IVP 40 mg QDAC [place] Administration Sodium Chloride 10 ml 11/14/19 19:19 11/14/19 19:45 Normal Saline Flush 0.9% IVP 10 ml PRN PRN Administration NEEDED PER PROVIDER ORDERS Sodium Chloride 10 ml 11/15/19 01:00 11/15/19 08:34 Normal Saline Flush 0.9% IVP 10 ml 0100,0900,1700 [place] Administration - Lab Result Fish Bone Diagrams: 11/15/19 04:45 11/15/19 04:45 - Additional Planning My Orders: My Active Orders 11/14/19 18:37 Vital Signs [RC] Q4HR 11/15/19 10:01 oxyCODONE [Roxicodone] 10 mg PO Q4HR PRN 11/16/19 05:00 MAGNESIUM [CHEM] DAILYLAB Subjective - Subjective Patient Reports: Other (He can tell that he is still confused and gave me several examples) Objective Vital Signs: Vital Signs - 24 hr 11/14/19 11/14/19 11/14/19 17:01 17:51 18:14 Temperature 38.9 C H 38.8 C H Heart Rate 95 97 Heart Rate [ Brachial] Respiratory 25 H 21 Rate Blood Pressure 160/89 H 154/74 H Blood Pressure [Right Brachial artery] O2 Saturation 93 93 11/14/19 11/14/19 11/14/19 18:30 19:00 21:00 Temperature 36.6 C 36.6 C Heart Rate 91 82 Heart Rate [ 95 84 Brachial] Respiratory 14 18 18 Rate Blood Pressure 141/73 H 112/68 Blood Pressure 128/68 120/58 L [Right Brachial artery] O2 Saturation 91 L 94 94 11/15/19 11/15/19 11/15/19 00:00 05:00 06:03 Temperature 36.4 C L 36.4 C L 36.4 C L Heart Rate 60 Heart Rate [ 70 60 Brachial] Respiratory 16 18 18 Rate Blood Pressure Blood Pressure 113/51 L 122/64 [Right Brachial artery] O2 Saturation 93 95 95 11/15/19 11/15/19 07:20 11:29 Temperature 36.6 C 36.4 C L Heart Rate Heart Rate [ 61 64 Brachial] Respiratory 18 18 Rate Blood Pressure Blood Pressure 128/69 117/81 H [Right Brachial artery] O2 Saturation 94 95 Oxygen O2 Source Room air I&O (Last 24 Hrs): Intake and Output Totals x24h 11/13/19 11/14/19 11/15/19 23:59 23:59 23:59 Intake Total 1600 1630 Output Total 900 650 Balance 700 980 General: Alert, Other (disoriented and forgetful) HEENT: Mucous membr. moist/pink Neck: Supple, No JVD Neuro: Alert, Disoriented Cardiovascular: Regular rate, No murmurs Respiratory: No respiratory distress, Breath sounds nml Abdomen: Soft Extremities: No edema, Other (R elbow hematoma) - Results Results: Laboratory Results WBC 8.4 x10^3/uL (4.8-10.8) 11/15/19 04:45 RBC 3.38 10^6/uL (4.70-6.10) L 11/15/19 04:45 Hgb 11.1 g/dL (14.0-18.0) L 11/15/19 04:45 Hct 34.9 % (42.0-52.0) L 11/15/19 04:45 MCV 103.3 fL (80.0-94.0) H 11/15/19 04:45 MCH 32.8 pg (27.0-31.0) H 11/15/19 04:45 MCHC 31.8 g/dL (32.0-36.0) L 11/15/19 04:45 RDW 17.2 % (12.0-15.0) H 11/15/19 04:45 Plt Count 75 10^3/uL (130-450) L 11/15/19 04:45 MPV 11.8 fL (7.4-11.4) H 11/15/19 04:45 Neut # (Auto) Not Reportable 11/15/19 04:45 Lymph # (Auto) Not Reportable 11/15/19 04:45 [place] # (Auto) Not Reportable 11/15/19 04:45 Eos # (Auto) Not Reportable 11/15/19 04:45 Baso # (Auto) Not Reportable 11/15/19 04:45 Absolute Nucleated RBC Not Reportable 11/15/19 04:45 Total Counted 100 11/15/19 04:45 Band Neuts % (Manual) 20 % (0-10) H 11/15/19 04:45 Abnorm Lymph % (Manual) 0 % 11/15/19 04:45 Nucleated RBC % Not Reportable 11/15/19 04:45 Neutrophils # (Manual) 7.1 10^3/uL (1.5-6.6) H 11/15/19 04:45 Lymphocytes # (Manual) 0.8 10^3/uL (1.5-3.5) L 11/15/19 04:45 Monocytes # (Manual) 0.3 10^3/uL (0.0-1.0) 11/15/19 04:45 Eosinophils # (Manual) 0.2 10^3/uL (0-0.7) 11/15/19 04:45 Basophils # (Manual) 0.0 10^3/uL (0-0.1) 11/15/19 04:45 Differential Comment MANUAL DIFFERENTIAL 11/15/19 04:45 Manual Slide Review Indicated 11/14/19 17:19 WBC Morphology 1+ VACUOLATION (NORMAL) 11/14/19 17:19 Platelet Estimate DECREASED (<130,000) (NORMAL) 11/15/19 04:45 Platelet Morphology 1+ LARGE PLATELETS (NORMAL) 11/14/19 17:19 RBC Morph Micro Appear 1+ ANISOCYTOSIS (NORMAL) 1+ MACROCYTOSIS (NORMAL) 1+ POLYCHROMASIA (NORMAL) OVALOCYTES (NORMAL) 11/14/19 17:19 RBC Morph Micro Appear 1+ ANISOCYTOSIS (NORMAL) 1+ MACROCYTOSIS (NORMAL) 1+ POLYCHROMASIA (NORMAL) OVALOCYTES (NORMAL) 11/14/19 17:19 RBC Morph Micro Appear 1+ ANISOCYTOSIS (NORMAL) 1+ MACROCYTOSIS (NORMAL) 1+ POLYCHROMASIA (NORMAL) OVALOCYTES (NORMAL) 11/14/19 17:19 RBC Morph Micro Appear NORMAL APPEARANCE (NORMAL) 11/15/19 04:45 Sodium 139 mmol/L (135-145) 11/15/19 04:45 Potassium 4.5 mmol/L (3.5-5.0) 11/15/19 04:45 Chloride 106 mmol/L (101-111) 11/15/19 04:45 Carbon Dioxide 21 mmol/L (21-32) 11/15/19 04:45 Anion Gap 12.0 (6-13) 11/15/19 04:45 BUN 18 mg/dL (6-20) 11/15/19 04:45 Creatinine 0.9 mg/dL (0.6-1.2) 11/15/19 04:45 Estimated GFR (MDRD) 84 (>89) L 11/15/19 04:45 Glucose 142 mg/dL (70-100) H 11/15/19 04:45 Lactic Acid 1.5 mmol/L (0.5-2.2) 11/14/19 20:01 Calcium 9.0 mg/dL (8.5-10.3) 11/15/19 04:45 Total Bilirubin 0.8 mg/dL (0.2-1.0) 11/14/19 17:19 AST 52 IU/L (10-42) H 11/14/19 17:19 ALT 34 IU/L (10-60) 11/14/19 17:19 Alkaline Phosphatase 121 IU/L (42-121) 11/14/19 17:19 Total Protein 7.7 g/dL (6.7-8.2) 11/14/19 17:19 Albumin 4.2 g/dL (3.2-5.5) 11/14/19 17:19 Globulin 3.5 g/dL (2.1-4.2) 11/14/19 17:19 Albumin/Globulin Ratio 1.2 (1.0-2.2) 11/14/19 17:19 Lipase 32 U/L (22-51) 11/14/19 17:19 Urine Color YELLOW 11/14/19 22:25 Urine Clarity CLEAR (CLEAR) 11/14/19 22:25 Urine pH 5.5 PH (5.0-7.5) 11/14/19 22:25 Ur Specific [place] 1.020 (1.002-1.030) 11/14/19 22:25 Urine Protein NEGATIVE mg/dL (NEGATIVE) 11/14/19 22:25 Urine Glucose (UA) NEGATIVE mg/dL (NEGATIVE) 11/14/19 22:25 Urine Ketones NEGATIVE mg/dL (NEGATIVE) 11/14/19 22:25 Urine Occult Blood NEGATIVE (NEGATIVE) 11/14/19 22:25 Urine Nitrite NEGATIVE (NEGATIVE) 11/14/19 22:25 Urine Bilirubin NEGATIVE (NEGATIVE) 11/14/19 22:25 Urine Urobilinogen 0.2 (NORMAL) E.U./dL (NORMAL) 11/14/19 22:25 Ur Leukocyte Esterase NEGATIVE (NEGATIVE) 11/14/19 22:25 Ur Microscopic Review NOT INDICATED 11/14/19 22:25 Urine Culture Comments NOT INDICATED 11/14/19 22:25 Urine Opiates Screen NEGATIVE (NEGATIVE) 11/14/19 22:25 Ur Oxycodone Screen POSITIVE (NEGATIVE) H 11/14/19 22:25 Urine Methadone Screen NEGATIVE (NEGATIVE) 11/14/19 22:25 Ur Propoxyphene Screen NEGATIVE (NEGATIVE) 11/14/19 22:25 Ur Barbiturates Screen NEGATIVE (NEGATIVE) 11/14/19 22:25 Ur Tricyclics Screen NEGATIVE (NEGATIVE) 11/14/19 22:25 Ur Phencyclidine Scrn NEGATIVE (NEGATIVE) 11/14/19 22:25 Ur Amphetamine Screen NEGATIVE (NEGATIVE) 11/14/19 22:25 U Methamphetamines Scrn NEGATIVE (NEGATIVE) 11/14/19 22:25 U Benzodiazepines Scrn POSITIVE (NEGATIVE) H 11/14/19 22:25 Urine Cocaine Screen NEGATIVE (NEGATIVE) 11/14/19 22:25 U Cannabinoids Screen NEGATIVE (NEGATIVE) 11/14/19 22:25 Ethyl Alcohol < 5.0 mg/dL 11/14/19 17:19 Sepsis Event Note (H) - Evaluation Current Stage of Sepsis: Sepsis - Sepsis Criteria Sepsis Criteria: Recorded Temperature greater than 38.3C or Less than 36C, Recorded Heart Rate greater than 90 bpm, WBC count greater than 12,000 or less than 4000, STRAWHAT INSPECTOR AND PACKER: altered consciousness (unrelated to primary neuro pathology), Metabolic: lactate > 2 mmol/L
[2019-11-15] MEDS ORDERED: SODIUM CHLORIDE FLUSH 0.9% 10 ML SYRINGE IVP PRN (14:26)
[2019-11-15] MEDS ORDERED: LORazepam 0.5 MG TABLET PO PRN (15:02)
[2019-11-15] MEDS: PREGABALIN 100 MG CAPSULE PO SCH ×2 (16:24→21:55)
--- NOTE | 2019-11-15 17:07 | PHARMACY PROGRESS NOTE ---
- Therapy Status Vancomycin regimen day #: 2 Therapy status: Awaiting steady state Basis for treatment: Empirical Treatment indication: SEPSIS Trough goal: 15-20 Concurrent antibiotics: CEFEPIME - DELORIS Risk Risk level for Acute Kidney Injury: Moderate Acute Kidney Injury risk factors: Goal trough >15, Chronic baseline hypertension, Sepsis - Monitoring and Recommendation Clinical response to treatment: I&O Previous 24 hours 11/13/19 11/14/19 11/15/19 23:59 23:59 23:59 Intake Total 1600 1730 Output Total 900 1200 Balance 700 530 Lab Results 11/15/19 11/14/19 04:45 17:19 BUN 18 14 Creatinine 0.9 1.1 Estimated GFR (MDRD) 84 L 67 L Monitoring plan: Daily serum creatinine Areas for additional monitoring: IV to PO when appropriate, Therapy de- escalation based on culture results Pharmacy recommendation: Continue current regime
[2019-11-15] MEDS: PREGABALIN 25 MG CAPSULE PO SCH (21:55)
[2019-11-16] MEDS: oxyCODONE 5 MG TABLET PO PRN ×4 (04:57→22:17)
[2019-11-16 05:07] LABS: BASOPHILS % (AUTO) 0.3 %; EOSINOPHILS % (AUTO) 0.2 %; HGB - HEMOGLOBIN 10.2 g/dL (14.0-18.0); LYMPHOCYTES % (AUTO) 13.7 %; MEAN CORPUSCULAR HEMOGLOBIN 32.7 pg (27.0-31.0); MEAN CORPUSCULAR HGB CONC 32.1 g/dL (32.0-36.0); MEAN CORPUSCULAR VOLUME 101.9 fL (80.0-94.0); NEUTROPHILS % (AUTO) 80.8 %; PLT - PLATELET COUNT 72 10^3/uL (130-450); RED BLOOD COUNT 3.12 10^6/uL (4.70-6.10); RED CELL DISTRIBUTION WIDTH 17.3 % (12.0-15.0); WHITE BLOOD COUNT 6.3 x10^3/uL (4.8-10.8)
[2019-11-16 05:12] LABS: ABNORMAL LYMPHS % (MANUAL) 0 %
[2019-11-16 05:16] LABS: CREATININE 0.7 mg/dL (0.6-1.2); MAGNESIUM 2.4 mg/dL (1.7-2.8)
[2019-11-16] MEDS: PREGABALIN 25 MG CAPSULE PO SCH ×3 (05:30→22:17)
[2019-11-16] MEDS: PREGABALIN 100 MG CAPSULE PO SCH ×3 (05:30→22:17)
[2019-11-16] MEDS: CEFEPIME 2 GM in SODIUM CHLORIDE 0.9% MINIBAG 100 ML IV SCH ×2 (05:30→17:26)
[2019-11-16] MEDS: SODIUM CHLORIDE FLUSH 0.9% 10 ML SYRINGE IVP SCH ×3 (05:30→17:29)
[2019-11-16 05:49] LABS: BAND NEUTROPHILS % (MANUAL) 3 %; LYMPHOCYTES # (MANUAL) 0.6 10^3/uL (1.5-3.5); LYMPHOCYTES % (MANUAL) 9 %; MONOCYTES # (MANUAL) 0.4 10^3/uL (0.0-1.0)
[2019-11-16 05:51] LABS: PLATELET ESTIMATE, MANUAL DECREASED (<130,000) (NORMAL); PLATELET MORPHOLOGY NORMAL APPEARANCE (NORMAL); RBC MORPHOLOGY (MULTIPLE) 1+ ANISOCYTOSIS (NORMAL)
[2019-11-16 05:54] LABS: DIFFERENTIAL COMMENT MANUAL DIFFERENTIAL
[2019-11-16] MEDS: SODIUM CHLORIDE FLUSH 0.9% 10 ML SYRINGE IVP PRN (06:12)
[2019-11-16] MEDS: PANTOPRAZOLE 40 MG TABLET PO SCH (06:22)
[2019-11-16] MEDS: ENOXAPARIN 40 MG/0.4 ML SYRINGE SUBQ SCH (07:29)
[2019-11-16] MEDS: VANCOMYCIN INJ 1 GM in SODIUM CHLORIDE 0.9% 250 ML IV SCH ×2 (08:11→20:36)
[2019-11-16] MEDS: MULTIVITAMIN TABLET PO SCH (08:12)
[2019-11-16 08:20] LABS: VANCOMYCIN,TROUGH 17.6 ug/mL (10.0-20.0)
[2019-11-16] MEDS: FEXOFENADINE 60 MG TABLET PO SCH (08:29)
[2019-11-16] MEDS: SERTRALINE 50 MG TABLET PO SCH (08:29)
[2019-11-16] MEDS ORDERED: NON FORMULARY MED (Vitamin B Complex [Vitamin B Complex] 1 EACH) PO SCH (09:00)
[2019-11-16] MEDS ORDERED: atenoloL 25 MG TABLET PO SCH (09:00)
--- NOTE | 2019-11-16 14:01 | PROVIDER PROGRESS NOTE ---
Assessment/Plan - Problem List (1) Neutropenic fever Assessment/Plan: Continue with empiric broad-spectrum antibiotics. Await final culture results to be negative at the 48-hour genevieve which will be tomorrow. He will probably go home with oral antibiotics to finish a course of empiric treatment (2) Altered mental status Qualifiers: Altered mental status type: delirium Qualified Code(s): R41.0 - Disorientation, unspecified Assessment/Plan: There is improvement in his lucidity and decision making today but he reports memory is still suboptimal. Continue to watch neurologic status. No indication for spinal tap since he is improving, WBCs also improving on current antibiotics. (3) Colon cancer Qualifiers: Colon location: unspecified part of colon Qualified Code(s): C18.9 - Malignant neoplasm of colon, unspecified Assessment/Plan: As per Hx (4) Peripheral neuropathic pain Assessment/Plan: No complaints of pain in his feet or fingertips since his home meds were restarted (5) Hypertension Assessment/Plan: His home blood pressure meds were restarted, blood pressure is under good control (6) Sepsis Qualifiers: Sepsis type: sepsis due to unspecified organism Sepsis acute organ dysfunction status: with acute organ dysfunction Severe sepsis acute organ dysfunction type: encephalopathy Severe sepsis shock status: without septic shock Qualified Code(s): A41.9 - Sepsis, unspecified organism; R65.20 - Severe sepsis without septic shock; G93.40 - Encephalopathy, unspecified Assessment/Plan: Lactic acid has normalized, tachycardia has improved, white blood count has improved after being neutropenic. He still remains confused however Source of infection is unknown but this could have been a neutropenic fever - Current Meds Current Meds: Current Medications Generic Name Dose Route Start Last Admin Trade Name Freq PRN Reason Stop Dose Admin Atenolol 100 mg 11/16/19 09:00 11/16/19 08:29 Tenormin PO 100 mg DAILY [place] Administration Enoxaparin Sodium 40 mg 11/15/19 09:00 11/16/19 07:29 Lovenox SUBQ Not Given DAILY [place] Fexofenadine HCl 180 mg 11/16/19 09:00 11/16/19 08:29 Juliann PO 180 mg DAILY [place] Administration Heparin Sodium (Beef Lung) 30 - 50 unit 11/15/19 14:26 11/16/19 12:39 IVP 50 unit PRN PRN Administration Port Protocol (<24 hours) Cefepime HCl 2 gm/ Sodium 100 mls @ 200 mls/hr 11/15/19 07:00 11/16/19 06:00 Chloride IV Infused Q12H [place] Infusion Vancomycin HCl 1 gm/ Sodium 250 mls @ 167 mls/hr 11/15/19 08:00 11/16/19 08:11 Chloride IV 167 mls/hr Q12H [place] Administration Multivitamins 1 tab 11/16/19 08:00 11/16/19 08:12 Theragran PO 1 tab DAILYWM [place] Administration Oxycodone HCl 10 mg 11/15/19 10:01 11/16/19 04:57 Roxicodone PO 10 mg Q4HR PRN Administration Pain 5 to 7 Pantoprazole Sodium 40 mg 11/16/19 07:00 11/16/19 06:22 Protonix PO 40 mg QDAC [place] Administration Pregabalin 100 mg 11/15/19 16:00 11/16/19 05:30 Lyrica PO 100 mg TID [place] Administration Pregabalin 50 mg 11/15/19 22:00 11/16/19 05:30 Lyrica PO 50 mg TID [place] Administration Sertraline HCl 150 mg 11/16/19 09:00 11/16/19 08:29 Zoloft PO 150 mg DAILY [place] Administration Sodium Chloride 10 ml 11/14/19 19:19 11/16/19 06:12 Normal Saline Flush 0.9% IVP 10 ml PRN PRN Administration NEEDED PER PROVIDER ORDERS Sodium Chloride 10 ml 11/15/19 01:00 11/16/19 08:21 Normal Saline Flush 0.9% IVP 10 ml 0100,0900,1700 [place] Administration Sodium Chloride 20 ml 11/15/19 14:26 11/16/19 08:21 Normal Saline Flush 0.9% IVP 20 ml PRN PRN Administration After Blood Draw - Lab Result Fish Bone Diagrams: 11/16/19 04:45 11/16/19 04:45 - Additional Planning My Orders: My Active Orders 11/15/19 14:26 Heparin Flush 30 - 50 unit IVP PRN PRN Sodium Chloride Flush 0.9% [Normal Saline Flush 0.9%] 20 ml IVP PRN PRN 11/15/19 15:02 LORazepam [Ativan] 0.5 mg PO DAILY PRN 11/15/19 16:00 Pregabalin [Lyrica] 100 mg PO TID 11/15/19 22:00 Pregabalin [Lyrica] 50 mg PO TID 11/16/19 05:00 FOLATE [IAI] Routine VITAMIN B12 [IAI] Routine 11/16/19 07:00 Pantoprazole [Protonix] 40 mg PO QDAC 11/16/19 08:00 Multivitamin [Theragran] 1 tab PO DAILYWM 11/16/19 09:00 Fexofenadine [Juliann] 180 mg PO DAILY Sertraline [Zoloft] 150 mg PO DAILY atenoloL [Tenormin] 100 mg PO DAILY Subjective - Subjective Patient Reports: Feeling Better, Other (He still feels that his memory is suboptimal (could not remember what type of cancer he had when speaking to the turn out worker)) Objective Vital Signs: Vital Signs - 24 hr 11/15/19 11/15/19 11/15/19 16:34 16:46 20:12 Temperature 36.9 C 36.9 C 36.8 C Heart Rate [ 64 65 62 Brachial] Respiratory 18 18 18 Rate Blood Pressure [Left Brachial artery] Blood Pressure 125/69 125/69 135/71 H [Right Brachial artery] O2 Saturation 96 96 95 11/16/19 11/16/19 11/16/19 00:00 05:00 07:50 Temperature 36.5 C 36.4 C L 36.5 C Heart Rate [ 77 71 61 Brachial] Respiratory 18 18 18 Rate Blood Pressure 141/70 H [Left Brachial artery] Blood Pressure 161/84 H 151/77 H [Right Brachial artery] O2 Saturation 97 97 93 11/16/19 12:38 Temperature 36.9 C Heart Rate [ 50 L Brachial] Respiratory 18 Rate Blood Pressure [Left Brachial artery] Blood Pressure 131/67 H [Right Brachial artery] O2 Saturation 97 Oxygen O2 Source Room air I&O (Last 24 Hrs): Intake and Output Totals x24h 11/14/19 11/15/19 11/16/19 23:59 23:59 23:59 Intake Total 1600 2430 740 Output Total 900 1200 1350 Balance 700 1230 -610 General: Alert, Oriented x3, No acute distress HEENT: Atraumatic, Mucous membr. moist/pink Neck: Supple, No JVD Neuro: Alert, Non Focal Cardiovascular: Regular rate, No murmurs Respiratory: No respiratory distress, Breath sounds nml Abdomen: Normal bowel sounds, Soft, No tenderness Extremities: No edema - Results Results: Laboratory Results WBC 6.3 x10^3/uL (4.8-10.8) 11/16/19 04:45 RBC 3.12 10^6/uL (4.70-6.10) L 11/16/19 04:45 Hgb 10.2 g/dL (14.0-18.0) L 11/16/19 04:45 Hct 31.8 % (42.0-52.0) L 11/16/19 04:45 MCV 101.9 fL (80.0-94.0) H 11/16/19 04:45 MCH 32.7 pg (27.0-31.0) H 11/16/19 04:45 MCHC 32.1 g/dL (32.0-36.0) 11/16/19 04:45 RDW 17.3 % (12.0-15.0) H 11/16/19 04:45 Plt Count 72 10^3/uL (130-450) L 11/16/19 04:45 MPV 12.0 fL (7.4-11.4) H 11/16/19 04:45 Neut # (Auto) Not Reportable 11/16/19 04:45 Lymph # (Auto) Not Reportable 11/16/19 04:45 [place] # (Auto) Not Reportable 11/16/19 04:45 Eos # (Auto) Not Reportable 11/16/19 04:45 Baso # (Auto) Not Reportable 11/16/19 04:45 Absolute Nucleated RBC Not Reportable 11/16/19 04:45 Total Counted 100 11/16/19 04:45 Band Neuts % (Manual) 3 % (0-10) 11/16/19 04:45 Abnorm Lymph % (Manual) 0 % 11/16/19 04:45 Nucleated RBC % Not Reportable 11/16/19 04:45 Neutrophils # (Manual) 5.4 10^3/uL (1.5-6.6) 11/16/19 04:45 Lymphocytes # (Manual) 0.6 10^3/uL (1.5-3.5) L 11/16/19 04:45 Monocytes # (Manual) 0.4 10^3/uL (0.0-1.0) 11/16/19 04:45 Eosinophils # (Manual) 0.0 10^3/uL (0-0.7) 11/16/19 04:45 Basophils # (Manual) 0.0 10^3/uL (0-0.1) 11/16/19 04:45 Differential Comment MANUAL DIFFERENTIAL 11/16/19 04:45 Manual Slide Review Indicated 11/14/19 17:19 WBC Morphology NORMAL APPEARANCE (NORMAL) 11/16/19 04:45 Platelet Estimate DECREASED (<130,000) (NORMAL) 11/16/19 04:45 Platelet Morphology NORMAL APPEARANCE (NORMAL) 11/16/19 04:45 RBC Morph Micro Appear 1+ ANISOCYTOSIS (NORMAL) 1+ MACROCYTOSIS (NORMAL) 1+ POLYCHROMASIA (NORMAL) OVALOCYTES (NORMAL) 11/14/19 17:19 RBC Morph Micro Appear 1+ ANISOCYTOSIS (NORMAL) 1+ MACROCYTOSIS (NORMAL) 1+ POLYCHROMASIA (NORMAL) OVALOCYTES (NORMAL) 11/14/19 17:19 RBC Morph Micro Appear NORMAL APPEARANCE (NORMAL) 11/15/19 04:45 RBC Morph Micro Appear 1+ ANISOCYTOSIS (NORMAL) 11/16/19 04:45 Sodium 142 mmol/L (135-145) 11/16/19 04:45 Potassium 4.3 mmol/L (3.5-5.0) 11/16/19 04:45 Chloride 108 mmol/L (101-111) 11/16/19 04:45 Carbon Dioxide 26 mmol/L (21-32) 11/16/19 04:45 Anion Gap 8.0 (6-13) 11/16/19 04:45 BUN 18 mg/dL (6-20) 11/16/19 04:45 Creatinine 0.7 mg/dL (0.6-1.2) 11/16/19 04:45 Estimated GFR (MDRD) 113 (>89) 11/16/19 04:45 Glucose 94 mg/dL (70-100) 11/16/19 04:45 Lactic Acid 1.5 mmol/L (0.5-2.2) 11/14/19 20:01 Calcium 9.0 mg/dL (8.5-10.3) 11/16/19 04:45 Magnesium 2.4 mg/dL (1.7-2.8) 11/16/19 04:45 Total Bilirubin 0.8 mg/dL (0.2-1.0) 11/14/19 17:19 AST 52 IU/L (10-42) H 11/14/19 17:19 ALT 34 IU/L (10-60) 11/14/19 17:19 Alkaline Phosphatase 121 IU/L (42-121) 11/14/19 17:19 Total Protein 7.7 g/dL (6.7-8.2) 11/14/19 17:19 Albumin 4.2 g/dL (3.2-5.5) 11/14/19 17:19 Globulin 3.5 g/dL (2.1-4.2) 11/14/19 17:19 Albumin/Globulin Ratio 1.2 (1.0-2.2) 11/14/19 17:19 Lipase 32 U/L (22-51) 11/14/19 17:19 Urine Color YELLOW 11/14/19 22:25 Urine Clarity CLEAR (CLEAR) 11/14/19 22:25 Urine pH 5.5 PH (5.0-7.5) 11/14/19 22:25 Ur Specific [place] 1.020 (1.002-1.030) 11/14/19 22:25 Urine Protein NEGATIVE mg/dL (NEGATIVE) 11/14/19 22:25 Urine Glucose (UA) NEGATIVE mg/dL (NEGATIVE) 11/14/19 22:25 Urine Ketones NEGATIVE mg/dL (NEGATIVE) 11/14/19 22:25 Urine Occult Blood NEGATIVE (NEGATIVE) 11/14/19 22:25 Urine Nitrite NEGATIVE (NEGATIVE) 11/14/19 22:25 Urine Bilirubin NEGATIVE (NEGATIVE) 11/14/19 22:25 Urine Urobilinogen 0.2 (NORMAL) E.U./dL (NORMAL) 11/14/19 22:25 Ur Leukocyte Esterase NEGATIVE (NEGATIVE) 11/14/19 22:25 Ur Microscopic Review NOT INDICATED 11/14/19 22:25 Urine Culture Comments NOT INDICATED 11/14/19 22:25 Last Dose Date UNK 11/16/19 07:55 Last Dose Time UNK 11/16/19 07:55 Vancomycin Trough 17.6 ug/mL (10.0-20.0) 11/16/19 07:55 Urine Opiates Screen NEGATIVE (NEGATIVE) 11/14/19 22:25 Ur Oxycodone Screen POSITIVE (NEGATIVE) H 11/14/19 22:25 Urine Methadone Screen NEGATIVE (NEGATIVE) 11/14/19 22:25 Ur Propoxyphene Screen NEGATIVE (NEGATIVE) 11/14/19 22:25 Ur Barbiturates Screen NEGATIVE (NEGATIVE) 11/14/19 22:25 Ur Tricyclics Screen NEGATIVE (NEGATIVE) 11/14/19 22:25 Ur Phencyclidine Scrn NEGATIVE (NEGATIVE) 11/14/19 22:25 Ur Amphetamine Screen NEGATIVE (NEGATIVE) 11/14/19 22:25 U Methamphetamines Scrn NEGATIVE (NEGATIVE) 11/14/19 22:25 U Benzodiazepines Scrn POSITIVE (NEGATIVE) H 11/14/19 22:25 Urine Cocaine Screen NEGATIVE (NEGATIVE) 11/14/19 22:25 U Cannabinoids Screen NEGATIVE (NEGATIVE) 11/14/19 22:25 Ethyl Alcohol < 5.0 mg/dL 11/14/19 17:19 Sepsis Event Note (H) - Evaluation Current Stage of Sepsis: Sepsis - Sepsis Criteria Sepsis Criteria: Recorded Temperature greater than 38.3C or Less than 36C, Recorded Heart Rate greater than 90 bpm, WBC count greater than 12,000 or less than 4000, POLITICAL RESEARCHER: altered consciousness (unrelated to primary neuro pathology), Metabolic: lactate > 2 mmol/L
[2019-11-17] MEDS: oxyCODONE 5 MG TABLET PO PRN ×2 (05:06→11:46)
[2019-11-17] MEDS: SODIUM CHLORIDE FLUSH 0.9% 10 ML SYRINGE IVP SCH ×2 (05:14→05:40)
[2019-11-17] MEDS: CEFEPIME 2 GM in SODIUM CHLORIDE 0.9% MINIBAG 100 ML IV SCH (05:40)
[2019-11-17] MEDS: PANTOPRAZOLE 40 MG TABLET PO SCH (05:57)
[2019-11-17] MEDS: PREGABALIN 100 MG CAPSULE PO SCH (05:57)
[2019-11-17] MEDS: PREGABALIN 25 MG CAPSULE PO SCH (05:57)
[2019-11-17 06:08] LABS: BASOPHILS % (AUTO) 0.7 %; EOSINOPHILS % (AUTO) 0.7 %; HGB - HEMOGLOBIN 11.2 g/dL (14.0-18.0); LYMPHOCYTES # (AUTO) 0.9 10^3/uL (1.5-3.5); LYMPHOCYTES % (AUTO) 20.1 %; MEAN CORPUSCULAR HEMOGLOBIN 32.9 pg (27.0-31.0); MEAN CORPUSCULAR HGB CONC 31.9 g/dL (32.0-36.0); MEAN CORPUSCULAR VOLUME 103.2 fL (80.0-94.0); MEAN PLATELET VOLUME 11.4 fL (7.4-11.4); MONOCYTES # (AUTO) 0.4 10^3/uL (0.0-1.0); MONOCYTES % (AUTO) 7.9 %; NEUTROPHILS # (AUTO) 3.2 10^3/uL (1.5-6.6); NEUTROPHILS % (AUTO) 70.2 %; PLT - PLATELET COUNT 76 10^3/uL (130-450); RED CELL DISTRIBUTION WIDTH 17.2 % (12.0-15.0); WHITE BLOOD COUNT 4.6 x10^3/uL (4.8-10.8)
[2019-11-17 06:12] LABS: CREATININE 0.6 mg/dL (0.6-1.2)
[2019-11-17 07:55] VITALS: BP 133/66
--- NOTE | 2019-11-17 08:25 | Discharge Plan ---
Discharge Plan Problem Reviewed?: Yes Disposition: Home, Self Care Condition: Stable Prescriptions: atenoloL [Tenormin] 25 mg PO DAILY #30 tablet Levofloxacin [Levaquin] 500 mg PO BID #8 tablet Diet: Regular Activity Restrictions: Activity as Tolerated Shower Restrictions: No Health Concerns: You were admitted with confusion related to a high fever and very low white blood count [place] [facility] [place]. There has been no source of infection found. Urine culture are negative and all your blood cultures show no bacteria in your bloodstream at final report at 48 hours. You have been in empiric iv antibiotics in the mean time. I spoke to the Oncologist, Dr Barrientos, on-call partner of Dr. Zayas, who advised that you can be discharged home, and take just several more days of antibiotics. Please take a probiotic or drink Kefir, while on the Levofloxacin. Resume all your other pre-hospital medications and usual management EXCEPT the Atenolol dose has been significantly decreased, because the 100 mg dose drops your pulse excessively. The new prescriptions (of Atenolol 25 mg and Levofloxacin antibiotic) were electronically sent to your pharmacy. Plan of Treatment: As above. Care Goals: Improvement in symptoms and stabilization are the goals. Assessment: Patient understands. Additional Instructions or Follow Up instructions: Keep your usual appointment with your Oncologist and your PCP. If you have new or worsening symptoms, call your providers for advice or come to the ER. No Smoking: If you smoke, Please STOP! Call for help.
[2019-11-17] MEDS: FEXOFENADINE 60 MG TABLET PO SCH (08:49)
[2019-11-17] MEDS: MULTIVITAMIN TABLET PO SCH (08:49)
[2019-11-17] MEDS: SERTRALINE 50 MG TABLET PO SCH (08:49)
[2019-11-17] MEDS: ENOXAPARIN 40 MG/0.4 ML SYRINGE SUBQ SCH (08:50)
[2019-11-17] MEDS ORDERED: atenoloL 25 MG TABLET PO SCH ×2 (09:00)
--- NOTE | 2019-11-17 09:01 | DISCHARGE SUMMARY ---
Discharge Summary Admit Date: 11/14/19 Discharge Date: 11/17/19 Discharging Provider: Dr Adrianna Eagle Primary Care Provider: No PCP listed, Dr Zayas (Oncologist) Code Status: Do Not Attempt Resuscitation Condition at Discharge: Stable Discharge Disposition: 01 Home, Self Care - DIAGNOSES Admission Diagnoses: (1) Sepsis (2) Colon cancer (3) Hypertension (4) Chronic back pain (5) Anxiety (6) Depression (7) GERD Discharge Diagnoses with Status of Each Condition: See below - HPI History of Present Illness: The admission H&P of Dr. Silvano Orona: The patient is a 64 y/o male with Hx of stage IV colon cancer with mets to the lungs and liver, who presented to the ED from the [facility] clinic. He sees Dr Zayas (Oncology) and had just completed his infusion of FOLFOX today when he was noted to be acutely confused. He presented to the cancer clinic around 11 am with a normal mental status , napped through out the infusion and was encephalopathic around 3pm upon waking up and was taken to the ED. In the ED he was found to have a temp of 38.9 degree celsius, WBC of 2.2 and a lactic acid of 2.7. As a result he was presented for admission for further evaluation and treatment. - HOSPITAL COURSE Hospital Course: (1) Neutropenic fever He was handled like a neutropenic fever cancer patient with empiric broad- spectrum antibiotics, neutropenic precautions and diet. By the following day, the white blood count normalized to 8.8K, and there were no more fevers during this hospitalization. (2) Sepsis He had lactic acid elevation, tachycardia and abnormal white blood count (neutropenia) plus confusion. His mental status improved slowly. He defervesced and had no further tachycardia by the second day. He was fully cultured. The urine culture and blood cultures were all negative. He was kept on empiric antibiotics using IV cefepime and IV Vanco while awaiting culture results. These were stopped at discharge. I spoke to the on-call Oncologist, Dr Granado, covering for Dr. Zayas, who suggested that he could go home on 4 more days of empiric levofloxacin which was ordered. (3) Altered mental status There was improvement in his lucidity and decision making by the second day but he reported memory was still suboptimal. He appeared to be back to baseline on the day of discharge. (4) Hypertension His home blood pressure meds were restarted, blood pressure was under good control here. (5) Bradycardia His usual home dose of Atenolol 100 mg daily was given and HR went down to 45 bpm, therefore we decreased his Atenolol dose to 25 mg daily. (6) Colon cancer As per Hx (7) Peripheral neuropathic pain No complaints of pain in his feet or fingertips since his home meds were r estarted (8) Thrombocytopenia His Lovenox was on hold 3 days, due to plt count < 100, his daily plt counts were 72K, 75K and 76K. (9) Hematoma R elbow Unknown if this was from a blood draw. He was ordered to raise R arm on pillow with warm, moist soaks prn (10) Hx of DVT of lower extremity, on Lovenox He stated that his Oncologist preferred this management over the oral anticoagulants because of his cancer history. - ALLERGIES Allergies/Adverse Reactions: Allergies Allergy/AdvReac Type Severity Reaction Status Date / Time No Known Drug Allergies Allergy Verified 11/12/19 10:38 - MEDICATIONS Home Medications: Ambulatory Orders Medication Instructions Recorded Confirmed Sertraline [Zoloft] 150 mg PO DAILY 03/18/17 11/15/19 lisinopriL [Lisinopril] 40 mg PO DAILY 03/18/17 11/15/19 Multivitamin [Multiple Vitamins] 1 each PO DAILY 04/24/17 11/15/19 Vitamin B Complex 1 each PO DAILY 04/24/17 11/15/19 Fexofenadine HCl 180 mg PO DAILY 07/12/17 11/15/19 Oxycodone HCl 10 mg PO Q4HR PRN MDD 6 X DAY 07/24/18 11/15/19 MAXIMUM Ondansetron [Zofran Odt] 8 mg PO Q8H PRN 08/21/18 11/15/19 Omeprazole 20 mg PO DAILY 04/16/19 11/15/19 Pregabalin [Lyrica] 150 mg PO TID 05/14/19 11/15/19 Promethazine [Phenergan] 25 mg PO Q6HR PRN 09/10/19 11/15/19 Enoxaparin Sodium 0.8 ml SUBQ BID 09/24/19 11/15/19 LORazepam [Ativan] 0.5 mg PO DAILY PRN 10/10/19 11/15/19 Levofloxacin [Levaquin] 500 mg PO DAILY #4 tablet 11/17/19 atenoloL [Tenormin] 25 mg PO DAILY #30 tablet 11/17/19 - PHYSICAL EXAM AT DISCHARGE General Appearance: positive: No acute distress, Alert Eyes Bilateral: positive: Normal inspection, EOMI ENT: positive: ENT inspection nml, No signs of dehydration Neck: positive: Nml inspection, No JVD Respiratory: positive: No respiratory distress, Breath sounds nml Cardiovascular: positive: Regular rate & rhythm, No murmur Abdomen: positive: Non-tender, Nml bowel sounds, No distention Skin: positive: Color nml Extremities: positive: No pedal edema Neurologic/Psychiatric: positive: Oriented x3, Other (Non-focal) - LABS Result Diagrams: 11/17/19 05:38 11/17/19 05:38 - DIAGNOSTIC IMAGING Diagnostic Imaging Results: Final report reviewed - SEPSIS Current Stage of Sepsis: Sepsis Sepsis Criteria: Recorded Temperature greater than 38.3C or Less than 36C, Recorded Heart Rate greater than 90 bpm, WBC count greater than 12,000 or less than 4000, GRAIN PACKER: altered consciousness (unrelated to primary neuro pathology), Metabolic: lactate > 2 mmol/L - FOLLOW UP Follow Up: See PCP and/or Oncologist in the next 1-2 weeks for hospital follow-up. - TIME SPENT Time Spent in Discharge (Minutes): 45
[2019-11-17] MEDS: VANCOMYCIN INJ 1 GM in SODIUM CHLORIDE 0.9% 250 ML IV SCH (09:29)
[2019-11-17] MEDS: SODIUM CHLORIDE FLUSH 0.9% 10 ML SYRINGE IVP PRN (11:22)
== END 2019-11-17 12:05 | disposition home or self-care (01) | DRG 872 ==
LOC: ED 16:45 → MS2 18:34
PROVIDERS: ADMIT Internal Medicine; ATTEND Internal Medicine
DX: A41.9 Sepsis, unspecified organism (principal); R41.0 Disorientation, unspecified; C18.9 Malignant neoplasm of colon, unspecified; C78.00 Secondary malignant neoplasm of unspecified lung; I85.00 Esophageal varices without bleeding; I10 Essential (primary) hypertension; G93.40 Encephalopathy, unspecified; D70.9 Neutropenia, unspecified; R65.20 Severe sepsis without septic shock; R50.81 Fever presenting with conditions classified elsewhere; K21.9 Gastro-esophageal reflux disease without esophagitis; R74.0 Nonspecific elevation of levels of transaminase and lactic acid dehydrogenase [LDH]; F41.9 Anxiety disorder, unspecified; G89.29 Other chronic pain; F32.9 Major depressive disorder, single episode, unspecified; R29.703 NIHSS score 3; M54.9 Dorsalgia, unspecified; F03.90 Unspecified dementia, unspecified severity, without behavioral disturbance, psychotic disturbance, mood disturbance, and anxiety; R00.1 Bradycardia, unspecified; T44.7X5A Adverse effect of beta-adrenoreceptor antagonists, initial encounter; Y92.230 Patient room in hospital as the place of occurrence of the external cause; G62.9 Polyneuropathy, unspecified; D69.6 Thrombocytopenia, unspecified; S50.01XA Contusion of right elbow, initial encounter; X58.XXXA Exposure to other specified factors, initial encounter; M10.9 Gout, unspecified; R53.83 Other fatigue; F17.210 Nicotine dependence, cigarettes, uncomplicated; Z66 Do not resuscitate; Z79.891 Long term (current) use of opiate analgesic; Z72.89 Other problems related to lifestyle; Z79.52 Long term (current) use of systemic steroids; Z79.899 Other long term (current) drug therapy; Z51.11 Encounter for antineoplastic chemotherapy; Z51.12 Encounter for antineoplastic immunotherapy; Z90.49 Acquired absence of other specified parts of digestive tract; Z86.718 Personal history of other venous thrombosis and embolism; C78.7 Secondary malignant neoplasm of liver and intrahepatic bile duct; G62.0 Drug-induced polyneuropathy; T45.1X5S Adverse effect of antineoplastic and immunosuppressive drugs, sequela; R63.0 Anorexia; Z95.828 Presence of other vascular implants and grafts; Z51.5 Encounter for palliative care; Z93.3 Colostomy status
CPT/HCPCS: 36415; 70450; 71045; 80048; 80053; 80202; 81003; 82607; 82746; 83605; 83690; 83735; 85025; 87040; 96360; 96367; 96368; 96375; 96411; 96413; 96415; 96417; 99285; A9270; G0463; J0640; J1453; J2469; J3370; J9035; J9190; J9263; 80306; 80320; 81001; 87086; 99214

== ENCOUNTER 2019-12-02 19:20 | Outpatient (CLI) | payer MEDICARE, OTHER ==
--- NOTE | 2019-12-02 19:25 | CONSULTATION NOTE ---
Palliative Care Follow Up - Referral Referring Provider: Dr. Nydia Zayas Time of Visit: [id number] Referral setting: Home Referral Reason: CIPN/FTT/Anxiety - Information Sources Records reviewed: Previous records reviewed History/Review of Systems obtained from: Patient, Family (mother present Hodan) Exam limitations: Clinical condition (patient with some forgetfulness; gets very anxious) - History of Present Illness Update Brief HPI Update: This is a 64-year-old gentleman who continues to have complications related to his side effects of treatment, and has had recent hospitalization for sepsis. Patient with his last infusion of FOLFOX, was acutely confused, was sent to the ED as he was encephalopathy, found to have a temp of 38.9 and WBC of 2.2 and lactic acid of 2.7. He was treated with empiric broad-spectrum antibiotics, though he did not have true neutropenia, and discharged on Levaquin. Of note 2 days prior, he had severe right elbow pain, with localized bright red area, was sent to the ED at that point in time, and ruled out DVT, with a final diagnosis of concern for bleeding into that joint. Patient was scheduled for chemotherapy last Monday, he had seen the oncologist, he reports he was quite panicky, and though has been having fairly toxic side effects from his oxaliplatin, told her he would wanted to continue as he was afraid of "dying from his cancer". He showed up the next day for his treatment, with severe headache, worsening pain, difficulty walking, severe fatigue, ongoing weight loss and in discussion with deteriorating functional and cognitive status, felt like he could not accept treatment. Patient seen today in his home setting, with his mother. His mother has con cerns regarding patient's ongoing symptoms, and difficulty managing secondary to his anxiety. Patient reports his pain is worsening in his feet, can only tolerate standing for 10 to 15 minutes, is having increased numbness and difficulty with balance and stumbling. He reports his pain worsens when he walks. He now is experiencing in his hands, having more trouble with fine motor movements. He reports his headache from last week has resolved, and when asked about his oncology appointment, he felt like he "did not have a choice", but is interested in alternative treatments with less toxicity. Patient continues with weight loss, 165 today, reports no appetite, early satiety, denies nausea is spending much more time in bed, patient does present with functional decline, both related to fatigue and to pain. Patient also reporting sciatica pain in the left lower lumbar area, denies radiating down his leg, but has increased in severity. Discussion regarding his pain and symptom management, will try some time- released opioid, patient might benefit from methadone but is not reliable with his medication adherence and has made mistakes in the past so not a good candidate. He is wondering about his lovenox injections, he is taking them twice daily. He would also like to talk to oncology again, about other options and possibly taking a break. Social History - Living Situation Living arrangement: At home Living Situation: With family Support System: Patient lives with elderly mother, who also has significant health problems. They "prop each other up". She does though most recently provide more oversight and care for him, with his increased anxiety and worsening forgetfulness. They do have a lot of financial stressors, they no longer have transportation, and she does get quite anxious regarding his ongoing sequela of health issues and complications. Patient does have a son in [place], who is been up recently to visit. Otherwise they are quite isolated, [place] a complex relationship and he is hesitant to ask for much support from her. Medications/Allergies - Medications Home Medications: Ambulatory Orders Medication Instructions Recorded Confirmed Sertraline [Zoloft] 150 mg PO DAILY 03/18/17 12/03/19 lisinopriL [Lisinopril] 40 mg PO DAILY 03/18/17 12/03/19 Multivitamin [Multiple Vitamins] 1 each PO DAILY 04/24/17 12/03/19 Vitamin B Complex 1 each PO DAILY 04/24/17 12/03/19 Fexofenadine HCl 180 mg PO DAILY 07/12/17 12/03/19 Oxycodone HCl 5 mg PO Q3HR PRN 07/24/18 12/03/19 Ondansetron [Zofran Odt] 8 mg PO Q8H PRN 08/21/18 12/03/19 Omeprazole 20 mg PO DAILY 04/16/19 12/03/19 Pregabalin [Lyrica] 150 mg PO TID 05/14/19 12/03/19 Promethazine [Phenergan] 25 mg PO Q6HR PRN 09/10/19 12/03/19 Enoxaparin Sodium 0.8 ml SUBQ BID 09/24/19 12/03/19 LORazepam [Ativan] 0.5 mg PO DAILY PRN MDD 1 tab 10/10/19 12/03/19 atenoloL [Tenormin] 25 mg PO DAILY #30 tablet 11/17/19 12/03/19 Morphine Sulfate [Morphine Sulfate 15 mg PO TID 12/03/19 12/03/19 ER] - Allergies Allergies/Adverse Reactions: Allergies Allergy/AdvReac Type Severity Reaction Status Date / Time No Known Drug Allergies Allergy Verified 11/26/19 10:36 Review of Systems - Constitutional Constitutional: reports: Fatigue, Poor appetite, Weight loss (165). denies: Fever, Chills - Eyes Eyes: reports: Vision loss, Corrective lenses - Ears, Nose & Throat Ears, Nose & Throat: reports: Hearing loss, Hearing aids, Nasal congestion, Dental decay, Dry mouth - Cardiovascular Cardiovascular: reports: Decr. exercise tolerance - Respiratory Respiratory: reports: Cough (improved), SOB with exertion. denies: SOB at rest - Gastrointestinal Gastrointestinal: reports: Nausea (intermittent), Poor appetite, Other (colostomy) - Genitourinary Genitourinary: reports: Frequency - Musculoskeletal Musculoskeletal: reports: Back pain ("new sciatica" left hip/lumbar area attributes to more time in bed), Muscle aches, Stiffness, Limited range of motion, Muscle weakness, Joint pain - Integumentary Integumentary: reports: Dryness - Neurological Neurological: reports: General weakness, Headache (improved this week off chemo), Memory problems, Abnormal gait - Psychiatric Psychiatric: reports: Depression, Anxiety - Hematologic/Lymphatic Hematologic/Lymphatic: reports: Blood clots (on lovenox 80 mg BID; wondering if can change to daily dosing), Recurrent infections - All Other Systems All Other Systems: reports: Reviewed and negative Physical Exam - Vital Signs Temperature: 97.0 C Pulse Rate: 60 Respiratory Rate: 18 O2 Saturation: 96 (ra @ rest) Blood Pressure: 112/62 (sitting 102/64 standing) - Physical Exam General Appearance: positive: Moderate distress, Anxious, Cachetic Eyes Bilateral: positive: No scleral icterus ENT: positive: Other (poor dentition;) Neck: positive: No JVD, Trachea midline Cardiovascular: positive: Regular rate & rhythm Respiratory: positive: No respiratory distress, Diminished in bases. negative: Wheezes, Rales, Rhonchi Abdomen: positive: Non-tender, Soft, Other (large abdominal hernia) Skin: positive: Pallor, Dryness, Bruising Extremities: positive: No pedal edema, Other (right arm and elbow insulation board back tender/ no swelling or bruising noted; gait wide stanced and abdnormal) Neurologic/Psychiatric: positive: Oriented x3, Mood/affect nml, Weakness Palliative Care - POLST Patient has POLST: Yes POLST Status: DNR, Selective Treatment Pain: Pain worsening, Location (see HPI) Tiredness/Fatigue: Severe (7-10) Drowsiness/Sedation: Moderate (4-6) (worsens with peak of opioids) Nausea: Mild (1-3) Anorexia: Severe (7-10), Weight loss Dyspnea: Moderate (4-6) Depression: Moderate (4-6) Anxiety: Severe (7-10) Feelings of wellbeing/Perceived Quality of Life: Fair Sleep: Variable sleep pattern Constipation: No Performance Status: Patient has had a decline in his functional status, he is spending most the time in bed, this is a combination of fatigue and pain. He is more comfortable laying flat particularly with his back pain. He and his mother share meal prep, though she is needed to do more recently. They are doing mostly frozen meals. Patient is able to manage his ADLs. I would put him at a PPS of 60% and today pushing an ECOG 3. - Palliative Care Discussion: Patient has been treated since March 2017, he is becoming somewhat weary. His original understanding was his prognosis was 2 to 5 years, he is coming up on 3 years and wondering about his upcoming life expectancy. Patient is wanting to know when he gets within "2 years", as he plans to travel and ask his family for some money for his "bucket list", and anxious to not miss this window, he would want to still feel good enough to travel but feels his dad would see this a valid. Patient has been having increased anxiety, he has had hospitalizations the last few months including his PEs, hospitalization recently for sepsis, several ED visits for altered mental status. Patient has had progressive pain, and declining both functional and cognitive status. He is feeling somewhat overwhelmed, and admits he easily panics. His goals are to "recover" some, though he is pragmatic about his diagnosis at times, most often is anxious. He lives with his mother, needing more assistance and worries about her health and being a burden. He does have his advanced care planning documents done including a POLST with DO NOT RESUSCITATE and Selective treatments, willing to accept hospitalization for reversible conditions, his son is his DPOA. Results - Lab Results Lab results reviewed: Yes Lab and Imaging Results: CEA increased to 6.3 11/25 was 3.7 10/21 Impression and Recommendations - Palliative Care Impression: This is a anxious 64-year-old gentleman with metastatic colon cancer, with liver mets, with most recent scan showing decreased lesion in his hepatic dome, 10/09/2019. 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 Patient declined treatment, last week despite originally saying yes to oncologist. He does present with fatigue, and severe anxiety over his cancer diagnosis and prognosis. Palliative care meeting with patient today, to review current plan of care, titrate pain medications, and assuage anxiety. Recommendations/Counseling Done: 1. 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 Patient currently on maximum dose of Lyrica 150 mg 3 times daily. Patient has tried discontinuing previously, with exacerbation of pain and withdrawal symptoms. Instructed to continue at this point in time, does not perceive as of effective, suspect worsening pain underlying etiology. Patient has been using oxycodone 10 mg 4-5 times a day, patient's worst pain is first thing in the morning, takes to 10 mg tabs to take "the edge off". Patient does get sedation from his oxycodone, then tends to sleep. Discussed regarding transitioning to time- released, given his insurance will do morphine 15 mg 3 times daily, reviewed this is equal analgesic at this point in time. Will use oxycodone 5 to 10 mg for breakthrough pain, and record. We will titrate accordingly. Mother who helps oversee his meds, written instructions were provided, and reviewed regimen as well as rationale. Patient would like referral to a spinal specialist, he is hoping for an injection for his lower back pain. He perceives it as "sciatica". He has received injections for his carpal tunnel with good relief. Patient will get me the name and number of whom he would like, his PCP is changing and feels this is more urgent. 2. Weight loss. This is multifactorial in origin. Patient with severe taste changes, early satiety, intermittent nausea. He reports no appetite, has not found anything that has been of help. We will follow-up with oncology, would like to trial short term dexamethasone to give him a boost. Plan is not for long-term management. 3. Fatigue. This is multifactorial in origin, patient most recently hospitalized for sepsis, is experiencing increased pain, poor sleep, fatigue, and increasing anxiety. He has been meeting with the palliative care pediatric social worker, has been referred to physical therapy but does not feel concurrently tolerated. He has been recommended to increase his activity for short duration and short distance, continues not be able to do this. 4. Anti-coag therapy for history of PEs. Patient currently on Lovenox 80 mg twice daily, wondering about transitioning to 1 time a day dosing, also worried about the ongoing cost. Patient has many financial stressors. Will follow up with oncology regarding recommendations. 5. Anxiety. Patient has been having escalating anxiety, when he has "a panic attack" he is using lorazepam intermittently maybe 1-2 x a week. Provided to normalize his anxiety, part of it is he is "waiting for the other shoe to drop", is afraid of dying, but also is not perceiving his current quality of life is acceptable. Counseling provided regarding follow-up with oncology, if other treatment regimens or taking a break. Patient does have slight elevation in CEA. Patient also has some "bucket list" wishes, he feels he cannot access until he is within his two-year prognosis. He really would like this information if available. 6. Advanced care planning. Patient has limited social support, is very dependent on his mother whose in frail health and in her 80s. Patient is needing more assistance because of his short-term memory issues, and tracking. Patient does have D POA who is his son though he lives in [place], and has a POLST completed. Time Spent: 60 minutes with greater than 50% of this done in counseling regarding normalizing grief and fear, counseling provided regarding pain and symptom management, agreed to facilitate coordination of care with oncology regarding patient's questions and concerns.
== END 2019-12-02 19:21 | disposition home or self-care (01) ==
LOC: PC 19:20
PROVIDERS: ATTEND Nurse Practitioner Adult Health
DX: Z51.5 Encounter for palliative care (principal); G62.0 Drug-induced polyneuropathy; T45.1X5A Adverse effect of antineoplastic and immunosuppressive drugs, initial encounter; F41.9 Anxiety disorder, unspecified; R63.4 Abnormal weight loss; R63.0 Anorexia; R68.81 Early satiety; R53.83 Other fatigue; M54.5 Low back pain; C18.9 Malignant neoplasm of colon, unspecified; C78.7 Secondary malignant neoplasm of liver and intrahepatic bile duct; Z79.899 Other long term (current) drug therapy; Z79.891 Long term (current) use of opiate analgesic; Z79.01 Long term (current) use of anticoagulants; Z86.711 Personal history of pulmonary embolism; Z59.9 Problem related to housing and economic circumstances, unspecified; Z66 Do not resuscitate
CPT/HCPCS: 99350

== ENCOUNTER 2020-01-15 14:00 | Outpatient (CLI) | payer MEDICARE, OTHER ==
--- NOTE | 2020-01-15 17:17 | CONSULTATION NOTE ---
Palliative Care Follow Up - Referral Referring Provider: Dr. Nydia Zayas Time of Visit: [id number] Referral setting: Other (. TELEMEDICINE VISIT Telemedicine this is a documentation of a distant site telemedicine encounter. I conducted this encounter from my office via live [id number] video conference with the patient. Prior to the interview, the risk and benefits of telemedicine were discussed with the patient and verbal consent was obtained.) Referral Reason: Pain of neoplastic Origin/Anxiety/Met Colon CA - Information Sources Records reviewed: Previous records reviewed History/Review of Systems obtained from: Patient Exam limitations: No limitations - History of Present Illness Update Brief HPI Update: This is a 64-year-old gentleman with metastatic colon cancer with mets to lung, has had his chemotherapy on hold, was having severe peripheral neuropathy secondary oxaliplatin, headache, severe fatigue, and worsening quality of life. It has been on hold now for a couple months, he is feeling better, has gained back some weight, has more energy and has had a reduction in his pain. He is currently on MS Contin 15 mg 3 times daily, is finding he only needs to use oxycodone about 2 times a day. He is also continued on the Lyrica 150 mg 3 times daily. His peripheral neuropathy pain, has improved, his abdominal pain is well controlled. What has exacerbated his actually his back pain. He describes it in the upper lumbar area, had seen his PCP, and had been made a referral to physical therapy. Patient reports the severity is such when he stands, he cannot stand for long periods of time without sitting or laying down. He reports the pressure builds up, and works up to a full 9-10 over 10. With the intensity, it has kept him mostly on his back. His other area of pain, is in his right arm, he reports he feels like it is "deep in his bones". He is able to demonstrate range of motion, but increased pain with abduction over his head. Patient has had chronic back pain in the past, denies any back spasms. Has had a couple falls, but no acute injury. Does report this is increased over time, and now has become more unbearable, that is why he is taking his oxycodone. He is trying to get a referral to a spinal specialist, did discuss in the context of his metastatic cancer, though not common, should rule out metastatic disease. Patient is scheduled to see Dr. Miller, will follow-up as he is a [facility] patient for recommendations for scanning. Patient has done pretty well as far as staying at home. He has gone shopping, and taking his mother to the doctor. He does understand the seriousness of his illness his risk regarding coronavirus. His anxiety is pretty well controlled, has not had any recent panic attacks. He does feel better overall, and has enjoyed the break from treatment. He does worry about his mother who is quite elderly and having ongoing health problems. He reports he is eating better, has had no further weight loss, and has been coping with the isolation fairly well. Reports they are watching movies, does face time with friends and family, is lottie y disappointed he is not going to get to go on his trip to [place]. Patient's past medical history includes hypertension, PEs/DVT, depression anxiety. Patient's original diagnosis with stage IV colon cancer was in 2016, when he underwent a colectomy with colostomy, abdominal hernia. Social History - Living Situation Living arrangement: At home Living Situation: With family Support System: Patient lives at home with his elderly mother, she does try and support him, they report they are holding each other up. She has significant health problems as well. They do have a lot of financial stressors, patient has a son in [place]. They are fairly isolated, [place]. Patient most recently ran into some trouble with insurance, has signed up for [employer], which is started today. Medications/Allergies - Medications Home Medications: Ambulatory Orders Medication Instructions Recorded Confirmed Sertraline [Zoloft] 150 mg PO DAILY 03/18/17 01/16/20 lisinopriL [Lisinopril] 40 mg PO DAILY 03/18/17 01/16/20 Multivitamin [Multiple Vitamins] 1 each PO DAILY 04/24/17 01/16/20 Vitamin B Complex 1 each PO DAILY 04/24/17 01/16/20 Fexofenadine HCl 180 mg PO DAILY 07/12/17 01/16/20 Oxycodone HCl 5 mg PO Q3HR PRN 07/24/18 01/16/20 Ondansetron [Zofran Odt] 8 mg PO Q8H PRN 08/21/18 01/16/20 Omeprazole 20 mg PO DAILY 04/16/19 01/16/20 Pregabalin [Lyrica] 150 mg PO TID 05/14/19 01/16/20 Promethazine [Phenergan] 25 mg PO Q6HR PRN 09/10/19 01/16/20 Enoxaparin Sodium 0.8 ml SUBQ BID 09/24/19 01/16/20 LORazepam [Ativan] 0.5 mg PO DAILY PRN MDD 1 tab 10/10/19 01/16/20 atenoloL [Tenormin] 25 mg PO DAILY #30 tablet 11/17/19 01/16/20 Morphine Sulfate [Morphine Sulfate 15 mg PO TID 12/03/19 01/16/20 ER] - Allergies Allergies/Adverse Reactions: Allergies Allergy/AdvReac Type Severity Reaction Status Date / Time No Known Drug Allergies Allergy Verified 12/10/19 11:29 Review of Systems - Constitutional Constitutional: reports: Fatigue (improved), Weight stable (167). denies: Fever, Chills - Eyes Eyes: reports: Vision loss, Corrective lenses - Ears, Nose & Throat Ears, Nose & Throat: reports: Dry mouth - Cardiovascular Cardiovascular: reports: Decr. exercise tolerance. denies: Chest pain, Edema, Lightheadedness - Respiratory Respiratory: reports: Cough (productive brown sputum/baseline;), SOB with exertion, Other (patient continues to smoke; with boredom admits to up to 1/2 pack a day). denies: SOB at rest - Gastrointestinal Gastrointestinal: reports: Good appetite, Other (colostomy functioning well). denies: Nausea, Reflux/heartburn - Musculoskeletal Musculoskeletal: reports: Back pain (increasing severity), Muscle aches, Stiffness, Limited range of motion (right arm), Muscle weakness - Integumentary Integumentary: reports: Dryness - Neurological Neurological: reports: General weakness, Abnormal gait (related to peripheral neuropathy) - Psychiatric Psychiatric: reports: Anxiety (improved; using lorazepam about 2x a week; some cannibas at bedtime). denies: Depression - Hematologic/Lymphatic Hematologic/Lymphatic: denies: Recurrent infections - All Other Systems All Other Systems: reports: Reviewed and negative Physical Exam - Physical Exam General Appearance: positive: Alert Eyes Bilateral: positive: Normal inspection ENT: positive: No signs of dehydration Neck: positive: Trachea midline Respiratory: positive: No respiratory distress (with converation or ambulation) Abdomen: positive: Distended (not worse than baseline; has hernia) Skin: positive: Pallor, Dryness Extremities: positive: Pedal edema (reports mild on his exam and report) Neurologic/Psychiatric: positive: Oriented x3, Mood/affect nml Palliative Care - POLST Patient has POLST: Yes POLST Status: DNR, Selective Treatment Pain: Pain worsening, Location (see hPI but back pain) Tiredness/Fatigue: Moderate (4-6) Drowsiness/Sedation: Mild (1-3) Nausea: None Anorexia: None Dyspnea: Mild (1-3) Depression: Mild (1-3) Anxiety: Moderate (4-6) Feelings of wellbeing/Perceived Quality of Life: Good, Acceptable, Improved Sleep: Sleeps well Constipation: No Performance Status: Patient's activity status mostly impacted by his back pain. He is much more comfortable laying prone, and has been fairly isolated regarding stay at home. He is able to manage his own ADLs, he reports he is up cooking more, is doing the dishes this is much improvement from his downward spiral last month. - Palliative Care Discussion: Patient is quite disappointed not able to travel, he had been hoping with his time that he was feeling better and off chemo he would be able to go to [place] to see his uncle. He does understand the seriousness of the coronavirus, and that he would "kill me" if he were to get it. He is working hard to not expose himself, "I am hiding". Patient denies increased depression, though he is somewhat distressed with the worsening back pain. Physical therapy was the fi rst step for PCP, he would like to get some kind of injection. We did discuss in the context actually if it was bony mets, there are treatments such as radiation though it is a rare place for colon cancer to spread. He has been feeling like his mood is been good, and been able to do more activities he is enjoyed. Though he does admit to boredom, and unfortunately increased in his smoking. He denies he is drinking, and is using cannabis at night only to sleep. Patient does have POLST with DNAR/Selectivie [place] (DNI). He is quite pragmatic, though doesn't want to and hoping for some time to enjoy traveling. Impression and Recommendations - Palliative Care Impression: This is an anxious 64-year-old gentleman with metastatic colon cancer with known liver mets, currently on hold from his FOLFOX 6 secondary to severe peripheral neuropathy due to oxaliplatin. He is feeling much better, with improvement of his neuropathy, resolution of headaches, improved fatigue, and has had improvement in mood. Patient's overall pain is well managed on current regimen, though now presents with worsening back pain that is impacting mobility and quality of life. Palliative care providing support for pain and symptom management, and anticipatory guidance. Recommendations/Counseling Done: 1. 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 Patient is on maximum dose of Lyrica 150 mg 3 times daily, with the addition of long-acting opioid has had improvement as well as hiatus from his therapy. Patient has had some improvement with his numbness and though remains at high risk for falls from balance. 2. Back pain. This is multifactorial, concerned though given progressive nature without known underlying etiology or trauma. Patient does have intermittent chronic back pain, has been spending more time in bed, but does feel exponentially the pain has continued to increase. He had seen his PCP, with recommendation for referral to physical therapy, unfortunately unable to follow through with this with [facility]. We will follow-up with oncology, does seem prudent to rule out bony mets. Patient would like referral to spinal specialist, unfortunately suspect this might be delayed, he is doing research on where he would like that referral to go. 3. Weight loss. Patient is remained stable for the last few weeks, at 167. He is cooking for himself, the taste changes have improved, he is doing better with his intake. 4. Tobacco abuse. Patient has increased his smoking, continues with productive cough concern related to not only his lung mets but also past history of PEs. Patient does this out of boredom, counseling and suggestion of alternative activities, and setting of goal to cut down. 5. Anxiety. Patient actually doing fairly well given his fluctuating moods, he has settled in. He feels supported, lives with his mother and they have gotten somewhat of a routine, he is staying connected with his son and family using FaceTime. Patient is feeling better with his break from treatment. He does of course remain quite anxious regarding concerns for his cancer, he would like the oncologist to share at the point they feel he has less than 2 years, as he has "a bucket list" though this includes travel which is not realistic at this time. 6. Advanced care planning. Patient does have limited social support, is very dependent on his mother who is frail health and in her 80s. His D POA is his son Mohsen Henderson [phone]. He does understand the seriousness of his illness is well asked if he were to become ill with the coronavirus. He is quite clear he has a DNA R/DNI, but would accept treatment or support to improve his chances of a good outcome but this would not include ventilator. Time Spent: 45 minutes with greater than 50% of this done in counseling regarding pain and symptom management, addressing concerns and anxieties, and anticipatory guidance. Will reach out to oncology as he is pending visit if prudent to follow-up on work-up for rule out bony mets, he is scheduled to see Dr. Miller next.
== END 2020-01-15 14:01 | disposition home or self-care (01) ==
LOC: PC 14:00
PROVIDERS: ATTEND Nurse Practitioner Adult Health
DX: Z51.5 Encounter for palliative care (principal); G89.3 Neoplasm related pain (acute) (chronic); G62.0 Drug-induced polyneuropathy; T45.1X5S Adverse effect of antineoplastic and immunosuppressive drugs, sequela; M54.5 Low back pain; F17.210 Nicotine dependence, cigarettes, uncomplicated; R53.83 Other fatigue; R63.4 Abnormal weight loss; F41.9 Anxiety disorder, unspecified; C18.9 Malignant neoplasm of colon, unspecified; C78.7 Secondary malignant neoplasm of liver and intrahepatic bile duct; Z79.899 Other long term (current) drug therapy; Z79.891 Long term (current) use of opiate analgesic; Z66 Do not resuscitate

== ENCOUNTER 2020-02-04 09:07 | Outpatient (CLI) | payer MEDICARE ==
[2020-02-04] MEDS ORDERED: IOVERSOL 320 50 ML VIAL ONE (09:18)
[2020-02-04] MEDS ORDERED: IOVERSOL 320 100 ML VIAL IVP ONE ×2 (09:18→15:28)
[2020-02-04] MEDS ORDERED: IOVERSOL 320 50 ML VIAL PO ONE (15:28)
--- NOTE | 2020-02-04 17:08 | Nuclear Medicine Report ---
Reason: MALIGNANT NEOPLASM OF COLON Procedure Date: 02/04/2020 Accession Number: [id number] / [id number] Procedure: NM - Bone Whole Body CPT Code: Final Report FULL RESULT: EXAM: BONE SCAN EXAM DATE: 02/04/2020 01:19 PM. CLINICAL HISTORY: Malignant neoplasm of colon. COMPARISON: ABDOMEN/PELVIS W 02/04/2020 10:54 AM. ABDOMEN/PELVIS W/ 12/12/2019 1:38 PM. TECHNIQUE: Following the intravenous administration of 32.6 mCi of technetium 99m MDP and an appropriate delay, a whole-body scan was performed in anterior and posterior projections. Site-specific spot views of the region of interest were obtained in various projections. FINDINGS: Exam Quality: Normal overall osseous radiotracer uptake. Physiological tracer uptake in bilateral collecting systems. Skull: No focal uptake. Thorax: There is focal intensely increased tracer uptake in the right anterior eighth, ninth, and tenth ribs corresponding with healing fractures on CT. No abnormal increased uptake in the sternum. Pelvis: No focal lesions. Spine: There are foci of presumed degenerative facet uptake in the cervical spine and in left lower lumbar spine. There is increased tracer uptake on the left side of L2 corresponding with a lytic lesion on CT. Extremities: Foci of increased uptake at the base of thumbs and in the mid feet are most consistent with degenerative etiology. IMPRESSION: 1. There is a lesion on the left side of L2 consistent with a metastasis. 2. No other findings highly suspicious for metastatic disease. RADIA
--- NOTE | 2020-02-04 17:50 | CT Report ---
Reason: MALIGNANT NEOPLASM OF COLON Procedure Date: 02/04/2020 Accession Number: [id number] / [id number] Procedure: CT - Abdomen/Pelvis W CPT Code: Final Report FULL RESULT: EXAM: CT ABDOMEN AND PELVIS EXAM DATE: 02/04/2020 11:02 AM. CLINICAL HISTORY: MALIGNANT NEOPLASM OF COLON. COMPARISONS: ABDOMEN/PELVIS W/ 12/12/2019 1:38 PM ABDOMEN/PELVIS W/ 10/09/2019 8:24 PM ABDOMEN/PELVIS W/ 02/28/2019 1:31 PM. TECHNIQUE: Routine helical CT imaging was performed through the abdomen and pelvis. IV contrast: 100 cc of Optiray 320. Enteric contrast: Positive. Reconstructions: Coronal and sagittal. In accordance with CT protocol optimization, one or more of the following dose reduction techniques were utilized for this exam: automated exposure control, adjustment of mA and/or KV based on patient size, or use of iterative reconstructive technique. FINDINGS: Lung Bases: Right middle lobe lobular nodular opacity again seen measuring 6.5 mm, image 2 series 3, previously by my measurement 5 mm. Right lower lobe nodules are again seen, the largest measuring 15 mm on image 1, series 3 previously by my measurement measured up to 11 mm and also in the right lower lobe is a 10 mm nodule on image 6, series 3 previously measured 7 mm. Left lower lobe nodules are also seen, the largest in the medial left lower lobe measuring 10 mm image 5, series 3, previously measured up to 7 mm. No pleural effusions. Heart size is stable. Tiny hiatal hernia. Liver: Eterogeneous lesion in segment 8 of the liver on image 9 series 3 now measures 39 x 31 mm, previously 30 x 21 mm. Vascular lesions in the left and right lobe are again most likely representing hemangiomas in her stable. Additionally, increase in size of segment 8/7 lesion on image 13 series 3 measuring 18 x 14 mm, previous by my measurement 13 x 10 mm. Gallbladder/Bile Ducts: Gallstone again seen in the gallbladder. No biliary ductal dilatation. Spleen: Normal. Pancreas: Pancreatic parenchymal volume loss. No peripancreatic edema or pancreatic ductal dilatation. Adrenal Glands: Normal. Kidneys: No hydronephrosis. Nonobstructing lower pole left renal 2 mm calculus. Bilateral renal low-attenuation lesions in the largest in the left kidney measuring 17 mm, stable. No hydronephrosis. Peritoneal Cavity/Bowel: Stomach is mild to moderately distended and unremarkable. No small bowel obstruction. Contrast is present throughout the majority of the small bowel. Changes are seen from partial colectomy. Residual distal colon noted with diverticula in the sigmoid colon and a moderate to large volume of stool in the lower rectum. There is a right mid abdominal ostomy with a prominent parastomal hernia containing portions of the proximal colon and distal small bowel. No entrapment is seen. No extravasation of contrast. Appendix is seen and is normal and is present within the parastomal hernia. High density within the left anterior abdominal wall subcutaneous tissues likely due to subcutaneous injection or instrumentation. Umbilical hernia again seen containing a loop of small bowel without entrapment or focal thickening. Pelvic Organs: Urinary bladder is mildly distended and unremarkable. High density is present within the anterior lower abdominal wall subcutaneous tissues which may be due to injection or instrumentation. Vasculature: Vascular calcifications. No aneurysm. Mesenteric vasculature is patent. Bones: Degenerative changes of the lower thoracic and lumbar spine. Degenerative changes of both hip joints. Lytic lesion involving the left lateral aspect of L2 is seen with progression compared to 12/12/2019. No acute osseous abnormalities. Lumbar facet arthropathy. Other: None. IMPRESSION: 1. Interval progression of disease with increase in size of the visualized lower lung nodules, hepatic lesions and L2 vertebral body lytic lesion compared to 12/12/2019. 2. Status post partial colectomy, stable. Parastomal hernia along the right mid abdominal colostomy containing the proximal colon, appendix and distal small bowel without significant change. 3. Hypervascular lesions in liver again seen likely representing hemangiomas. 4. Bilateral renal cysts, stable. Nonobstructing left renal calculus. 5. Cholelithiasis. RADIA
== END 2020-02-04 09:08 | disposition home or self-care (01) ==
LOC: DI 09:07
PROVIDERS: ATTEND Internal Medicine Hematology & Oncology
DX: C18.9 Malignant neoplasm of colon, unspecified (principal); C78.7 Secondary malignant neoplasm of liver and intrahepatic bile duct; M89.9 Disorder of bone, unspecified; R91.8 Other nonspecific abnormal finding of lung field; K43.5 Parastomal hernia without obstruction or gangrene; Z90.49 Acquired absence of other specified parts of digestive tract; Q61.02 Congenital multiple renal cysts; K80.20 Calculus of gallbladder without cholecystitis without obstruction
CPT/HCPCS: 74177; 78306; Q9967

== ENCOUNTER 2020-02-13 05:34 | Outpatient (CLI) | payer MEDICARE | END 2020-02-13 05:35 | disposition short-term general hospital (02) | LOC: EMS 05:34 | PROVIDERS: ATTEND Surgery | DX: M54.5 Low back pain (principal); R10.9 Unspecified abdominal pain; R25.2 Cramp and spasm | CPT/HCPCS: A0425; A0427 ==

== ENCOUNTER 2020-03-10 11:38 | Outpatient (CLI) | payer MEDICARE ==
--- NOTE | 2020-03-10 17:57 | CONSULTATION NOTE ---
Palliative Care Follow Up - Referral Referring Provider: Dr. Nydia Zayas Time of Visit: Referral setting: [facility] [place] Referral Reason: Pain of neoplastic origin/Anorexia/Met Colon CA - Information Sources Records reviewed: Previous records reviewed History/Review of Systems obtained from: Patient Exam limitations: No limitations - History of Present Illness Update Brief HPI Update: This is a 64-year-old gentleman with metastatic colon cancer with mets to the lung, liver, and bone. He is recently been on a break, related to severe peripheral neuropathy secondary to accept [place], headache, and severe fatigue. He had an exacerbation of his back pain, on further examination he did have a met to L2. He is just finished 10 radiation treatments. He reports that has improved pain in that area, but now reports some worsening pain higher up to the right of the thoracic area. Patient is currently on fentanyl 50 mcg patch, he has consistently used his oxycodone 10 mg tabs around 5 a day, 6 if he has been more active. He does not perceive this is changing, as we discussed moving his fentanyl up, he feels more secure using oxycodone given he feels like it "works" at that point in time. He is satisfied overall with his back and lower abdominal pain managed, but his feet continue to be fairly severe. He has requested to consider titration off of pregabalin, we have tried this a couple times before, with worsening peripheral neuropathy. Patient has short-term memory issues, and has forgotten this, but will trial given patient's request. He is off his chemotherapy currently, his next plan is for radiation to his liver mets, he is getting evaluated for Y 92 interventional radiology. The other symptoms he presents with today is worsening vision changes, denies these are acute in nature. Feels like he needs a new prescription with his glasses, his headaches though have improved. His other significant symptom has been his decrease in appetite, he has had a 6 pound weight loss over the month, he denies nausea, just early satiety and does not feel like eating. He has been instructed to increase his protein shakes, he had been getting 1 a day, discussed increasing this to 2 a day. Patient's past medical history includes hypertension, PE/DVT on Lovenox. Depression, anxiety, patient's original diagnosis with stage IV colon cancer was in 2017, at which time he underwent a colectomy with colostomy, and his persistent worsening abdominal hernia. Social History - Living Situation Living arrangement: At home Living Situation: With family Support System: He and his mother rent a house together, his mother actually has been the support/caregiver for him. He reports she is talking a lot more about , and does see that she is getting more frail and most likely may proceed him. We did discuss what kind of support he was going to need, he has not done any kind of applications regarding [place]. He is willing to talk to the medical social worker again, patient's mother has wished for some support as well and supporting her son. Patient has somewhat of a colorful history, he reports currently he is getting along well with his sister. His son who is from [place], currently in school was up for 10 days and he very much enjoyed that visit. Medications/Allergies - Medications Home Medications: Ambulatory Orders Medication Instructions Recorded Confirmed Sertraline [Zoloft] 150 mg PO DAILY 03/18/17 03/10/20 lisinopriL [Lisinopril] 40 mg PO DAILY 03/18/17 03/10/20 Multivitamin [Multiple Vitamins] 1 each PO DAILY 04/24/17 03/10/20 Vitamin B Complex 1 each PO DAILY 04/24/17 03/10/20 Fexofenadine HCl 180 mg PO DAILY 07/12/17 03/10/20 Oxycodone HCl 5 - 10 mg PO Q3HR PRN 07/24/18 03/10/20 Ondansetron [Zofran Odt] 8 mg PO Q8H PRN 08/21/18 03/10/20 Omeprazole 20 mg PO DAILY 04/16/19 03/10/20 Pregabalin [Lyrica] 150 mg PO BID 05/14/19 03/10/20 Promethazine [Phenergan] 25 mg PO Q6HR PRN 09/10/19 03/10/20 Enoxaparin Sodium 0.8 ml SUBQ BID 09/24/19 03/10/20 LORazepam [Ativan] 0.5 mg PO DAILY PRN MDD 1 tab 10/10/19 03/10/20 atenoloL [Tenormin] 25 mg PO DAILY #30 tablet 11/17/19 03/10/20 fentaNYL [Fentanyl 50mcg patch] 50 mcg TOP DAILY 03/10/20 03/10/20 - Allergies Allergies/Adverse Reactions: Allergies Allergy/AdvReac Type Severity Reaction Status Date / Time No Known Drug Allergies Allergy Verified 03/10/20 11:49 Review of Systems - Constitutional Constitutional: reports: Fatigue, Weight loss (160-7 pounds over the month). denies: Fever, Chills - Eyes Eyes: reports: Vision loss, Corrective lenses (worsening) - Ears, Nose & Throat Ears, Nose & Throat: reports: Hearing loss, Hearing aids, Postnasal drainage, Dry mouth. denies: Mouth lesions - Cardiovascular Cardiovascular: reports: Decr. exercise tolerance. denies: Chest pain - Respiratory Respiratory: reports: SOB with exertion. denies: Cough, SOB at rest - Gastrointestinal Gastrointestinal: reports: Poor appetite. denies: Abdominal pain, Constipation (has colostomy), Nausea, Reflux/heartburn - Musculoskeletal Musculoskeletal: reports: Stiffness, Muscle weakness - Integumentary Integumentary: reports: Dryness - Neurological Neurological: reports: General weakness, Headache (intermittent), Memory problems - Psychiatric Psychiatric: reports: Depression, Anxiety - Hematologic/Lymphatic Hematologic/Lymphatic: reports: Blood clots (on lovenox for hx of DVT/PE). denies: Recurrent infections - All Other Systems All Other Systems: reports: Reviewed and negative Physical Exam - Vital Signs Pulse Rate: 62 Respiratory Rate: 18 Blood Pressure: 129/87 - Physical Exam General Appearance: positive: No acute distress, Alert, Anxious Eyes Bilateral: positive: Conjunctivae nml ENT: positive: No signs of dehydration Neck: positive: Trachea midline Cardiovascular: positive: Regular rate & rhythm Respiratory: positive: No respiratory distress Abdomen: positive: Soft, Other (colostomy more protrubent with weight loss) Skin: positive: Pallor, Dryness Extremities: positive: No pedal edema, Other (gait ataxic attributes to pain/numbness) Neurologic/Psychiatric: positive: Oriented x3, Mood/affect nml Palliative Care - POLST Patient has POLST: Yes POLST Status: DNR, Selective Treatment Pain: Pain worsening, Pain improved (see HPI), Location Tiredness/Fatigue: Severe (7-10) Drowsiness/Sedation: None Nausea: None Anorexia: Severe (7-10), Weight loss (6 pounds one month) Dyspnea: Mild (1-3) Depression: Mild (1-3) Anxiety: Mild (1-3) Feelings of wellbeing/Perceived Quality of Life: Good, Acceptable, Improved Sleep: Variable sleep pattern Constipation: No Performance Status: Patient reports he is quite sedentary, though when his son was visiting they did walk about and do more. Reports some of this is "laziness", he does need to be more active, but this often exacerbates his pain. He is able to manage his own ADLs, he is currently without transportation though most likely with his opioid use should not be driving. - Palliative Care Discussion: Patient continues to be quite anxious around his diagnosis, he is wanting both quality and quantity of life, though he does understand the seriousness of his illness and that his treatment is palliative in nature. He had been hoping to travel some, though this at this point is limited with COVID-19 and also his financial stressors. His D JOSE CRUZ is his son, does perceive he would be available to care for him at end-of-life, he is also thinking of moving back down there to [place] if he needed more help or support and his mother was no longer able to provide care. He does see her getting more frail, and does worry about the fragility of their situation.He is willing to talk with the medical palliative care medical social worker again, will need some long-term support through his journey. Results - Lab Results Lab results reviewed: Yes Impression and Recommendations - Palliative Care Impression: This is an anxious 64-year-old gentleman with metastatic colon cancer with known liver mets, and mets to the bone. Patient is currently on hold from chemotherapy, just finished radiation to his L2 lesion. He continues though with persistent fatigue, worsening anorexia, had originally had some improvement with his peripheral neuropathy, though appears to be worsening again. Palliative care providing support for pain and symptom management and anticipatory guidance. Recommendations/Counseling Done: 1. 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 Patient has had fluctuating levels of pain, have titrated on and off gabapentin and pregabalin with worsening effects. Patient would like to go to try it again, does not perceive it is currently helping. Patient does have difficulty with recall, And mild cognitive issues. We agreed with titrate back to 150 mg twice daily, and evaluate every 2 to 3 weeks for continued tapering. Patient currently just got his refill, will revisit in 2 weeks. 2. Pain of neoplastic origin. This is multifactorial, he does perceive he got increased pain relief at his L2 with radiation and his current pain regimen. He is currently on fentanyl 50 mcg, with 50 to 60 mg of oxycodone for breakthrough pain. His other area of pain is his lower abdomen, a dull constant ache. He does perceive currently this is controlled. He does feel though his pain in his back is migrated up into the left of the thoracic spine. We will continue to monitor. 3. Weight loss. Patient had been stable last time I saw him, now has had increased weight loss he is down to 160. He does appear quite thin and somewhat cachectic. Though his taste changes of improved, he is doing more poorly with early satiety, denies GERD, denies nausea. He is only using protein shakes 1 time a day, he has been instructed to increase it to twice daily. We had trialed a short course of dexamethasone with both his pain exacerbation and for appetite, does not feel like this was helpful. We will continue to monitor, patient may be appropriate for addition of mirtazapine, though given his polypharmacy would like to hold off. 4. Tobacco use. Patient continues to smoke, continues with productive cough. He is not very interested in changing his behaviors, though counseled yet again given his lung mets, history of PEs, this is not recommended. 5. Anxiety. Patient does fluctuate with his moods, at this point in time is feeling actually pretty good off of his chemotherapy, he is being evaluated for further treatment over [place]. He continues to be quite anxious regarding his cancer, he both wants to know his prognosis and also is worried about his prognosis. It makes it difficult dance. 6. Advanced care planning. Patient does have limited social support, is very dependent on his mother who is also frail and health and worsening. His D POA is his son Mohsen Henderson [phone]. He has recently been up here to visit his dad, patient does understand the seriousness of his illness. Referral to medical palliative care medical social worker with [facility]. 7. Metastatic colon cancer. Currently the plan is for him to be evaluated for Y 90 treatments for his liver mets, will continue to follow alongside. Patient does not demonstrate good problem-solving regarding health issues often, instructed to reach out if questions or problems arise. Time Spent: 45 minutes with greater than 50% of this done in counseling regarding pain and symptom management, anticipatory guidance, and coordination of care.
== END 2020-03-10 11:39 | disposition home or self-care (01) ==
LOC: PC 11:38
PROVIDERS: ATTEND Nurse Practitioner Adult Health
DX: Z51.5 Encounter for palliative care (principal); G89.3 Neoplasm related pain (acute) (chronic); G62.0 Drug-induced polyneuropathy; T45.1X5S Adverse effect of antineoplastic and immunosuppressive drugs, sequela; R63.4 Abnormal weight loss; R68.81 Early satiety; F41.9 Anxiety disorder, unspecified; F17.200 Nicotine dependence, unspecified, uncomplicated; C79.51 Secondary malignant neoplasm of bone; C78.7 Secondary malignant neoplasm of liver and intrahepatic bile duct; C78.00 Secondary malignant neoplasm of unspecified lung; C18.9 Malignant neoplasm of colon, unspecified; Z79.899 Other long term (current) drug therapy; Z79.891 Long term (current) use of opiate analgesic; Z66 Do not resuscitate

== ENCOUNTER 2020-04-07 12:26 | Outpatient (CLI) | payer MEDICARE ==
--- NOTE | 2020-04-07 13:49 | CONSULTATION NOTE ---
Palliative Care Follow Up - Referral Referring Provider: Dr. Nydia Zayas Time of Visit: 11:40-12:25 Referral setting: [facility] [place] Referral Reason: Pain of neoplastic origin/met colon ca/anxiety - Information Sources Records reviewed: Previous records reviewed History/Review of Systems obtained from: Patient Exam limitations: No limitations - History of Present Illness Update Brief HPI Update: This is a 65-year-old with metastatic colon cancer to the lung, liver, and bone. He did finish his radiation to his L2, with significant relief of his back pain. He continues though with generalized discomfort, some increase with ache with standing, relieved with laying down. He continues with severe peripheral neuropathy, had titrated back to twice a day Lyrica dosing, unfortunately had exacerbation of pain. Patient continues to experiment as he does not perceive it is of much help, though we have titrated back twice now with worsening symptoms. He continues to struggle specifically with his appetite, we had trialed a short course of dexamethasone with no improvement, he has had another six 7 pound weight loss over the month. He denies any nausea, GERD, or discomfort with eating. Just has no desire. His mother does help him sometimes with meal prep, and he cannot be real specific what is the underlying issues. Patient physically is feeling fairly well, he is quite sedentary, this is impacted both by his generalized weakness as well as his peripheral neuropathy. He does have intermittent shortness of breath, continues to smoke about 1/2 pack a day. He reports he does have a productive cough in the morning of brown sputum, no wheezing or tightness. Overall he feels somewhat lacks a days a goal, denies any increase in his depression, does have intermittent anxiety. He is unable to pinpoint this, it does come and go specifically around worries about his pending end-of-life event, he is wanting to know when he is getting within 2 years, has been quite disappointed no one's been able to further pinpoint his prognosis. He does have progressive liver disease, will be getting Y 90 treatment on 04/21 for mapping and follow-up treatment. He has not had any other abdominal symptoms, and is satisfied with his current pain regimen. Patient's other past medical history includes PE DVT he is on Lovenox, hypertension, hypercholesterolemia, gout, depression, anxiety, his original cancer diagnosis stage IV was in 2017 where he underwent a colectomy with colostomy, he does have a persistent and worsening abdominal hernia Social History - Living Situation Living arrangement: At home Living Situation: With family Support System: Patient lives at home with his mother who is 87 years old and has her own health issues. He has felt good about his son coming to visit, and now is on his second sister, who will be staying another week. He is somewhat estranged from his father, this has caused him some distress and anxiety. He continues to struggle with financial issues and stressors. Medications/Allergies - Medications Home Medications: Ambulatory Orders Medication Instructions Recorded Confirmed Sertraline [Zoloft] 150 mg PO DAILY 03/18/17 04/07/20 lisinopriL [Lisinopril] 40 mg PO DAILY 03/18/17 04/07/20 Multivitamin [Multiple Vitamins] 1 each PO DAILY 04/24/17 04/07/20 Vitamin B Complex 1 each PO DAILY 04/24/17 04/07/20 Fexofenadine HCl 180 mg PO DAILY 07/12/17 04/07/20 Oxycodone HCl 5 - 10 mg PO Q3HR PRN 07/24/18 04/07/20 Ondansetron [Zofran Odt] 8 mg PO Q8H PRN 08/21/18 04/07/20 Omeprazole 20 mg PO DAILY 04/16/19 04/07/20 Pregabalin [Lyrica] 150 mg PO BID 05/14/19 04/07/20 Promethazine [Phenergan] 25 mg PO Q6HR PRN 09/10/19 04/07/20 Enoxaparin Sodium 0.8 ml SUBQ BID 09/24/19 04/07/20 LORazepam [Ativan] 0.5 mg PO DAILY PRN MDD 1 tab 10/10/19 04/07/20 atenoloL [Tenormin] 25 mg PO DAILY #30 tablet 11/17/19 04/07/20 fentaNYL [Fentanyl 50mcg patch] 50 mcg TOP DAILY 03/10/20 04/07/20 - Allergies Allergies/Adverse Reactions: Allergies Allergy/AdvReac Type Severity Reaction Status Date / Time No Known Drug Allergies Allergy Verified 04/07/20 12:20 Review of Systems - Constitutional Constitutional: reports: Fatigue, Poor appetite, Weight loss. denies: Fever, Chills - Eyes Eyes: reports: Vision loss, Corrective lenses - Ears, Nose & Throat Ears, Nose & Throat: reports: Hearing loss, Hearing aids, Dry mouth - Cardiovascular Cardiovascular: reports: Decr. exercise tolerance. denies: Chest pain - Respiratory Respiratory: reports: Cough, Sputum production (brown sputum), SOB with exertion. denies: Hemoptysis, SOB at rest - Gastrointestinal Gastrointestinal: reports: Abdominal distention (abdominal hernia), Poor appetite, Early satiety. denies: Black stools, Nausea, Reflux/heartburn - Musculoskeletal Musculoskeletal: reports: Stiffness, Muscle weakness, Other (CIPN affects gait) - Integumentary Integumentary: reports: Dryness - Neurological Neurological: reports: General weakness, Numbness (LE), Memory problems (STM intermittent), Abnormal gait. denies: Headache - Psychiatric Psychiatric: reports: Depression, Anxiety - Hematologic/Lymphatic Hematologic/Lymphatic: reports: Anemia. denies: Recurrent infections - All Other Systems All Other Systems: reports: Reviewed and negative Physical Exam - Vital Signs Pulse Rate: 70 Respiratory Rate: 18 Blood Pressure: 113/67 - Physical Exam General Appearance: positive: No acute distress, Alert Eyes Bilateral: positive: Normal inspection, No scleral icterus, Other (periorbital edema) ENT: positive: No signs of dehydration Neck: positive: Trachea midline Cardiovascular: positive: Regular rate & rhythm Respiratory: positive: No respiratory distress, Breath sounds nml, Diminished in bases. negative: Wheezes, Rales, Rhonchi Abdomen: positive: Non-tender, Nml bowel sounds, Distended Skin: positive: Pallor, Dryness, Bruising (abdomen from lovenox shots) Extremities: positive: No pedal edema Neurologic/Psychiatric: positive: Oriented x3, Mood/affect nml Palliative Care - POLST Patient has POLST: Yes POLST Status: DNR, Selective Treatment Pain: Pain improved, Location (lower back pain better; On fentanyl 50 mcg patch, with oxycodone 10 mg up to 4-5 tabs a day. He had cut back on his pregabalin to twice daily, increased it last weeks secondary to increased CI PN. Patient does not feel "like it is working", though we have titrated back several times with the same) Tiredness/Fatigue: Moderate (4-6) Drowsiness/Sedation: Mild (1-3) Nausea: None Anorexia: Moderate (4-6), Weight loss Dyspnea: Moderate (4-6) Depression: Moderate (4-6) Anxiety: Moderate (4-6) Feelings of wellbeing/Perceived Quality of Life: Good, Acceptable, No change Sleep: Sleeps well Constipation: No Performance Status: And is quite sedentary, does ambulate short distances, mostly limited by pain and activity intolerance. He also has increased pain with standing for long periods of time. He can manage his ADLs. He is not doing any active exercise, though we have discussed this multiple times. Introduced again would be willing to make a referral to PT, could work around CIPN. - Palliative Care Discussion: Patient has been enjoying his time off chemo, has had family visiting. He is about to start with the Y 90, continues to hope for both quality and quantity of life. He is still quite fixated on the 2 years or less, though we did discuss in the context of this what he would do differently. He would want to travel, but unfortunately with COVID-19 this is really not possible at least for several months. He does perceive things are going fairly well overall, but does often feel isolated and alternates with depression and anxiety at times. Results - Lab Results Lab results reviewed: Yes Impression and Recommendations - Palliative Care Impression: This is anxious 65-year-old gentleman with metastatic colon cancer with known liver mets, pulmonary mets, and mets to the bone. He completed his radiation to L2 with good relief. Continues with persistent anorexia, with further weight loss of 4 to 5 pounds. He is pending Y 90 treatment in April, otherwise is enjoying his time off from treatment. Patient's pain currently controlled, though his peripheral neuropathy remains challenging, and also limiting as far as his ability to ambulate. Palliative care providing support for pain and symptom management and anticipatory guidance. Recommendations/Counseling Done: 1. 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 Patient has fluctuating levels of pain, had titrated back to 150 mg twice daily, unfortunately had exacerbation of his pain up to 3 times daily. Patient continues to struggle with perceiving effectiveness, will trial again 2 weeks on twice daily, if patient perceives no change, can continue to titrate off, or we will increase back to 3 times daily. We have revisited this several times. 2. Pain of neoplastic origin. This is multifactorial, he is doing better with his back pain, though still has persistent ache worsening with standing relieved with laying down. He is currently on fentanyl 50 mcg, as well as 50 to 60 mg of oxycodone for breakthrough pain. He does have a pain in his lower abdomen a dull constant ache, but is currently controlled. Patient perceives his current regimen is effective, no changes made. 3. Weight loss. Patient continues with fluctuating weights, he had gained a few pounds and now back down to 162. He does appear quite thin and with some muscle wasting. Patient presents with anorexia, not wanting to add more medications. Patient counseled on increasing calories as well as pushing more fluids that have calories in it versus water. Patient verbalized understanding. 4. Tobacco use. Patient continues to smoke and continues with productive cough. He is not interested in changing his behaviors, though has been counseled recommendation of sensation or cutting back. 5. Anxiety. Patient continues to fluctuate with his moods, he is doing better overall. He still uses lorazepam 2-3 times a week for intermittent escalations of anxiety/panic attacks. Has been counseled regarding minimizing this use, and concerns for interactions. Verbalizes understanding. 6. Advanced care planning. Patient does have again limited social support but is visiting with family this summer. He is very dependent on his mother who is also frail of health and worsening. His D POA is his son Mohsen Henderson [phone]. He is meeting now with the palliative care public health social worker for ongoing support and long-term planning. Time Spent: 45 minutes with greater than 50% of this done in counseling regarding pain and symptom management, anticipatory guidance, and coordination of care with oncology team.Will get portacath flushed today.
== END 2020-04-07 12:27 | disposition home or self-care (01) ==
LOC: PC 12:26
PROVIDERS: ATTEND Nurse Practitioner Adult Health
DX: Z51.5 Encounter for palliative care (principal); G89.3 Neoplasm related pain (acute) (chronic); G62.0 Drug-induced polyneuropathy; T45.1X5S Adverse effect of antineoplastic and immunosuppressive drugs, sequela; F41.9 Anxiety disorder, unspecified; R63.4 Abnormal weight loss; C79.51 Secondary malignant neoplasm of bone; C78.7 Secondary malignant neoplasm of liver and intrahepatic bile duct; C18.9 Malignant neoplasm of colon, unspecified; C78.00 Secondary malignant neoplasm of unspecified lung; F17.200 Nicotine dependence, unspecified, uncomplicated; Z79.899 Other long term (current) drug therapy; Z79.891 Long term (current) use of opiate analgesic; Z92.3 Personal history of irradiation; Z66 Do not resuscitate
CPT/HCPCS: 99215

== ENCOUNTER 2020-04-28 09:48 | Outpatient (CLI) | payer MEDICARE | END 2020-04-28 09:49 | disposition EMS.NT | LOC: EMS 09:48 | PROVIDERS: ATTEND Surgery | DX: R63.0 Anorexia (principal); R53.83 Other fatigue ==

== ENCOUNTER 2020-05-12 11:58 | Outpatient (CLI) | payer MEDICARE ==
--- NOTE | 2020-05-12 14:04 | CONSULTATION NOTE ---
Palliative Care Follow Up - Referral Referring Provider: Dr. Nydia Zayas Time of Visit: [id number] Referral setting: [facility] [place] Referral Reason: Pain of neoplastic origin/anxiety/Pal Care - Information Sources Records reviewed: RN notes reviewed, Previous records reviewed History/Review of Systems obtained from: Patient, Family (son Gagandeep accompanied) Exam limitations: Clinical condition (patient with STM issues) - History of Present Illness Update Brief HPI Update: This is a 65-year-old gentleman with metastatic colon cancer to the lung, liver, and bone. He has had radiation to his L2 with some relief of his back pain. He continues to have severe sharp shooting pains related to his chemotherapy- induced peripheral neuropathy, as well as balance issues, and fluctuating anorexia. He did receive his Y 90 treatment, with some increased fatigue and appetite changes, but is currently doing better. He presents today here with his son, as his complex social situation has continued to deteriorate. At this time he is continuing on surveillance with no active treatment pending scan in June, palliative care continue to provide support for pain and symptom management, as well as assistance with advanced care planning. Palliative care team including medical palliative care social media senior associate meeting with patient and son today Mohsen, Re: Next steps and concerns for patient's wellbeing as he will no longer have his mother support. Social History - Living Situation Living arrangement: At home Living Situation: With family Support System: His mother who is quite frail, has been in poor health, ended up in the hospital. It was decided that she would go live with his sister in [place], thus leaving patient without any psychosocial support, and concern for current living situation. They had shared at home and including expenses, patient has limited income. Patient does require some reminding regarding medications, meal prep and IADLs support has been deteriorating with mother's health, and concern for patient's wellbeing looking into the future.Mohsen will be staying here until 06/02, patient's Medications/Allergies - Medications Home Medications: Ambulatory Orders Medication Instructions Recorded Confirmed Sertraline [Zoloft] 150 mg PO DAILY 03/18/17 05/12/20 lisinopriL [Lisinopril] 40 mg PO DAILY 03/18/17 05/12/20 Multivitamin [Multiple Vitamins] 1 each PO DAILY 04/24/17 05/12/20 Vitamin B Complex 1 each PO DAILY 04/24/17 05/12/20 Fexofenadine HCl 180 mg PO DAILY 07/12/17 05/12/20 Oxycodone HCl 5 - 10 mg PO Q3HR PRN 07/24/18 05/12/20 Ondansetron [Zofran Odt] 8 mg PO Q8H PRN 08/21/18 05/12/20 Omeprazole 20 mg PO DAILY 04/16/19 05/12/20 Pregabalin [Lyrica] 150 mg PO BID 05/14/19 05/12/20 Promethazine [Phenergan] 25 mg PO Q6HR PRN 09/10/19 05/12/20 Enoxaparin Sodium 0.8 ml SUBQ BID 09/24/19 05/12/20 LORazepam [Ativan] 0.5 mg PO DAILY PRN MDD 1 tab 10/10/19 05/12/20 atenoloL [Tenormin] 25 mg PO DAILY #30 tablet 11/17/19 05/12/20 fentaNYL [Fentanyl 50mcg patch] 50 mcg TOP DAILY 03/10/20 05/12/20 - Allergies Allergies/Adverse Reactions: Allergies Allergy/AdvReac Type Severity Reaction Status Date / Time No Known Drug Allergies Allergy Verified 05/12/20 12:23 Review of Systems - Constitutional Constitutional: reports: Fatigue (worsening), Poor appetite, Weight loss. denies: Fever, Chills - Eyes Eyes: reports: Vision loss, Corrective lenses - Ears, Nose & Throat Ears, Nose & Throat: reports: Hearing loss, Hearing aids, Dry mouth - Cardiovascular Cardiovascular: reports: Decr. exercise tolerance - Respiratory Respiratory: reports: Cough, Sputum production (brown sputum), SOB with exertion. 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 denies: Recurrent infections - All Other Systems All Other Systems: reports: Reviewed and negative Physical Exam - Vital Signs Temperature: 96.8 C Pulse Rate: 64 Respiratory Rate: 18 Blood Pressure: 141/78 - Physical Exam General Appearance: positive: Alert, Mild distress, Anxious Eyes Bilateral: positive: Normal inspection, Other (periobital edema) ENT: positive: Hearing loss, Hearing aids, Dry mouth Neck: positive: Trachea midline Respiratory: positive: No respiratory distress Abdomen: positive: Distended Skin: positive: Pallor, Dryness Extremities: positive: No pedal edema Neurologic/Psychiatric: positive: Oriented x3, Depressed mood/affect, Flat affect Palliative Care - POLST Patient has POLST: Yes POLST Status: DNR, Selective Treatment Pain: Pain unchanged, Location (lower back; severe LE with CIPN) Tiredness/Fatigue: Severe (7-10) Drowsiness/Sedation: Moderate (4-6) Nausea: None Anorexia: Moderate (4-6), Weight loss Dyspnea: Moderate (4-6) Depression: Moderate (4-6) Anxiety: Severe (7-10) Feelings of wellbeing/Perceived Quality of Life: Fair, Acceptable Sleep: Variable sleep pattern Performance Status: Patient difficulty walking long distances because of pain and balance issues. This is impacted his ability to really manage at home by himself, concern for needing increased assistance. Patient cannot bathe himself, manage his colostomy, does need some reminders and oversight with his medication management. He is easily distracted and confused. He will need to give his Lovenox shots independently, associated restart. - Palliative Care Discussion: Patient is obviously anxious and somewhat distressed by the current situation, does not see any good solutions, son is trying to help navigate. They are going to have family meeting, his sisters are coming as well to help move mother down to [place], and help decide on a longer term plan. Patient has limited income, is challenged with his current support as far as where he is going to live and/or land. Short-term plan is son is here for couple weeks, to help navigate some of this, did discuss issues with during family meeting today with patient, son Mohsen, medical palliative care social media senior associate Daly, and myself. They will reconvene when sisters are up here, for family meeting, they will reach out to Daly to help facilitate. Impression and Recommendations - Palliative Care Impression: This is a 65-year-old gentleman with metastatic colon cancer currently on surveillance. He is just finished his Y 90 treatment, initially had some anorexia and nausea, but now is feeling better. He does continue with high symptom burden of residual CI PN pain, balance issues, activity intolerance, and challenges with anxiety and anorexia. Palliative care providing support for pain and symptom management anticipatory guidance. Recommendations/Counseling Done: 1. Chemotherapy-induced peripheral neuropathy. Patient is fluctuating pain, is currently on pregabalin 150 mg 3 times daily. Was unable to tolerate titrating back her off, will continue on current dosing. 2. Pain of neoplastic origin. This is multifactorial, he has some right upper quadrant pain with his Y 90 procedure, but is abating. He still has some persistent aching in his back, is currently on fentanyl 50 mcg patch as well as 40 to 50 mg of oxycodone for breakthrough pain. Patient perceives his current regimen is effective, no changes made. 3. Continued weight loss. Patient with fluctuating weights, he is currently at 155. He is quite thin with muscle wasting, does present with anorexia, does not want any further medications. He is having supervision from his son currently, I suspect this will improve. 4. Tobacco use. Patient continues to smoke, has been encouraged to cut back. Continues with productive cough. 5. Anxiety. Patient now with escalating anxiety, with future living situation unknown. His son is trying to help him navigate this, but he himself is in college. He does have lorazepam which he uses 2-3 times a week for intermittent escalations of anxiety/panic attacks. He has been counseled regarding minimizing use and concern for interactions. We will have family meeting in the future when sisters arrive, for further long-term planning. 6. Advanced care planning. Patient has limited social support, unfortunately his mother whom he is very dependent on has a frail health and is deteriorating. Is no longer able to provide support. His D POA is his son Mohsen Henderson [phone]. He does have a POLST with DNR and DNI, selective treatments. It is not a surprise here in her current situation as concern has been expressed ongoing about the fragility of his living arrangement. He is quite frustrated at the limitations, and lack of support are available resources from family. Time Spent: 35 minutes with greater than 50% of this done in counseling regarding current situation, long-term planning issues, on pain and symptom management, and response to Y 90. We will continue to follow every 3 or 4 weeks for symptom management, pending family conference for finalizing living situation either for short-term or long-term plan.
== END 2020-05-12 11:59 | disposition home or self-care (01) ==
LOC: PC 11:58
PROVIDERS: ATTEND Nurse Practitioner Adult Health
DX: Z51.5 Encounter for palliative care (principal); G89.3 Neoplasm related pain (acute) (chronic); G62.0 Drug-induced polyneuropathy; T45.1X5A Adverse effect of antineoplastic and immunosuppressive drugs, initial encounter; R53.83 Other fatigue; R53.1 Weakness; R63.4 Abnormal weight loss; R63.0 Anorexia; R68.81 Early satiety; R11.0 Nausea; F17.200 Nicotine dependence, unspecified, uncomplicated; F41.9 Anxiety disorder, unspecified; C18.9 Malignant neoplasm of colon, unspecified; C79.51 Secondary malignant neoplasm of bone; C78.7 Secondary malignant neoplasm of liver and intrahepatic bile duct; Z79.899 Other long term (current) drug therapy; Z79.891 Long term (current) use of opiate analgesic; Z93.3 Colostomy status; Z59.8 Other problems related to housing and economic circumstances; Z92.3 Personal history of irradiation; Z66 Do not resuscitate
CPT/HCPCS: 99214

== ENCOUNTER 2020-06-02 10:30 | Outpatient (CLI) | payer MEDICARE ==
[2020-06-02] MEDS ORDERED: IOVERSOL 320 100 ML VIAL IVP ONE ×2 (10:42→15:56)
[2020-06-02] MEDS ORDERED: IOVERSOL 320 50 ML VIAL ONE (10:42)
--- NOTE | 2020-06-02 12:44 | CT Report ---
PROCEDURE: Abdomen/Pelvis W INDICATIONS: NEOPLASM OF COLON, NEOPLASM OF LIVER CONTRAST: IV CONTRAST: Optiray 320 ml: 100 PO CONTRAST: Optiray 320 ml50 TECHNIQUE: After the administration of 100 cc IV contrast, 5 mm thick sections acquired from the diaphragms to t he symphysis. 5 mm thick coronal and sagittal reformats were acquired. For radiation dose reduction , the following was used: automated exposure control, adjustment of mA and/or kV according to patien t size. COMPARISON: Same day CT chest. CT abdomen and pelvis 02/04/2020, 12/12/2019, 03/18/2017. FINDINGS: Image quality: Excellent. ABDOMEN: Lung bases: Multiple pulmonary nodules at the lung bases are again seen. For example: Right lower lob e nodule measuring 1.4 x 1.3 cm, (3/7), previously 1 x 0.9 cm. New adjacent nodule in the right lower lobe measuring 0.8 cm, (3/8). No pleural effusion. Please see separately dictated CT chest. Solid organs: New and enlarging hepatic lesions. For example: -Enlarging heterogeneous hypodense lesion in segment 4A/8 at the dome measuring 8.1 x 4.6 cm, (3/), previously 3.5 x 3.4 cm. -Enlarging lesion in segment 7 measuring 3.2 x 2.8 cm, previously only faintly perceptible in retrosp ect. -Segment 3 lesion measuring 1.6 x 1.6 cm, (01/05), appears new. -Additional small peripherally nodular enhancing lesions in segment 7 and 2 are unchanged and most co mpatible with hemangiomas. Gallbladder is not distended. Partially calcified gallstones at the neck. Biliary system is non dilat ed. Pancreas enhances normally. Increased conspicuity of the pancreatic duct. Surgical clips inferio r to the pancreas. No adrenal nodules. Kidneys demonstrate normal size and enhancement, without hydr onephrosis. Left renal presumed cysts are unchanged. Peritoneum and bowel: Partial colectomy. Right abdomen colostomy. Parastomal hernia is unchanged. Esmer stomosis in the left abdomen. Prominent stool in the rectum. Diverticulosis. No small bowel obstructi on. No ascites. No pneumoperitoneum. Nodes and vessels: Left periaortic node measuring 1.3 x 1.2 cm, (01/11), previously 0.5 cm. Aorta and inferior vena cava are normal in size. Mild to moderate calcified metastatic plaque. Miscellaneous: Small periumbilical hernia containing a portion of small bowel. Subcutaneous nodules i n the lower abdominal wall likely due to prior injection granulomas. The subcutaneous gas is resolved . PELVIS: Genitourinary: Bladder wall thickness is normal. Miscellaneous: No inguinal hernias or adenopathy. Bones: Probable L2 Schmorl's node, more conspicuous. L1 bone island, unchanged. Bone islands in the r ight ilium are unchanged. No vertebral body compression fractures. IMPRESSION: 1. New and enlarging hepatic metastases. 2. New and enlarging pulmonary metastases. Please see separately dictated CT chest. 3. Enlarging retroperitoneal node, likely metastasis. 4. Partial colectomy. Right parastomal hernia is unchanged. Prominent stool in the rectal vault. Reviewed by: Adithya Garcia MD on 06/02/2020 12:43 PM PDT Approved by: Adithya Garcia MD on 06/02/2020 12:43 PM PDT Station ID: [id number]
[2020-06-02] MEDS ORDERED: IOVERSOL 320 50 ML VIAL PO ONE (15:56)
--- NOTE | 2020-06-02 16:47 | CT Report ---
PROCEDURE: CHEST W INDICATIONS: NEOPLASM OF COLON, NEOPLASM OF LIVER CONTRAST: IV CONTRAST: Optiray 320 ml: 100 PO CONTRAST: Optiray 320 ml50 TECHNIQUE: After the administration of intravenous contrast, 5 mm thick sections acquired from the pulmonary api clemencia to the posterior costophrenic angles. 7 mm thick coronal MIP reformats were acquired. For radia tion dose reduction, the following was used: automated exposure control, adjustment of mA and/or kV according to patient size. COMPARISON: None. FINDINGS: Image quality: Excellent. Lungs and pleura: Multiple spiculated pulmonary nodules are present bilaterally. These range in size from 2 mm in diameter to 1.6 cm in diameter. When compared with the prior CT dated 02/04/2020, visuali zed nodules at the lung bases have increased in size. For example, a 1.6 cm left posterior medial bas al segment nodule previously measured 0.8 cm in diameter (series 3/image 250). No acute airspace opac ities. No pleural effusion or pneumothorax. Mediastinum: Heart size is normal. No pericardial effusion. No mediastinal or hilar adenopathy by size criteria. The ascending thoracic aorta measures 4.7 cm in diameter in the oblique axial diameter . The central pulmonary arteries are normal in size. Esophagus is normal in caliber. No hiatal marcelina ia. Bones and chest wall: There is a right Port-A-Cath, the tip of which is at the cavoatrial junction. Left-sided lytic lesion at L2 is somewhat more sclerotic than on the prior study dated 02/04/2020 but is overall similar in size. No new suspicious lytic lesions. No vertebral body compression fractures. No axillary or supraclavicular adenopathy by size criteria. Thyroid gland is unremarkable. Abdomen: Peripherally enhancing, centrally hypodense lobulated mass lesions are noted within the dome of the liver within hepatic segments VII, VIII, and Giancarlo. Increased in size when compared with the pr ior CT dated 02/04/2020. A calcified gallstone is partially visualized within the gallbladder fundus. IMPRESSION: 1. Multiple spiculated pulmonary nodules measuring up to 1.6 cm in diameter consistent with diffuse p ulmonary metastasis. When compared with the recent CT of the abdomen dated 02/04/2020, basilar pulmona ry nodules have increased in size suggesting progression of disease. 2. Increased size of multiple centrally hypodense, peripherally enhancing hepatic lesions consistent with progression of hepatic metastasis. Please see detailed description of these findings on the asso ciated CT of the abdomen from the same date. 3. Overall stable appearance of the lytic lesion within the L2 vertebral body when compared with the CT dated 02/04/2020. Reviewed by: Anne-Marie Carroll MD on 06/02/2020 4:45 PM PDT Approved by: Anne-Marie Carroll MD on 06/02/2020 4:45 PM PDT Station ID: [id number]
== END 2020-06-02 10:31 | disposition home or self-care (01) ==
LOC: DI 10:30
PROVIDERS: ATTEND Internal Medicine Hematology & Oncology
DX: C18.9 Malignant neoplasm of colon, unspecified (principal); C78.7 Secondary malignant neoplasm of liver and intrahepatic bile duct; R59.0 Localized enlarged lymph nodes; K43.5 Parastomal hernia without obstruction or gangrene; C78.02 Secondary malignant neoplasm of left lung; C78.01 Secondary malignant neoplasm of right lung; M89.9 Disorder of bone, unspecified; Z90.49 Acquired absence of other specified parts of digestive tract
CPT/HCPCS: 71260; 74177; Q9967

== ENCOUNTER 2020-06-02 14:07 | Outpatient (CLI) | payer MEDICARE ==
--- NOTE | 2020-06-02 17:11 | CONSULTATION NOTE ---
Palliative Care Follow Up - Referral Referring Provider: Dr. Nydia Zayas Time of Visit: [id number] [address]erral setting: [facility] Referral Reason: Pain of neoplastic origin/Anxiety/Met Colon CA/Wt loss - Information Sources Records reviewed: Previous records reviewed History/Review of Systems obtained from: Patient Exam limitations: Clinical condition (patient with STM/cognitive deficits) - History of Present Illness Update Brief HPI Update: This is a 65-year-old gentleman who I have followed since March 2019 for palliative care support regarding quality of life issues. Patient has had persistent pain, severe chemotherapy-induced peripheral neuropathy, depression, severe anxiety, declining functional and cognitive status, and now presents with increasing weight loss and anorexia. Patient has known metastatic colon cancer with liver and lung mets, and metastatic disease to his L2. He has recently receive Y 90 treatment on 04/29/2020, with exacerbation of anorexia and weight loss. He also has received palliative radiation to his lumbar spine, with some improvement though he reports increasing pain today. He was treated with FOLFOX until developed severe limiting/worsening peripheral neuropathy that has persisted, headaches, has been on surveillance There now has a escalating CEA, in March it was 16.5, May 10.6. He has had a complicated course, with hospitalizations for PE/DVT, currently on Lovenox. Intermittent gout, sepsis, dehydration, and altered mental status. Unfortunately his complex social situation, has now resulted in him needing to relocate. He had been living with his elderly mother, who now has deteriorating health problems. He is losing his housing, will be moving to [place], to be closer to his sister and son. At this point in time he will be staying with his sister for couple weeks, while he transitions to [facility], and gets established on services. He does have significant anxiety regarding this, and will be leaving 06/18. Patient's pain has been persistent in his lower back area, did get some relief with palliation, but now reports radiating pain in lower back area worsening. He has been on fentanyl 50 mcg patch, this can be increased but patient pain pattern is mostly worsening during the day, this is attributed to his chemotherapy-induced peripheral neuropathy. He is on Lyrica 150 mg 3 times daily, we have trialed him off several times, with worsening pain. He often forgets as he does not perceive often it is "helping him". His CIPN worsens with weight bearing, walking, relieved with laying down and off "feet". He does have numbness and balance issues, and some fine motor peripheral neuropathy as well. He is using oxycodone 10 mg tablets, 4-5 times a day, timing this in the context of his activity. Patient reports today symptom increased pain overall, has pending scans, concern for progressive disease. Patient's other persistent symptom is his anxiety, has been managed on his sertraline 150 mg, with intermittent lorazepam for his "panic attacks", he has been adhering to and using this only intermittently though these have been increasing with his increasing complex social situation. Patient's other medical history includes hypertension, PE/DVT, hypercholesterolemia, gout, depression, anxiety, his original cancer diagnosis stage IV was 2017 where he underwent a colectomy and colostomy. He has had persistent and worsening abdominal hernia. Social History - Living Situation Living arrangement: At home Living Situation: Alone Support System: Patient had been living with his elderly mother, whose health has worsened. She is relocating to be near her daughter in [place]. Patient will stay with her as well for 2 to 3 weeks while finding housing. Patient is currently still living in home, but does have friends staying with to help monitor, cueing, and household tasks. Patient's son, is aware of patient's deteriorating status, had hoped to return to [place] near to him. This will be easier though for him to manage his he is a D POA, and patient is needing increased assistance in navigating his care needs. Medications/Allergies - Medications Home Medications: Ambulatory Orders Medication Instructions Recorded Confirmed Sertraline [Zoloft] 150 mg PO DAILY 03/18/17 05/12/20 lisinopriL [Lisinopril] 40 mg PO DAILY 03/18/17 05/12/20 Multivitamin [Multiple Vitamins] 1 each PO DAILY 04/24/17 05/12/20 Vitamin B Complex 1 each PO DAILY 04/24/17 05/12/20 Fexofenadine HCl 180 mg PO DAILY 07/12/17 05/12/20 Oxycodone HCl 5 - 10 mg PO Q3HR PRN 07/24/18 05/12/20 Ondansetron [Zofran Odt] 8 mg PO Q8H PRN 08/21/18 05/12/20 Omeprazole 20 mg PO DAILY 04/16/19 05/12/20 Pregabalin [Lyrica] 150 mg PO BID 05/14/19 05/12/20 Promethazine [Phenergan] 25 mg PO Q6HR PRN 09/10/19 05/12/20 Enoxaparin Sodium 0.8 ml SUBQ BID 09/24/19 05/12/20 LORazepam [Ativan] 0.5 mg PO DAILY PRN MDD 1 tab 10/10/19 05/12/20 atenoloL [Tenormin] 25 mg PO DAILY #30 tablet 11/17/19 05/12/20 fentaNYL [Fentanyl 50mcg patch] 50 mcg TOP DAILY 03/10/20 05/12/20 - Allergies Allergies/Adverse Reactions: Allergies Allergy/AdvReac Type Severity Reaction Status Date / Time No Known Drug Allergies Allergy Verified 05/12/20 12:23 Review of Systems - Constitutional Constitutional: reports: Fatigue (worsening), Weight loss (149; down from 160 end of April). denies: Fever, Chills - Eyes Eyes: reports: Blurred vision, Vision loss, Corrective lenses - Ears, Nose & Throat Ears, Nose & Throat: reports: Hearing loss, Hearing aids, Nasal congestion, Dry mouth - Cardiovascular Cardiovascular: reports: Exertional dyspnea, Decr. exercise tolerance. denies: Chest pain - Respiratory Respiratory: reports: Cough, Sputum production (brown tinged; continues to smoke), SOB with exertion - Gastrointestinal Gastrointestinal: reports: Reflux/heartburn, Early satiety, Other (colostomy) - Genitourinary Genitourinary: reports: Frequency, Urgency - Musculoskeletal Musculoskeletal: reports: Muscle pain, Back pain, Muscle aches, Stiffness, Limited range of motion, Muscle weakness - Integumentary Integumentary: reports: Dryness, Other (bruising from lovenox) - Neurological Neurological: reports: General weakness, Memory problems (worsening). denies: Headache - Psychiatric Psychiatric: reports: Depression, Anxiety - Hematologic/Lymphatic Hematologic/Lymphatic: reports: Anemia, Blood clots. denies: Recurrent infections - All Other Systems All Other Systems: reports: Reviewed and negative Physical Exam - Vital Signs Temperature: 37.2 C Pulse Rate: 55 Respiratory Rate: 16 O2 Saturation: 96 (ra @ rest) Blood Pressure: 133/79 - Physical Exam General Appearance: positive: Alert, Mild distress, Anxious, Cachetic Eyes Bilateral: positive: Normal inspection, Other (periobital edema) ENT: positive: No signs of dehydration Neck: positive: Trachea midline Cardiovascular: positive: Regular rate & rhythm Respiratory: positive: No respiratory distress, Diminished in bases. negative: Wheezes, Rales, Rhonchi Abdomen: positive: Distended Skin: positive: Pallor, Dryness Extremities: positive: No pedal edema Neurologic/Psychiatric: positive: Oriented x3, Depressed mood/affect, Flat affect Palliative Care - POLST Patient has POLST: Yes POLST Status: DNR, Selective Treatment Pain: Pain worsening, Location (see HPI) Tiredness/Fatigue: Moderate (4-6) Drowsiness/Sedation: Mild (1-3) Nausea: None Anorexia: Moderate (4-6), Weight loss Dyspnea: Moderate (4-6) Depression: Moderate (4-6) Anxiety: Severe (7-10) Feelings of wellbeing/Perceived Quality of Life: Fair, Acceptable, Worsening Sleep: Variable sleep pattern Constipation: No Performance Status: Patient is able to ambulate short distances, does need frequent rest related to activity intolerance and pain. Patient is managing his ADLs, but does need support with IADLs and oversight and cueing for medications and tracking.He does recognize when he relocates, he is going to need someone/caregiver to help him overall. He does have a friend currently staying with him, his son just left yesterday. - Palliative Care Discussion: Patient is quite saddened and grieving loss of his current situation, he and his mother were "teetering" but were managing at some level. Patient has continued to decline both functionally and cognitively, he is concerned about his pending transition to a new care team. He does have significant financial and social stressors. He has always understood the seriousness of his illness, does have a POLST form with do not attempt resuscitation, and selective treatment. His D POA is his son Mohsen Thorpe [phone], Lives in [place], and has been up trying to help transition patient and his grandmother. He himself is still a student, had hoped patient would move closer to him to be able to continue to support him. Patient's hope had been to travel as part of his "bucket list", and take his mo ther to [place]. He has felt somewhat overwhelmed with the COVID-19 pandemic, as it has queried some of his travel plans. He is hoping for the best, but is at high risk for continued sequela of his disease and complications from his current social situation. Impression and Recommendations - Palliative Care Impression: This is a 65-year-old gentleman with metastatic colon cancer, with known mets to the lung, liver, and bone. He has had ongoing cognitive and functional decline, worsening weight loss, and exacerbation of his pain today, as well as complicated social situation. Patient is planning to move to [place], establish care in [facility] [place] [facility]. Encouraged to reach out to palliative care for ongoing management of pain, anxiety, and anticipatory guidance. Recommendations/Counseling Done: 1. Chemotherapy-induced peripheral neuropathy. Patient is continue to go with balance, fluctuating pain, is currently on pregabalin 150 mg 3 times daily. We will continue with current dosing, has trialed off of it previously, patient has been on gabapentin prior, has done better on Lyrica. 2. Pain of neoplastic origin. This is multifactorial, does present with worsening discomfort, and persistent aching in his lower back. Is currently on fentanyl 50 mcg patch, as well as 40 to 50 mg of oxycodone for breakthrough pain. At this point in time current regimen is effective, no changes made. Prescriptions provided for travel. 3. Weight loss. Patient has continued to have persistent weight loss, now presents at 149, this is a 6 pound weight loss since last visit on 05/12. He does present cachectic with muscle wasting, he reports his appetite is improved again. He is attempting to increase calories and fluids. Concern related to most likely sequela of disease at this point in time. Patient with pending outcome of scans. 4. Tobacco use. Patient continues to smoke, continues with productive cough, patient has been encouraged to cut back and cessation strategies reviewed. 5. Anxiety. Patient with escalating anxiety, son has helped him with transition plan, patient currently going to [place]. Plan is to reestablish at [facility] [place] [facility], he will need further support from palliative care. He does use lorazepam 2-3 times a week for anxiety/panic attacks. Psychosocial support pro vided, complex social situation persist. 6. Advanced care planning. Patient has limited social support, his son is his D JOSE CRUZ Mohsen Maurilio [phone]. He does have a POLST with DNR/DNI and morales ctive treatments. Patient with pending transition to [facility] [place] [facility]. Will await outcome of scans, unclear patient will need further palliative care support before transition. Time Spent: 30 minutes with greater than 50% of this done in counseling regarding pain and symptom management, transition plan to new care team, support regarding anxiety.
== END 2020-06-02 14:08 | disposition home or self-care (01) ==
LOC: PC 14:07
PROVIDERS: ATTEND Nurse Practitioner Adult Health
DX: Z51.5 Encounter for palliative care (principal); G89.3 Neoplasm related pain (acute) (chronic); F41.9 Anxiety disorder, unspecified; R41.89 Other symptoms and signs involving cognitive functions and awareness; G62.0 Drug-induced polyneuropathy; T45.1X5A Adverse effect of antineoplastic and immunosuppressive drugs, initial encounter; R63.4 Abnormal weight loss; R64 Cachexia; R63.0 Anorexia; R53.1 Weakness; R53.83 Other fatigue; C79.51 Secondary malignant neoplasm of bone; C18.9 Malignant neoplasm of colon, unspecified; C78.7 Secondary malignant neoplasm of liver and intrahepatic bile duct; C78.00 Secondary malignant neoplasm of unspecified lung; Z79.899 Other long term (current) drug therapy; Z79.891 Long term (current) use of opiate analgesic; Z79.01 Long term (current) use of anticoagulants; Z72.0 Tobacco use; Z74.1 Need for assistance with personal care; Z86.711 Personal history of pulmonary embolism; Z86.718 Personal history of other venous thrombosis and embolism; Z59.8 Other problems related to housing and economic circumstances; Z92.3 Personal history of irradiation; Z66 Do not resuscitate
CPT/HCPCS: 99214